=== PATIENT | male | born 1965 | race Caucasian/White ===

== ENCOUNTER 2020-02-11 12:00 | Outpatient (REF) | payer MEDICAID, SELFPAY ==
[2020-02-11 14:13] LABS: Estimated Average Glucose 220 mg/dL; Hemoglobin A1c % 9.3 %
[2020-02-11 14:22] LABS: Anion Gap 20 (12-20); Blood Urea Nitrogen 14 mg/dL (9-16); Carbon Dioxide 20 mmol/L (22-29); Chloride 100 mmol/L (96-108); Estimated Glomerular Filt Rate > 60; Glucose Random 272 mg/dL (60-115); Potassium 4.5 mmol/l (3.3-5.1); Sodium 135 mmol/L (135-145)
[2020-02-11 14:29] LABS: Vitamin D 25-OH Total 21.2 ng/mL (>30)
== END 2020-02-11 12:01 | disposition home or self-care (01) ==
LOC: HO.10HDL 12:00
PROVIDERS: Visit Provider Internal Medicine
DX: E11.9 Type 2 diabetes mellitus without complications (principal); E55.9 Vitamin D deficiency, unspecified; J44.9 Chronic obstructive pulmonary disease, unspecified
CPT/HCPCS: 80048; 82306; 83036

== ENCOUNTER 2020-03-26 12:07 | Outpatient (REF) | payer MEDICAID, SELFPAY ==
[2020-04-10 08:06] LABS: Testosterone, Total 327 ng/dL (250-1100)
== END 2020-03-26 12:08 | disposition home or self-care (01) ==
LOC: HO.10HDL 12:07
PROVIDERS: Visit Provider Urology
DX: E29.1 Testicular hypofunction (principal)
CPT/HCPCS: 84402; 84403

== ENCOUNTER → 2020-04-09 09:55 | Outpatient (BNVA) | payer MEDICAID, SELFPAY | PROVIDERS: PCP Internal Medicine; Visit Provider Urology | DX: Z76.89 Persons encountering health services in other specified circumstances (principal) ==

== ENCOUNTER → 2020-04-16 14:12 | Outpatient (BNVA) | payer MEDICAID, SELFPAY | PROVIDERS: PCP Internal Medicine; Visit Provider Urology | DX: Z76.89 Persons encountering health services in other specified circumstances (principal) ==

== ENCOUNTER 2020-05-15 10:31 | Outpatient (REF) | payer MEDICAID, SELFPAY ==
[2020-05-15 14:19] LABS: Estimated Average Glucose 186 mg/dL; Hemoglobin A1c % 8.1 %
[2020-05-15 14:44] LABS: Anion Gap 21 (12-20); Blood Urea Nitrogen 21 mg/dL (9-16); Calcium 9.5 mg/dL (8.4-10.2); Carbon Dioxide 21 mmol/L (22-29); Chloride 99 mmol/L (96-108); Estimated Glomerular Filt Rate > 60; Glucose Random 221 mg/dL (60-115); Potassium 4.8 mmol/L (3.3-5.1); Sodium 136 mmol/L (135-145)
[2020-05-15 15:06] LABS: Vitamin D 25-OH Total 36.4 ng/mL (>30)
== END 2020-05-15 10:32 | disposition home or self-care (01) ==
LOC: HO.10HDL 10:31
PROVIDERS: Visit Provider Internal Medicine
DX: E11.9 Type 2 diabetes mellitus without complications (principal); J44.9 Chronic obstructive pulmonary disease, unspecified; E55.9 Vitamin D deficiency, unspecified
CPT/HCPCS: 36415; 80048; 82306; 83036

== ENCOUNTER 2020-08-13 09:59 | Outpatient (REF) | payer MEDICAID, SELFPAY ==
[2020-08-13 12:49] LABS: MANUAL DIFF FLAG NO
[2020-08-13 12:57] LABS: Basophils Percent Auto 0.6 % (0-2); Eosinophils Absolute Auto 0.3 X10*3/uL (0.0-0.4); Eosinophils Percent Auto 3.6 % (0-4); Hematocrit 41.6 % (42-52); Hemoglobin 14.2 g/dl (14.0-18.0); Imm Gran Abs Auto 0.05 X10*3/uL (0.00-0.03); Imm Gran Pct Auto 0.7 % (0.0-0.4); Lymphocytes Absolute Auto 1.8 X10*3/uL (1.2-4.9); Lymphocytes Percent Auto 26.1 % (20-40); Mean Corpuscular HGB Conc 34.1 g/dl (31.0-36.0); Mean Corpuscular Hemoglobin 31.8 pg (27.0-33.0); Mean Corpuscular Volume 93.3 fL (80-98); Mean Platelet Volume 10.3 fL (9.4-12.4); Monocytes Absolute Auto 0.6 X10*3/uL (0.1-1.2); Monocytes Percent Auto 8.1 % (2-11); Neutrophils Absolute Auto 4.2 X10*3/uL (2.0-8.3); Neutrophils Percent Auto 60.9 % (45-73); Platelet Count 282 X10*3/uL (160-400); Red Blood Count 4.46 X10*6/uL (4.60-5.80); Red Cell Distribution Width 13.4 % (11.0-16.0); White Blood Count 6.9 X10*3/uL (4.8-10.8)
[2020-08-13 13:08] LABS: Estimated Average Glucose 197 mg/dL; Hemoglobin A1c % 8.5 %
[2020-08-13 13:23] LABS: Alanine Aminotransferase 16 U/L (0-40); Albumin Level 4.3 g/dL (3.5-5.0); Alkaline Phosphatase 108 U/L (39-117); Anion Gap 17 (12-20); Aspartate Amino Transferase 17 U/L (5-37); Bilirubin Total 0.5 mg/dL (0.0-1.0); Blood Urea Nitrogen 23 mg/dL (9-16); Carbon Dioxide 24 mmol/L (22-29); Chloride 103 mmol/L (96-108); Estimated Glomerular Filt Rate 56; Glucose Random 220 mg/dL (60-115); Sodium 139 mmol/L (135-145); Total Protein 7.2 g/dL (6.5-8.0)
[2020-08-13 13:26] LABS: Creatinine Urine 106.16 mg/dL; Microalbum/Creatinine Ratio Ur 60.2 ug/mg cr
== END 2020-08-13 10:00 | disposition home or self-care (01) ==
LOC: HO.10HDL 09:59
PROVIDERS: Visit Provider Internal Medicine
DX: E11.9 Type 2 diabetes mellitus without complications (principal); J44.9 Chronic obstructive pulmonary disease, unspecified
CPT/HCPCS: 36415; 80053; 82043; 83036; 85025

== ENCOUNTER 2020-09-06 13:37 | Emergency (ER) | payer MEDICAID, SELFPAY ==
--- NOTE | 2020-09-06 | ECG_ITS ---
Test Reason : CHEST PAIN Blood Pressure : / mmHG Vent. Rate : 089 BPM Atrial Rate : 089 BPM P-R Int : 130 ms QRS Dur : 078 ms QT Int : 332 ms P-R-T Axes : -29 004 052 degrees QTc Int : 403 ms Normal sinus rhythm Normal ECG When compared with ECG of 30-APR-2019 18:45, No significant change was found Referred By: Generic ED Physician Electronically Signed By:SIMONE VALDOVINOS
--- NOTE | ~2020-09-06 | XR_ITS ---
EXAMINATION: XR CHEST CLINICAL INFORMATION: Chest pain COMPARISON: 04/30/2019 chest x-ray TECHNIQUE: 2 views of the chest were obtained. FINDINGS: Stable cardiac and mediastinal silhouette. No focal consolidation. No effusion or pulmonary edema. No pneumothorax. Stable mild coarsening of interstitium in bilateral lower lungs. Thoracic spine degeneration. Spinal fusion hardware. XR/XR chest 2V IMPRESSION: No evidence of airspace consolidation or pulmonary edema.
[2020-09-06 13:47] VITALS: BP 152/91; PULSE 96; RESP 19; TEMP 36.2; O2SAT 96; BMI 34.7
[2020-09-06 14:00] VITALS: BP 126/78; PULSE 89; RESP 14; O2SAT 94
--- NOTE | 2020-09-06 14:01 | ED_ITS ---
HPI - Chest Pain General Chief Complaint: Chest Pain Stated Complaint: CHEST AND BACK PAIN Time Seen by Provider: 09/06/20 14:01 Source: patient Mode of arrival: ambulatory Limitations: no limitations History of Present Illness HPI narrative: 55-year-old male who presents emergency department for evaluation of lower back pain and chest pain. Patient states that he has history of chronic lower back pain secondary to disc disease and arthritis. He states that over the last 3 weeks he has had increased back pain. He points to his lumbar area of his lower back when asked to localize the pain. He describes the pain as a constant, squeezing pain which is worse if he stands, better if he bends over. The pain is worse at night worse in the morning. He states that he has been taking Tylenol for the pain with no relief. States this pain is currently 10/10. The pain does radiate down his left leg. He states that he does have chronic numbness of the left lower extremity but no weakness. He denies loss of bowel or bladder control. He denies frequency, urgency or dysuria. He denied fever or chills. The patient states that he has also developed left-sided chest pain. He states that the pain is very brief and lasts seconds to minutes. The pain is worse with movement. He states that he occasionally feels short of breath but denied dyspnea on exertion. He states that the chest pain is [id number] in intensity. Related Data Previous Rx's Medication Instructions Recorded tamsulosin 0.4 mg capsule 0.4 mg PO DAILY #30 cap 03/17/20 testosterone 20.25 mg/1.25 gram 20.25 mg TRANSDERMAL DAILY 30 Days 09/02/20 (1.62 %) transdermal gel pump #120 g hydrocodone-acetaminophen 1 tab PO Q4H PRN #14 tab 09/06/20 prednisone 40 mg PO DAILY 5 Days #10 tab 09/06/20 Allergies Allergy/AdvReac Type Severity Reaction Status Date / Time morphine [MORPHINE] Allergy Unknown NAUSEA, Unverified 12/27/19 18:15 nausea and vomiting Review of Systems Review of Systems: Yes all other systems are reviewed and are negative [facility] Past Medical History [facility] Narrative: Social history: Patient smokes 1 pack of cigarettes per day times 25 years, he occasionally drinks alcohol, he denies drug use. Medical History Elevated PSA Enlarged prostate with lower urinary tract symptoms (LUTS) Erectile dysfunction due to diseases classified elsewhere Other obstructive and reflux uropathy Peyronie's disease Rotator cuff impingement syndrome of left shoulder Type II diabetes mellitus Family History Family History Father No problems noted. Mother No problems noted. Social History Social History Advance Directives: Yes Advance Directives Information Provided: Yes Advance Directives on File: No Physical Exam Vital Signs: Vital Signs: Last Vital Signs Temp 97.1 F 09/06/20 13:47 Pulse 89 09/06/20 14:00 Resp 14 09/06/20 14:00 BP 126/78 09/06/20 14:00 Pulse Ox 94 09/06/20 14:00 Body Mass Index 34.7 Const: General: cooperative Orientation/consciousness: oriented to person and oriented to place Limitations: no limitations HENMT: Head: Yes normal to inspection, Yes normocephalic and Yes atraumatic Ears: external ears normal General nose exam: Normal external nose present Face and sinus: Yes normal facial exam Mouth: Normal oral and palatal mucosa present Throat: Yes posterior oropharynx normal Eyes: Periorbital: periorbital findings normal Eyelids: Yes eyelids normal Conjunctivae: conjunctivae normal Sclerae: sclerae normal Corneas: co rneas normal Pupils: Equal, round and reactive pupils present Direct Ophthalmoscopy: normal light reflex Neck: Neck: Yes full ROM, Yes no lymphadenopathy, Yes no meningeal signs, Yes trachea midline and Yes supple Chest: Chest palpation & inspection: normal inspection of the chest and normal palpation of entire chest wall Resp: Effort & Inspection: normal respiratory effort and able to speak in complete sentences Auscultation: clear to auscultation bilaterally Cardio: Rate: regular rate Rhythm: regular rhythm Heart sounds: S1 normal heart sound present, S2 normal heart sound present and no murmurs GI: Inspection: Yes normal to inspection Palpation (GI): Soft to palpation, nontender, no guarding, not rigid and No hepatosplenomegaly present : General: Yes no CVA tenderness Back/Spine/Pelvis: Back: no CVA tenderness Cervical Spine: normal cervical lordosis Thoracic/Lumbar Spine: thoracic and lumbar spine normal to inspection, straight leg raise negative bilaterally, paraspinal muscle tenderness bilaterally in the lower lumbar and lumbar spinal tenderness Skin: Lesions: no lesions Rashes: no rashes Wounds: no wounds Neuro: General: oriented to person, oriented to place and no meningeal signs Cranial nerves: Yes CN's II-XII intact bilaterally and Yes Equal, round and reactive pupils present Cognition (Neuro): normal cognition Motor exam (ne uro): 5/5 motor strength present throughout Extrem: General: Yes normal to inspection and Yes full ROM Psych: Appearance: well kempt Mental Status: mental status grossly normal Speech and movement: Normal speech and movement present Affect: normal aff ect Attitude: cooperative Thought process: Normal thought process present Thought content: Normal thought content present Course Course Course Narrative: 55-year-old male with history of chronic lower back pain secondary to disc disease and arthritis who presents emergency department for evaluation of lower back pain x3 weeks with worsening pain over the last 2-3 days. He also complained of left-sided chest pain. Physical examination did reveal pain with palpation of his the lumbar spine and lumbar paraspinal muscles otherwise was unremarkable. His vital signs revealed elevated blood pressure 152/91 otherwise were unremarkable. Twelve lead EKG was unremarkable. Laboratory evaluation revealed an elevated glucose of 228 and a detectable but not elevated high sensitive troponin of 3.7. Chest x-ray was unremarkable. At this time I do not think that his chest pain is secondary to myocardial injury. His back pain is most likely caused by flare-up of his chronic back pain. He was treated with Dilaudid 1 mg IV with improvement of his pain. He states that he has been treated with Vicodin in the past as well. Patient will be started on prednisone 40 mg once a day for 5 days and Vicodin/Forgan 1 pill every 4-6 hours as needed for pain. He was given verbal and printed instructions and discharged home. MDM - Chest Pain Lab Data Result diagrams: 09/06/20 14:26 09/06/20 14:26 Labs: Lab Results 09/06/20 09/06/20 09/06/20 Range/Units 14:26 14:26 14:26 WBC 7.7 (4.8-10.8) X10*3/uL RBC 4.79 (4.60-5.80) X10*6/uL Hgb 15.4 (14.0-18.0) g/dl Hct 44.2 (42-52) % MCV 92.3 (80-98) fL MCH 32.2 (27.0-33.0) pg MCHC 34.8 (31.0-36.0) g/dl RDW 13.3 (11.0-16.0) % Plt Count 295 (160-400) X10*3/uL MPV 9.6 (9.4-12.4) fL Immature Gran % (Auto) 1.0 H (0.0-0.4) % Neut % (Auto) 63.7 (45-73) % Lymph % (Auto) 23.3 (20-40) % [place] % (Auto) 8.6 (2-11) % Eos % (Auto) 2.6 (0-4) % Baso % (Auto) 0.8 (0-2) % Lymph # (Auto) 1.8 (1.2-4.9) X10*3/uL [place] # (Auto) 0.7 (0.1-1.2) X10*3/uL Eos # (Auto) 0.2 (0.0-0.4) X10*3/uL Baso # (Auto) 0.1 (0.0-0.2) X10*3/uL Abs Immat Gran (auto) 0.08 H (0.00-0.03) X10*3/uL Absolute Neuts (auto) 4.9 (2.0-8.3) X10*3/uL Absolute Nucleated RBC 0.000 (0.0-0.012) X10*3/uL Nucleated RBC % (auto) 0.0 (0.0-0.2) /100WBC Sodium 138 (135-145) mmol/L Potassium 4.6 (3.3-5.1) mmol/L Chloride 101 (96-108) mmol/L Carbon Dioxide 24 (22-29) mmol/L Anion Gap 18 (12-20) BUN 22 H (9-16) mg/dL Creatinine 1.11 (0.5-1.4) mg/dL Estim Creat Clear Calc 88.3 Estimated GFR > 60 Random Glucose 228 H (60-115) mg/dL Calcium 10.4 H (8.4-10.2) mg/dL Total Bilirubin 0.4 (0.0-1.0) mg/dL AST 19 (5-37) U/L ALT 24 (0-40) U/L Alkaline Phosphatase 94 (39-117) U/L Troponin I High Sens 3.7 (<3.5-35.0) ng/L Total Protein 7.8 (6.5-8.0) g/dL Albumin 4.8 (3.5-5.0) g/dL ECG Data ECG #1: Attestation: I personally reviewed and interpreted this ECG as follows: Interpretation: 1418: Normal sinus rhythm rate of 89, normal [place], QRS and QTC intervals, no ST segment elevation, no ST segment depression, no PA Cs, no PVCs, this is a normal EKG. Discharge Plan Discharge Clinical Impression: Acute lumbar back pain Qualifiers: Back pain laterality: midline Sciatica presence: without sciatica Qualified Code(s): M54.5 - Low back pain Chest pain Qualifiers: Chest pain type: other chest pain Qualified Code(s): R07.89 - Other chest pain Patient Disposition: Home, Self-Care Instructions: Acute Low Back Pain (ED) Additional Instructions: Your laboratory evaluation was unremarkable. Your 12 lead EKG was unremarkable. Your chest x-ray was unremarkable. Your lower back pain is most likely caused by a flare-up of your chronic back p ain. Take prednisone 20 mg pills, 2 pills once a day for 5 days. This is a strong anti-inflammatory pain medication. Do not take any [id number] anti- inflammatory medications while you taking prednisone such as Advil, Motrin, ibuprofen, Aleve, naproxen. Take Tylenol (acetaminophen) 500 mg pills, 2 pills every 4 to 6 hours as needed for pain. For pain not relieved by prednisone or Tylenol take Vicodin/Forgan 1 pill every 4-6 hours as needed for pain. Follow-up with your doctor in 2 days. Please return to the emergency department if your symptoms get worse or if you develop any symptoms that are concerning to you. Prescriptions: New hydrocodone-acetaminophen 5-325 mg tablet 1 tab PO Q4H PRN (Reason: pain) Qty: 14 RF: 0 prednisone 20 mg tablet 40 mg PO DAILY 5 Days Qty: 10 RF: 0 No Action tamsulosin 0.4 mg capsule 0.4 mg PO DAILY Qty: 30 RF: 5 testosterone 20.25 mg/1.25 gram (1.62 %) gel in metered-dose pump 20.25 mg transdermal DAILY 30 Days Qty: 120 RF: 3
[2020-09-06 14:30] LABS: MANUAL DIFF FLAG NO
[2020-09-06 14:31] LABS: Basophils Absolute Auto 0.1 X10*3/uL (0.0-0.2); Basophils Percent Auto 0.8 % (0-2); Eosinophils Absolute Auto 0.2 X10*3/uL (0.0-0.4); Eosinophils Percent Auto 2.6 % (0-4); Hematocrit 44.2 % (42-52); Hemoglobin 15.4 g/dl (14.0-18.0); Imm Gran Abs Auto 0.08 X10*3/uL (0.00-0.03); Lymphocytes Absolute Auto 1.8 X10*3/uL (1.2-4.9); Lymphocytes Percent Auto 23.3 % (20-40); Mean Corpuscular HGB Conc 34.8 g/dl (31.0-36.0); Mean Corpuscular Hemoglobin 32.2 pg (27.0-33.0); Mean Corpuscular Volume 92.3 fL (80-98); Mean Platelet Volume 9.6 fL (9.4-12.4); Monocytes Absolute Auto 0.7 X10*3/uL (0.1-1.2); Monocytes Percent Auto 8.6 % (2-11); Neutrophils Absolute Auto 4.9 X10*3/uL (2.0-8.3); Neutrophils Percent Auto 63.7 % (45-73); Platelet Count 295 X10*3/uL (160-400); Red Blood Count 4.79 X10*6/uL (4.60-5.80); Red Cell Distribution Width 13.3 % (11.0-16.0); White Blood Count 7.7 X10*3/uL (4.8-10.8)
[2020-09-06 14:54] LABS: Troponin-I High Sensitivity 3.7 ng/L (<3.5-35.0)
[2020-09-06 15:05] LABS: Alanine Aminotransferase 24 U/L (0-40); Albumin Level 4.8 g/dL (3.5-5.0); Alkaline Phosphatase 94 U/L (39-117); Anion Gap 18 (12-20); Aspartate Amino Transferase 19 U/L (5-37); Bilirubin Total 0.4 mg/dL (0.0-1.0); Blood Urea Nitrogen 22 mg/dL (9-16); Calcium 10.4 mg/dL (8.4-10.2); Carbon Dioxide 24 mmol/L (22-29); Chloride 101 mmol/L (96-108); Creatinine Clr Calc Pharmacy 88.3; Estimated Glomerular Filt Rate > 60; Glucose Random 228 mg/dL (60-115); Potassium 4.6 mmol/L (3.3-5.1); Sodium 138 mmol/L (135-145); Total Protein 7.8 g/dL (6.5-8.0)
[2020-09-06] MEDS: HYDROmorphone HCl 1 MG/ML SYRINGE IVPUSH (15:14)
[2020-09-06 16:16] VITALS: BP 105/63; PULSE 88; RESP 18; TEMP 36.8; O2SAT 95
== END 2020-09-06 16:48 | disposition home or self-care (01) ==
PROVIDERS: Emergency Provider Emergency Medicine Emergency Medical Services; PCP Internal Medicine
DX: R07.9 Chest pain, unspecified (principal); M54.5 Low back pain; Z79.899 Other long term (current) drug therapy
CPT/HCPCS: 36415; 71046; 80053; 84484; 85025; 93005; 96374; 99284; J1170

== ENCOUNTER 2020-10-24 11:40 | Emergency (ER) | payer MEDICAID, SELFPAY ==
[2020-10-24 11:54] VITALS: BP 131/77; PULSE 103; RESP 22; TEMP 36.6; O2SAT 92; BMI 34.0
[2020-10-24] MEDS: Tetracaine HCl/PF 0.5% Oph Sol 4 ML DROPS 2 DROP EYE-RIGHT (12:39)
[2020-10-24] MEDS: Fluorescein Sodium STRIP 1 STRIP EYE-RIGHT (12:40)
--- NOTE | 2020-10-24 12:50 | ED.EYEPROB ---
HPI - Eye Problem General Chief complaint: Eye Problems Stated complaint: eye injury Time Seen by Provider: 10/24/20 12:32 Source: patient Mode of arrival: wheelchair Limitations: no limitations History of Present Illness HPI Narrative: Patient is a 55-year-old female with no significant past medical history who scratched his eye and a flap of a cardboard box last night. Patient states he rinsed his eye out but it has been very painful since. He states he could take the pain anymore so he came in today. He states he can see shapes and light out of that eye but that is all. Related Data Previous Rx's Medication Instructions Recorded tamsulosin 0.4 mg capsule 0.4 mg PO DAILY #30 cap 03/17/20 testosterone 20.25 mg/1.25 gram 20.25 mg TRANSDERMAL DAILY 30 Days 09/02/20 (1.62 %) transdermal gel pump #120 g hydrocodone-acetaminophen 1 tab PO Q4H PRN #14 tab 09/06/20 prednisone 40 mg PO DAILY 5 Days #10 tab 09/06/20 oxycodone 5 mg PO Q6H PRN #20 tab 10/24/20 Allergies Allergy/AdvReac Type Severity Reaction Status Date / Time morphine [MORPHINE] Allergy Unknown NAUSEA, Verified 10/24/20 11:54 nausea and vomiting Review of Systems Review of Systems: Yes all other systems are reviewed and are negative [facility] Past Medical History Medical History Elevated PSA Enlarged prostate with lower urinary tract symptoms (LUTS) Erectile dysfunction due to diseases classified elsewhere Other obstructive and reflux uropathy Peyronie's disease Rotator cuff impingement syndrome of left shoulder Type II diabetes mellitus Family History Family History Father No problems noted. Mother No problems noted. Social History Social History Advance Directives: No Advance Directives Information Provided: Yes Physical Exam Vital Signs: Vital Signs: Last Vital Signs Temp 97.9 F 10/24/20 11:54 Pulse 103 H 10/24/20 11:54 Resp 22 H 10/24/20 11:54 BP 131/77 10/24/20 11:54 Pulse Ox 92 10/24/20 11:54 Body Mass Index 34.0 Const: General: cooperative, healthy appearing, comfortable and no acute distress Nutritional Appearance: average body habitus Orientation/consciousness: patient oriented x3 HENMT: Head: Yes normal to inspection, Yes No palpable skull fracture present, Yes normocephalic and Yes atraumatic Ears: hearing grossly normal bilaterally Eyes: Alignment and Position: alignment normal and position normal Periorbital: periorbital findings normal Corneas: corneas abnormal on the right fluorescein used and abrasion (covering almost entire iris) diffuse and fluorescein used EOM: EOMs intact bilaterally Neck: Neck: Yes normal visual inspection and Yes full ROM Resp: Effort & Inspection: normal respiratory effort and able to speak in complete sentences Neuro: General: patient oriented x3 Course Course Course Narrative: Dr. Goss examined patient, concurred with assessment and plan Procedures Procedure Narrative Procedure Narrative: Applied tetracaine, 1 drop to right eye, used fluorescein dye and looked with a Wood's lamp to see diffuse corneal abrasion on the right eye covering almost the entire iris. Discharge Plan Discharge Clinical Impression: Abrasion, corneal Qualifiers: Encounter type: initial encounter Laterality: right Qualified Code(s): S05.01XA - Injury of conjunctiva and corneal abrasion without foreign body, right eye, initial encounter Patient Disposition: Home, Self-Care Instructions: Corneal Abrasion (ED) Additional Instructions: I have made an appointment for you with an quantity surveyor, Dr. Loving at the [facility] [employer] [facility] [employer] [facility] [address] [facility] in [place]. Your appointment is at 09:00 on TuesdayOctober 27. They asked that you come alone and wear a mask and if you are having any cold or flu symptoms that you call them to reschedule. Their phone number is [phone]. If you experience changes in your vision or pain that cannot be controlled with the oxycodone, please return to the emergency department. Prescriptions: New oxycodone 5 mg tablet 5 mg PO Q6H PRN (Reason: pain) Qty: 20 RF: 0 No Action tamsulosin 0.4 mg capsule 0.4 mg PO DAILY Qty: 30 RF: 5 testosterone 20.25 mg/1.25 gram (1.62 %) gel in metered-dose pump 20.25 mg transdermal DAILY 30 Days Qty: 120 RF: 3 hydrocodone-acetaminophen 5-325 mg tablet 1 tab PO Q4H PRN (Reason: pain) Qty: 14 RF: 0 prednisone 20 mg tablet 40 mg PO DAILY 5 Days Qty: 10 RF: 0 Referrals: Tee Zavala MD [Physician] - 3 days (9am Tuesday)
[2020-10-24] MEDS: Erythromycin Base 0.5% Oph Oin 1 GM TUBE 1 CM EYE-RIGHT (13:43)
[2020-10-24] MEDS: oxyCODONE HCl Immed Release 5 MG TABLET PO (13:43)
== END 2020-10-24 14:03 | disposition home or self-care (01) ==
PROVIDERS: Emergency Provider Emergency Medicine; PCP Internal Medicine
DX: S05.01XA Injury of conjunctiva and corneal abrasion without foreign body, right eye, initial encounter (principal); X58.XXXA Exposure to other specified factors, initial encounter; Y93.9 Activity, unspecified; Y92.9 Unspecified place or not applicable; Y99.9 Unspecified external cause status
CPT/HCPCS: 99283

== ENCOUNTER 2020-11-21 12:08 | Outpatient (REF) | payer MEDICAID, SELFPAY ==
[2020-11-21 13:30] LABS: MANUAL DIFF FLAG NO
[2020-11-21 13:31] LABS: Basophils Percent Auto 0.6 % (0-2); Eosinophils Absolute Auto 0.2 X10*3/uL (0.0-0.4); Eosinophils Percent Auto 2.9 % (0-4); Hematocrit 42.9 % (42-52); Hemoglobin 14.5 g/dl (14.0-18.0); Imm Gran Abs Auto 0.08 X10*3/uL (0.00-0.03); Imm Gran Pct Auto 1.3 % (0.0-0.4); Lymphocytes Absolute Auto 1.6 X10*3/uL (1.2-4.9); Lymphocytes Percent Auto 26.4 % (20-40); Mean Corpuscular HGB Conc 33.8 g/dl (31.0-36.0); Mean Corpuscular Hemoglobin 31.5 pg (27.0-33.0); Mean Corpuscular Volume 93.1 fL (80-98); Mean Platelet Volume 10.1 fL (9.4-12.4); Monocytes Absolute Auto 0.6 X10*3/uL (0.1-1.2); Monocytes Percent Auto 10.2 % (2-11); Neutrophils Absolute Auto 3.6 X10*3/uL (2.0-8.3); Neutrophils Percent Auto 58.6 % (45-73); Platelet Count 249 X10*3/uL (160-400); Red Blood Count 4.61 X10*6/uL (4.60-5.80); Red Cell Distribution Width 13.4 % (11.0-16.0); White Blood Count 6.2 X10*3/uL (4.8-10.8)
[2020-11-21 13:45] LABS: Estimated Average Glucose 200 mg/dL; Hemoglobin A1c % 8.6 %
[2020-11-21 13:53] LABS: Alanine Aminotransferase 21 U/L (0-40); Albumin Level 4.5 g/dL (3.5-5.0); Alkaline Phosphatase 78 U/L (39-117); Anion Gap 17 (12-20); Aspartate Amino Transferase 17 U/L (5-37); Bilirubin Total 0.2 mg/dL (0.0-1.0); Blood Urea Nitrogen 22 mg/dL (9-16); Calcium 10.5 mg/dL (8.4-10.2); Carbon Dioxide 25 mmol/L (22-29); Chloride 102 mmol/L (96-108); Estimated Glomerular Filt Rate > 60; Glucose Random 196 mg/dL (60-115); Potassium 4.7 mmol/L (3.3-5.1); Sodium 139 mmol/L (135-145); Total Protein 7.3 g/dL (6.5-8.0)
[2020-11-21 14:27] LABS: Creatinine Urine 73.97 mg/dL; Microalbum/Creatinine Ratio Ur 155.4 ug/mg cr
[2020-11-28 12:01] LABS: Testosterone, Total 1009 ng/dL (250-1100)
== END 2020-11-21 12:09 | disposition home or self-care (01) ==
LOC: HO.LAB 12:08
PROVIDERS: Absent Provider Internal Medicine; PCP Internal Medicine; Visit Provider Urology
DX: E29.1 Testicular hypofunction (principal); E11.9 Type 2 diabetes mellitus without complications; I10 Essential (primary) hypertension; J44.9 Chronic obstructive pulmonary disease, unspecified
CPT/HCPCS: 36415; 80053; 82043; 83036; 84403; 85025

== ENCOUNTER → 2020-12-12 11:20 | Outpatient (BNVA) | payer MEDICAID, SELFPAY | PROVIDERS: PCP Internal Medicine; Visit Provider Urology ==

== ENCOUNTER 2020-12-26 16:11 | Outpatient (REF) | payer MEDICAID, SELFPAY ==
[2020-12-26 18:11] LABS: Hematocrit 39.2 % (42-52); Hemoglobin 13.6 g/dl (14.0-18.0); Mean Corpuscular HGB Conc 34.7 g/dl (31.0-36.0); Mean Corpuscular Hemoglobin 32.4 pg (27.0-33.0); Mean Corpuscular Volume 93.3 fL (80-98); Mean Platelet Volume 9.6 fL (9.4-12.4); Platelet Count 345 X10*3/uL (160-400); Red Cell Distribution Width 13.2 % (11.0-16.0); White Blood Count 7.4 X10*3/uL (4.8-10.8)
[2020-12-26 18:15] LABS: Appearance Urine CLEAR; Color Urine YELLOW; Glucose Urine UA >=1000 MG/DL (NEG); Leukocyte Esterase Urine NEG (NEG); Nitrite Urine NEG (NEG); Specific Gravity - Urine 1.025 (1.005-1.025); Urine Blood NEG (NEG); Urine Ketones NEG (NEG); Urine Protein 1+ MG/DL (NEG-TRACE)
[2020-12-26 18:30] LABS: Creatinine Urine 118.17 mg/dL; Microalbum/Creatinine Ratio Ur 236.9 ug/mg cr; Total Protein Urine Random 43 mg/dL (<12)
[2020-12-26 18:47] LABS: Squamous Epithelial Cell Urine TRACE /LPF; WBC Urine 0-2 /HPF (0-4)
[2020-12-26 19:07] LABS: Albumin Level 4.5 g/dL (3.5-5.0); Blood Urea Nitrogen 18 mg/dL (9-16); Calcium 10.6 mg/dL (8.4-10.2); Estimated Glomerular Filt Rate > 60; Magnesium 1.3 mg/dL (1.6-2.6); Phosphorus 3.3 mg/dL (2.7-4.5)
[2020-12-26 19:11] LABS: Vitamin D 25-OH Total 42.6 ng/mL (>30)
[2020-12-26 20:13] LABS: Anion Gap 17 (12-20); Carbon Dioxide 23 mmol/L (22-29); Chloride 101 mmol/L (96-108); Potassium 4.3 mmol/L (3.3-5.1); Sodium 137 mmol/L (135-145)
[2020-12-26 20:18] LABS: Renal w Reflex Lab Use Only Order verified
[2020-12-29 14:02] LABS: Calcium (PTHI) 10.2 mg/dL (8.6-10.3); PTHI 16 pg/mL (14-64)
== END 2020-12-26 16:12 | disposition home or self-care (01) ==
LOC: HO.LAB 16:11
PROVIDERS: PCP Internal Medicine; Visit Provider Internal Medicine Nephrology
DX: I10 Essential (primary) hypertension (principal); E11.21 Type 2 diabetes mellitus with diabetic nephropathy
CPT/HCPCS: 36415; 80051; 81001; 82040; 82043; 82306; 82310; 82565; 83735; 83970; 84100; 84156; 84520; 85027; 87086

== ENCOUNTER 2021-02-21 10:10 | Outpatient (REF) | payer MEDICAID, SELFPAY ==
[2021-02-21 11:45] LABS: Estimated Average Glucose 183 mg/dL
[2021-02-21 12:06] LABS: Creatinine Urine 194.38 mg/dL; Microalbum/Creatinine Ratio Ur 98.7 ug/mg cr
[2021-02-21 12:12] LABS: Alanine Aminotransferase 23 U/L (0-40); Albumin Level 4.4 g/dL (3.5-5.0); Alkaline Phosphatase 78 U/L (39-117); Anion Gap 17 (12-20); Aspartate Amino Transferase 17 U/L (5-37); Bilirubin Total 0.3 mg/dL (0.0-1.0); Blood Urea Nitrogen 21 mg/dL (9-16); Calcium 9.8 mg/dL (8.4-10.2); Carbon Dioxide 21 mmol/L (22-29); Chloride 105 mmol/L (96-108); Estimated Glomerular Filt Rate > 60; Glucose Fasting 168 mg/dL (60-99); Potassium 4.8 mmol/L (3.3-5.1); Sodium 138 mmol/L (135-145); Total Protein 7.4 g/dL (6.5-8.0)
== END 2021-02-21 10:11 | disposition home or self-care (01) ==
LOC: HO.LAB 10:10
PROVIDERS: PCP Internal Medicine; Visit Provider Internal Medicine
DX: E11.9 Type 2 diabetes mellitus without complications (principal); I10 Essential (primary) hypertension; J44.9 Chronic obstructive pulmonary disease, unspecified
CPT/HCPCS: 36415; 80053; 82043; 83036

== ENCOUNTER 2021-04-29 13:43 | Outpatient (REF) | payer MEDICAID, SELFPAY ==
[2021-04-29 14:48] LABS: Calcium 10.9 mg/dL (8.4-10.2)
[2021-04-29 14:49] LABS: Anion Gap 16 (12-20); Blood Urea Nitrogen 18 mg/dL (9-16); Carbon Dioxide 22 mmol/L (22-29); Chloride 103 mmol/L (96-108); Estimated Glomerular Filt Rate > 60; Glucose Random 216 mg/dL (60-115); Potassium 4.5 mmol/L (3.3-5.1); Sodium 136 mmol/L (135-145)
[2021-04-29 15:00] LABS: Creatinine Urine 104.47 mg/dL; Protein/Creatinine Ratio, Ur 0.16 (<0.2); Total Protein Urine Random 17 mg/dL (<12)
[2021-04-30 16:16] LABS: Calcium (PTHI) 10.7 mg/dL (8.6-10.3); PTHI 9 pg/mL (14-64)
[2021-05-01 20:55] LABS: Prot Elec - Albumin 4.6 g/dL (3.8-4.8); Prot Elec - Alpha1 0.3 g/dL (0.2-0.3); Prot Elec - Alpha2 0.9 g/dL (0.5-0.9); Prot Elec - Beta 1 0.5 g/dL (0.4-0.6); Prot Elec - Beta 2 0.4 g/dL (0.2-0.5); Prot Elec - Gamma 0.8 g/dL (0.8-1.7); Prot Elec - Total Protein 7.4 g/dL (6.1-8.1)
== END 2021-04-29 13:44 | disposition home or self-care (01) ==
LOC: HO.LAB 13:43
PROVIDERS: PCP Internal Medicine; Visit Provider Internal Medicine Hypertension Specialist
DX: E11.29 Type 2 diabetes mellitus with other diabetic kidney complication (principal)
CPT/HCPCS: 36415; 80048; 83970; 84156; 84165

== ENCOUNTER 2021-06-08 09:50 | Outpatient (REF) | payer MEDICAID, SELFPAY ==
[2021-06-08 14:39] LABS: PSA,Total (Free>4and<10) 0.53 ng/mL (0.00-4.00)
[2021-06-13 09:15] LABS: Testosterone, Free 225.5 pg/mL (35.0-155.0); Testosterone, Total 716 ng/dL (250-1100)
== END 2021-06-08 09:51 | disposition home or self-care (01) ==
LOC: HO.10HDL 09:50
PROVIDERS: Visit Provider Urology
DX: E29.1 Testicular hypofunction (principal); Z12.5 Encounter for screening for malignant neoplasm of prostate
CPT/HCPCS: 36415; 84153; 84402; 84403

== ENCOUNTER → 2021-06-17 10:00 | Outpatient (BNVA) | payer MEDICAID, SELFPAY | PROVIDERS: PCP Internal Medicine; Visit Provider Urology ==

== ENCOUNTER 2021-06-24 11:28 | Outpatient (REF) | payer MEDICAID, SELFPAY ==
[2021-06-24 14:17] LABS: Estimated Average Glucose 169 mg/dL; Hemoglobin A1c % 7.5 %
[2021-06-24 14:53] LABS: Anion Gap 17 (12-20); Blood Urea Nitrogen 24 mg/dL (9-16); Calcium 10.9 mg/dL (8.4-10.2); Carbon Dioxide 23 mmol/L (22-29); Chloride 99 mmol/L (96-108); Estimated Glomerular Filt Rate > 60; Glucose Random 250 mg/dL (60-115); Sodium 134 mmol/L (135-145)
== END 2021-06-24 11:29 | disposition home or self-care (01) ==
LOC: HO.10HDL 11:28
PROVIDERS: PCP Internal Medicine; Visit Provider Internal Medicine
DX: E11.9 Type 2 diabetes mellitus without complications (principal); J44.9 Chronic obstructive pulmonary disease, unspecified; I10 Essential (primary) hypertension
CPT/HCPCS: 36415; 80048; 83036

== ENCOUNTER 2021-08-21 07:21 | Outpatient (REF) | payer MEDICAID, SELFPAY ==
--- NOTE | ~2021-08-21 | XR_ITS ---
EXAMINATION: XR SHOULDER, RIGHT CLINICAL INFORMATION: Pain right shoulder. COMPARISON: None TECHNIQUE: Three views of the right shoulder. FINDINGS: There is mild loss of right AC and glenohumeral joint space without any bony erosive changes. No visible acute fracture, dislocation or subluxation seen. The soft tissues are normal. XR/XR shoulder RT min 2V IMPRESSION: Mild degenerative changes right shoulder joint. No visible acute fracture, dislocation or subluxation seen.
== END 2021-08-21 07:22 | disposition home or self-care (01) ==
LOC: HO.HOSX 07:21
PROVIDERS: Visit Provider Orthopaedic Surgery
DX: M75.41 Impingement syndrome of right shoulder (principal); E11.9 Type 2 diabetes mellitus without complications; M89.8X1 Other specified disorders of bone, shoulder
CPT/HCPCS: 20610; 73030; 99202; J1100

== ENCOUNTER → 2021-09-15 09:41 | Outpatient (BNVA) | payer MEDICAID, SELFPAY | PROVIDERS: PCP Internal Medicine; Visit Provider Orthopaedic Surgery | DX: M72.0 Palmar fascial fibromatosis [Dupuytren] (principal); R20.0 Anesthesia of skin; R20.2 Paresthesia of skin; M62.542 Muscle wasting and atrophy, not elsewhere classified, left hand; M62.541 Muscle wasting and atrophy, not elsewhere classified, right hand | CPT/HCPCS: 99202 ==

== ENCOUNTER 2021-10-28 11:54 | Outpatient (REF) | payer MEDICAID, SELFPAY ==
[2021-10-28 13:59] LABS: Alanine Aminotransferase 16 U/L (0-40); Albumin Level 4.6 g/dL (3.5-5.0); Alkaline Phosphatase 81 U/L (39-117); Anion Gap 16 (12-20); Aspartate Amino Transferase 18 U/L (5-37); Bilirubin Total 0.3 mg/dL (0.0-1.0); Blood Urea Nitrogen 16 mg/dL (9-16); Calcium 9.4 mg/dL (8.4-10.2); Carbon Dioxide 23 mmol/L (22-29); Chloride 105 mmol/L (96-108); Estimated Glomerular Filt Rate > 60; Glucose Random 150 mg/dL (60-115); Potassium 4.9 mmol/L (3.3-5.1); Sodium 139 mmol/L (135-145); Total Protein 7.3 g/dL (6.5-8.0)
[2021-10-28 14:41] LABS: Creatinine Urine 93.34 mg/dL; Total Protein Urine Random 33 mg/dL (<12)
[2021-10-30 11:17] LABS: Calcium (PTHI) 9.6 mg/dL (8.6-10.3); PTHI 30 pg/mL (16-77)
== END 2021-10-28 11:55 | disposition home or self-care (01) ==
LOC: HO.10HDL 11:54
PROVIDERS: Visit Provider Internal Medicine Hypertension Specialist
DX: I10 Essential (primary) hypertension (principal)
CPT/HCPCS: 36415; 80053; 82306; 83970; 84156

== ENCOUNTER 2021-12-16 10:02 | Outpatient (REF) | payer MEDICAID, SELFPAY ==
[2021-12-16 11:21] LABS: Prostate Specific Antigen 0.68 ng/mL (<0.05-4.0)
[2021-12-21 11:41] LABS: Testosterone, Total 536 ng/dL (250-1100)
== END 2021-12-16 10:03 | disposition home or self-care (01) ==
LOC: HO.10HDL 10:02
PROVIDERS: Visit Provider Urology
DX: Z12.5 Encounter for screening for malignant neoplasm of prostate (principal); E29.1 Testicular hypofunction
CPT/HCPCS: 36415; 84153; 84403; 85014

== ENCOUNTER → 2021-12-23 10:45 | Outpatient (BNVA) | payer MEDICAID, SELFPAY | PROVIDERS: PCP Internal Medicine; Visit Provider Urology | DX: E29.1 Testicular hypofunction (principal) | CPT/HCPCS: 99212 ==

== ENCOUNTER 2021-12-31 10:16 | Outpatient (REF) | payer MEDICAID, SELFPAY ==
[2021-12-31 11:02] LABS: MANUAL DIFF FLAG NO
[2021-12-31 11:07] LABS: Basophils Absolute Auto 0.1 X10*3/uL (0.0-0.2); Basophils Percent Auto 0.9 % (0-2); Eosinophils Absolute Auto 0.3 X10*3/uL (0.0-0.4); Eosinophils Percent Auto 4.2 % (0-4); Hematocrit 43.5 % (42.0-52.0); Hemoglobin 15.3 g/dl (14.0-18.0); Imm Gran Abs Auto 0.04 X10*3/uL (0.00-0.03); Imm Gran Pct Auto 0.6 % (0.0-0.4); Lymphocytes Absolute Auto 1.3 X10*3/uL (1.2-4.9); Lymphocytes Percent Auto 19.2 % (20-40); Mean Corpuscular HGB Conc 35.2 g/dl (31.0-36.0); Mean Corpuscular Hemoglobin 31.8 pg (27.0-33.0); Mean Corpuscular Volume 90.4 fL (80.0-98.0); Mean Platelet Volume 9.6 fL (9.4-12.4); Monocytes Absolute Auto 0.7 X10*3/uL (0.1-1.2); Monocytes Percent Auto 9.5 % (2-11); Neutrophils Absolute Auto 4.6 x10*3/uL (2.0-8.3); Neutrophils Percent Auto 65.6 % (45-73); Platelet Count 268 X10*3/uL (160-400); Red Blood Count 4.81 X10*6/uL (4.60-5.80); Red Cell Distribution Width 12.7 % (11.0-16.0)
[2021-12-31 11:22] LABS: Estimated Average Glucose 120 mg/dL; Hemoglobin A1c % 5.8 %
[2021-12-31 11:40] LABS: Alanine Aminotransferase 28 U/L (0-40); Albumin Level 4.2 g/dL (3.5-5.0); Alkaline Phosphatase 82 U/L (39-117); Anion Gap 16 (12-20); Aspartate Amino Transferase 25 U/L (5-37); Bilirubin Total 0.3 mg/dL (0.0-1.0); Blood Urea Nitrogen 10 mg/dL (9-16); Calcium 9.8 mg/dL (8.4-10.2); Carbon Dioxide 26 mmol/L (22-29); Chloride 103 mmol/L (96-108); Cholesterol 165 mg/dL; Estimated Glomerular Filt Rate > 60; Glucose Fasting 147 mg/dL (60-99); HDL Cholesterol 36 mg/dL; LDL Cholesterol Calculated 101 mg/dl; Potassium 4.2 mmol/L (3.3-5.1); Sodium 141 mmol/L (135-145); Total Protein 6.8 g/dL (6.5-8.0); Triglycerides 142 mg/dL
[2021-12-31 12:00] LABS: Vitamin D 25-OH Total 27.2 ng/mL (>30)
[2021-12-31 14:27] LABS: Creatinine Urine 216.18 mg/dL; Microalbum/Creatinine Ratio Ur 136.4 ug/mg cr
== END 2021-12-31 10:17 | disposition home or self-care (01) ==
LOC: HO.10HDL 10:16
PROVIDERS: Visit Provider Internal Medicine
DX: E78.5 Hyperlipidemia, unspecified (principal); J44.9 Chronic obstructive pulmonary disease, unspecified; E11.9 Type 2 diabetes mellitus without complications; N40.0 Benign prostatic hyperplasia without lower urinary tract symptoms; E55.9 Vitamin D deficiency, unspecified
CPT/HCPCS: 36415; 80053; 80061; 82043; 82306; 83036; 85025

== ENCOUNTER → 2022-01-13 10:33 | Outpatient (BNVA) | payer MEDICAID, SELFPAY | PROVIDERS: PCP Internal Medicine; Visit Provider Orthopaedic Surgery | DX: M72.0 Palmar fascial fibromatosis [Dupuytren] (principal); R20.0 Anesthesia of skin; R20.2 Paresthesia of skin; M62.542 Muscle wasting and atrophy, not elsewhere classified, left hand; M62.541 Muscle wasting and atrophy, not elsewhere classified, right hand | CPT/HCPCS: 99212 ==

== ENCOUNTER 2022-01-27 10:40 | Outpatient (REF) | payer MEDICAID, SELFPAY ==
--- NOTE | ~2022-01-27 | MM_ITS ---
EXAMINATION: BONE DENSITOMETRY CLINICAL INDICATION: Low back pain, fatigue. COMPARISON: None (current study represents initial baseline exam). TECHNIQUE: Using a [employer] DXA System (software version: 13.1) manufactured by [employer], dual-energy x-ray absorptiometry was performed of the lumbar spine and left hip. The images are of good technical quality. Summary results are attached. FINDINGS: AP SPINE L1-L4: BMD 1.152 g/cm2, Z-score -0.8, T-score -0.6, normal. LEFT FEMUR, NECK: BMD 0.903 g/cm2, Z-score -0.8, T-score -1.3, osteopenia. LEFT FEMUR, TOTAL: BMD 0.980 g/cm2, Z-score -0.7, T-score -0.8, normal. IDENTIFIED RISK FACTORS: Height loss, tobacco use (current smoker), secondary osteoporosis. HISTORY OF FRACTURE: None listed. MEDICATIONS: Vitamin D. MM/XR DEXA axial skeleton IMPRESSION: 1. DIAGNOSIS: Osteopenia based on the lowest T-score value of -1.3 in the femoral neck applying World Health Organization criteria. 2. 10-YEAR FRACTURE RISK PREDICTION, FRAX: Major osteoporotic fracture (clinical spine, forearm, hip or shoulder) 5.2%. Hip fracture 0.8%. 3. Treatment Recommendations: NOF guidelines recommend consideration for treatment in postmenopausal women and men age 50 and older presenting with the following: -A hip or vertebral (clinical or morphometric) fracture. -T-score less than or equal to -2.5 at the femoral neck or spine after appropriate evaluation to exclude secondary causes. -Low bone mass at the hip or spine and a 10-year fracture probability by FRAX of greater than or equal to 3% for hip fracture or greater than or equal to 20% for major osteoporotic fracture based on the [place] adapted WHO algorithm. 4. Other Recommendations: All treatment decisions require clinical judgment and consideration of individual patient factors, including patient preferences, comorbidities, previous drug use, risk factors not captured in the FRAX model (e.g. frailty, falls, vitamin D deficiency, increased bone turnover, interval significant decline in bone density) and possible under or overestimation of fracture risk by FRAX. Additional medical evaluation for secondary cause of low bone mineral density may be appropriate. FUTURE SCAN RECOMMENDATION: People with diagnosed cases of osteoporosis or at high risk for fracture should have regular bone mineral density tests. For patients eligible for Medicare, routine testing is allowed once every 2 years. The testing frequency can be increased to one year for patients who have rapidly progressing disease, those who are receiving or discontinuing medical therapy to restore bone mass, or have additional risk factors.
== END 2022-01-27 10:41 | disposition home or self-care (01) ==
LOC: HO.MAMMO 10:40
PROVIDERS: PCP Internal Medicine; Visit Provider Internal Medicine
DX: Z13.820 Encounter for screening for osteoporosis (principal); M81.0 Age-related osteoporosis without current pathological fracture; F17.200 Nicotine dependence, unspecified, uncomplicated; Z79.899 Other long term (current) drug therapy
CPT/HCPCS: 77080

== ENCOUNTER 2022-04-07 09:22 | Outpatient (REF) | payer MEDICAID, SELFPAY ==
[2022-04-07 10:29] LABS: MANUAL DIFF FLAG NO
[2022-04-07 10:38] LABS: Basophils Absolute Auto 0.1 X10*3/uL (0.0-0.2); Basophils Percent Auto 0.9 % (0-2); Eosinophils Absolute Auto 0.3 X10*3/uL (0.0-0.4); Eosinophils Percent Auto 4.5 % (0-4); Hematocrit 42.7 % (42.0-52.0); Hemoglobin 14.7 g/dl (14.0-18.0); Imm Gran Abs Auto 0.04 X10*3/uL (0.00-0.03); Imm Gran Pct Auto 0.6 % (0.0-0.4); Lymphocytes Absolute Auto 1.5 X10*3/uL (1.2-4.9); Lymphocytes Percent Auto 22.5 % (20-40); Mean Corpuscular HGB Conc 34.4 g/dl (31.0-36.0); Mean Corpuscular Hemoglobin 31.8 pg (27.0-33.0); Mean Corpuscular Volume 92.4 fL (80.0-98.0); Mean Platelet Volume 9.9 fL (9.4-12.4); Monocytes Absolute Auto 0.5 X10*3/uL (0.1-1.2); Monocytes Percent Auto 7.3 % (2-11); Neutrophils Absolute Auto 4.1 x10*3/uL (2.0-8.3); Neutrophils Percent Auto 64.2 % (45-73); Platelet Count 246 X10*3/uL (160-400); Red Blood Count 4.62 X10*6/uL (4.60-5.80); Red Cell Distribution Width 12.7 % (11.0-16.0); White Blood Count 6.4 X10*3/uL (4.8-10.8)
[2022-04-07 10:43] LABS: Estimated Average Glucose 140 mg/dL; Hemoglobin A1c % 6.5 %
[2022-04-07 12:03] LABS: Alanine Aminotransferase 16 U/L (0-40); Albumin Level 4.2 g/dL (3.5-5.0); Alkaline Phosphatase 97 U/L (39-117); Anion Gap 14 (12-20); Aspartate Amino Transferase 15 U/L (5-37); Bilirubin Total 0.2 mg/dL (0.0-1.0); Blood Urea Nitrogen 18 mg/dL (9-16); Calcium 9.6 mg/dL (8.4-10.2); Carbon Dioxide 24 mmol/L (22-29); Chloride 104 mmol/L (96-108); Estimated Glomerular Filt Rate > 60; Glucose Random 240 mg/dL (60-115); Potassium 4.4 mmol/L (3.3-5.1); Sodium 138 mmol/L (135-145); Total Protein 6.5 g/dL (6.5-8.0)
== END 2022-04-07 09:23 | disposition home or self-care (01) ==
LOC: HO.10HDL 09:22
PROVIDERS: Visit Provider Internal Medicine
DX: E11.9 Type 2 diabetes mellitus without complications (principal); J44.9 Chronic obstructive pulmonary disease, unspecified; I10 Essential (primary) hypertension
CPT/HCPCS: 36415; 80053; 83036; 85025

== ENCOUNTER 2022-05-19 13:07 | Outpatient (REF) | payer MEDICAID, SELFPAY ==
[2022-05-19 14:43] LABS: Hematocrit 47.5 % (42.0-52.0)
[2022-05-19 15:10] LABS: Creatinine Urine 173.42 mg/dL; Protein/Creatinine Ratio, Ur 0.28 (<0.2); Total Protein Urine Random 48 mg/dL (<12)
[2022-05-19 15:40] LABS: Vitamin D 25-OH Total 23.2 ng/mL (>30)
[2022-05-19 15:41] LABS: Prostate Specific Antigen 0.86 ng/mL (<0.05-4.0)
[2022-05-19 16:11] LABS: Anion Gap 21 (12-20); Blood Urea Nitrogen 10 mg/dL (9-16); Calcium 10.2 mg/dL (8.4-10.2); Carbon Dioxide 21 mmol/L (22-29); Chloride 100 mmol/L (96-108); Estimated Glomerular Filt Rate > 60; Glucose Random 200 mg/dL (60-115); Potassium 4.8 mmol/L (3.3-5.1); Sodium 137 mmol/L (135-145)
[2022-05-20 12:39] LABS: Calcium (PTHI) 10.2 mg/dL (8.6-10.3); PTHI 10 pg/mL (16-77)
[2022-05-25 12:24] LABS: Testosterone, Total 517 ng/dL (250-1100)
== END 2022-05-19 13:08 | disposition home or self-care (01) ==
LOC: HO.LAB 13:07
PROVIDERS: Urology; PCP Internal Medicine; Visit Provider Internal Medicine Hypertension Specialist
DX: E11.22 Type 2 diabetes mellitus with diabetic chronic kidney disease (principal); N18.31 Chronic kidney disease, stage 3a; E29.1 Testicular hypofunction
CPT/HCPCS: 36415; 80048; 82306; 83970; 84153; 84156; 84403; 85014

== ENCOUNTER 2022-06-18 10:58 | Outpatient (REF) | payer MEDICAID, SELFPAY ==
[2022-06-18 13:53] LABS: Hematocrit 46.8 % (42.0-52.0)
[2022-06-18 14:34] LABS: Prostate Specific Antigen 0.88 ng/mL (<0.05-4.0)
[2022-06-25 14:59] LABS: Testosterone, Total 530 ng/dL (250-1100)
== END 2022-06-18 10:59 | disposition home or self-care (01) ==
LOC: HO.10HDL 10:58
PROVIDERS: Visit Provider Urology
DX: E29.1 Testicular hypofunction (principal)
CPT/HCPCS: 36415; 84153; 84403; 85014

== ENCOUNTER → 2022-07-01 13:37 | Outpatient (BNVA) | payer MEDICAID, SELFPAY | PROVIDERS: PCP Internal Medicine; Visit Provider Urology ==

== ENCOUNTER 2022-09-21 07:56 | Outpatient (REF) | payer MEDICAID, SELFPAY ==
[2022-09-21 11:05] LABS: MANUAL DIFF FLAG NO
[2022-09-21 11:09] LABS: Basophils Absolute Auto 0.1 X10*3/uL (0.0-0.2); Basophils Percent Auto 0.6 % (0-2); Eosinophils Absolute Auto 0.2 X10*3/uL (0.0-0.4); Hematocrit 48.6 % (42.0-52.0); Hemoglobin 16.7 g/dl (14.0-18.0); Imm Gran Abs Auto 0.05 X10*3/uL (0.00-0.03); Imm Gran Pct Auto 0.6 % (0.0-0.4); Lymphocytes Absolute Auto 2.3 X10*3/uL (1.2-4.9); Lymphocytes Percent Auto 27.9 % (20-40); Mean Corpuscular HGB Conc 34.4 g/dl (31.0-36.0); Mean Corpuscular Volume 93.1 fL (80.0-98.0); Mean Platelet Volume 9.9 fL (9.4-12.4); Monocytes Absolute Auto 0.7 X10*3/uL (0.1-1.2); Monocytes Percent Auto 8.1 % (2-11); Neutrophils Absolute Auto 4.8 x10*3/uL (2.0-8.3); Neutrophils Percent Auto 59.8 % (45-73); Platelet Count 243 X10*3/uL (160-400); Red Blood Count 5.22 X10*6/uL (4.60-5.80); Red Cell Distribution Width 12.6 % (11.0-16.0); White Blood Count 8.1 X10*3/uL (4.8-10.8)
[2022-09-21 11:31] LABS: Alanine Aminotransferase 19 U/L (0-40); Albumin Level 4.2 g/dL (3.5-5.0); Alkaline Phosphatase 93 U/L (39-117); Anion Gap 15 (12-20); Aspartate Amino Transferase 16 U/L (5-37); Bilirubin Total 0.6 mg/dL (0.0-1.0); Blood Urea Nitrogen 20 mg/dL (9-16); Calcium 9.7 mg/dL (8.4-10.2); Carbon Dioxide 24 mmol/L (22-29); Chloride 107 mmol/L (96-108); Cholesterol 162 mg/dL; Estimated Glomerular Filt Rate > 60; Glucose Random 156 mg/dL (60-115); HDL Cholesterol 42 mg/dL; LDL Cholesterol Calculated 95 mg/dl; Potassium 4.7 mmol/L (3.3-5.1); Sodium 141 mmol/L (135-145); Triglycerides 125 mg/dL
[2022-09-21 11:40] LABS: Estimated Average Glucose 146 mg/dL; Hemoglobin A1c % 6.7 %
[2022-09-21 11:46] LABS: Prostate Specific Antigen 0.79 ng/mL (<0.05-4.0)
[2022-09-21 12:04] LABS: Creatinine Urine 178.35 mg/dL; Microalbum/Creatinine Ratio Ur 85.7 ug/mg cr
== END 2022-09-21 07:57 | disposition home or self-care (01) ==
LOC: HO.10HDL 07:56
PROVIDERS: Visit Provider Internal Medicine
DX: Z12.5 Encounter for screening for malignant neoplasm of prostate (principal); E11.9 Type 2 diabetes mellitus without complications; J44.9 Chronic obstructive pulmonary disease, unspecified
CPT/HCPCS: 36415; 80053; 80061; 82043; 83036; 84153; 85025

== ENCOUNTER → 2022-10-07 08:46 | Outpatient (BNVA) | payer MEDICAID, SELFPAY | PROVIDERS: PCP Internal Medicine; Visit Provider Orthopaedic Surgery | DX: R20.2 Paresthesia of skin (principal); R20.0 Anesthesia of skin; M62.541 Muscle wasting and atrophy, not elsewhere classified, right hand; M62.542 Muscle wasting and atrophy, not elsewhere classified, left hand; M75.41 Impingement syndrome of right shoulder; E11.9 Type 2 diabetes mellitus without complications; Z98.1 Arthrodesis status | CPT/HCPCS: 20610; 99212; J1100 ==

== ENCOUNTER 2022-11-04 08:08 | Emergency (ER) | payer MEDICAID, SELFPAY ==
[2022-11-04 08:12] VITALS: BP 210/100; PULSE 97; RESP 18; TEMP 36.1; O2SAT 97; BMI 29.5
--- NOTE | 2022-11-04 09:33 | ED.EXTPRO ---
HPI - Extremity Problem General Chief complaint: Back Pain/Injury Stated complaint: muscle pain r shoulder down arm Time Seen by Provider: 11/04/22 08:29 Source: patient Mode of arrival: ambulatory Limitations: no limitations History of Present Illness HPI Narrative: 57-year-old male who presents emergency department for evaluation of right shoulder blade pain and right arm pain. The patient states that he sees our orthopedic doctor, Dr. Damon for periscapular pain. He states that he 1st had this pain in August of 2021. He had an injection by Dr. Damon which caused the pain to go away. He states approximately 3 months ago the pain came back. Approximately 3 weeks ago was able to see Dr. Damon and had in injection which did not improve the pain. He states that over the last several days the pain in his right scapula is gotten worse. He states the pain is now radiating down his right arm to his right hand causing numbness and tingling of his fingers. He denies any weakness of his right arm, he is able to move his right shoulder and right arm without any difficulty. He denied systemic symptoms such as fever, chills, nausea, vomiting, weakness or fatigue. He states he has been having difficulty sleeping at night secondary to the severity of his pain. Related Data Home Medications Medication Instructions Recorded Confirmed albuterol sulfate 90 mcg/actuation 2 puff PO Q4H PRN 06/17/21 07/01/22 aerosol inhaler (ProAir HFA) atorvastatin 10 mg tablet 10 mg PO DAILY 06/17/21 07/01/22 blood sugar diagnostic (FreeStyle #10 ea 06/17/21 07/01/22 Lite Strips) dulaglutide 1.5 mg/0.5 mL mg subcut QWEEK 06/17/21 07/01/22 subcutaneous pen injector ([facility]) fluticasone propionate 50 1 spray intranasal BID PRN 06/17/21 07/01/22 mcg/actuation nasal spray,suspension gabapentin 100 mg capsule 200 mg PO TID 06/17/21 07/01/22 gabapentin 300 mg capsule 300 mg PO BEDTIME 06/17/21 07/01/22 glipizide 5 mg tablet, extended 10 mg PO BID 06/17/21 07/01/22 release 24 hr lisinopril 10 mg tablet 10 mg PO DAILY 06/17/21 07/01/22 metformin 1,000 mg tablet 1,000 mg PO BID 06/17/21 07/01/22 syringe with needle 1 mL 25 gauge #1 ea 06/17/21 07/01/22 x 5/8 (UltiCare) fluoride (sodium) 1.1 % dental gel PO BEDTIME 12/22/21 07/01/22 (DentaGel) Previous Rx's Medication Instructions Recorded insulin syringe-needle U-100 1 mL #30 ea 12/12/20 25 gauge x 5/8 (BD Insulin Syringe) needle (disp) 22 G 22 gauge x 1 #50 ea 12/12/20 1/2 (BD Regular Bevel Sutton) tamsulosin 0.4 mg capsule 0.4 mg PO DAILY #90 caps 12/23/21 testosterone cypionate 200 mg/mL 80 mg (0.4 mL) subcut QWEEK 4 07/01/22 intramuscular oil weeks #2 mL (Depo-Testosterone) cyclobenzaprine 10 mg tablet 10 mg PO TID PRN muscle pain or 11/04/22 spasm #20 tabs oxycodone 5 mg tablet 5 mg PO Q4H PRN pain #10 tabs 11/04/22 prednisone 20 mg tablet 60 mg PO DAILY 5 days #15 tabs 11/04/22 Allergies Allergy/AdvReac Type Severity Reaction Status Date / Time morphine [MORPHINE] Allergy Unknown NAUSEA, Verified 11/04/22 08:15 nausea and vomiting Review of Systems Review of Systems: Yes all other systems are reviewed and are negative PMFSH Past Medical History Medical History Elevated PSA Enlarged prostate with lower urinary tract symptoms (LUTS) Erectile dysfunction due to diseases classified elsewhere Other obstructive and reflux uropathy Peyronie's disease Rotator cuff impingement syndrome of left shoulder Type II diabetes mellitus Surgical History History of surgery Family History Family History Father No problems noted. Mother No problems noted. Social History Social History Patient Tobacco Use Status: Current everyday Tobacco user Cigarette Packs Per Day: 5 Advance Directives: No Current occupational status: retired Current occupation: right handed Physical Exam Vital Signs: Vital Signs: Last Vital Signs Temp 97.0 F 11/04/22 08:12 Pulse 97 11/04/22 08:12 Resp 18 11/04/22 08:12 BP 210/100 H 11/04/22 08:12 Pulse Ox 97 11/04/22 08:12 O2 Del Method Room Air 11/04/22 08:12 BMI result Body Mass Index 29.5 Patient is hypertensive but this is most likely caused by his pain General: Awake, alert, male patient, pleasant, cooperative in no distress HEENT: Head is normal cephalic atraumatic, pupils were equal round reactive light, sclera contact however normal, mouth revealed moist membranes Neck: No C-spine tenderness, no tenderness palpation of the trapezius muscles or sternocleidomastoid muscle, he has full range of motion of neck without any difficulty, does not change the pain Extremities: Patient does have tenderness palpation of his right periscapular muscles mainly along the medial border, this does reproduce his pain. Patient has full range of motion of his right shoulder, elbow and wrist both passively and actively. He does have increased pain with active movement against resistance. His extremities neurovascular intact. Medical Decision Making Medical Decision Making MDM Narrative: 57-year-old male who presents emergency department for evaluation of right scapular pain with pain radiating down his right arm to his hand with numbness in his right hand with no weakness. He has had no systemic symptoms. The pain is been present for 3 months and had a similar pain in August of 2022 which was improved after injection. Patient did see our orthopedic doctor, Dr. Damon on 10/07/2022. I did review this note. Patient was injected with Decadron 1 mL and 3 mL of 1% lidocaine and 3 mm 0.25% Marcaine. Patient states this injected did not improve his pain any now has radicular pain going down the right arm. Patient's examination did reveal tenderness palpation of the muscles around the right scapula with full range of motion passively and actively of his right shoulder, elbow and wrist. At this time, I believe that the patient has radicular pain most likely secondary to inflammation of the periscapular muscles and I did discuss this with the patient. Patient was advised to take Tylenol 500 mg pills, 2 pills every 6 hours as needed for pain. He was prescribed prednisone 60 mg daily for 5 days to see if this improves his radicular pain. For pain not relieved by these 2 medications was also prescribed oxycodone 5 mg every 4-6 hours as needed for pain. Patient was also started on Flexeril 10 mg 3 times a day as needed for pain or spasm. He was given printed and verbal instructions and discharged home Differential Diagnosis Differential diagnosis includes but is not limited to periscapular muscular inflammation, cervical radiculopathy, musculoskeletal pain External Record Review External record reviewed: Office record (Orthopedic office record from 10/07/2022) Prescription Management I considered prescription management with: Pain Medication Chronic Conditions Patient?s care impacted by: Diabetes Discharge Plan Discharge Clinical Impression: Pain of right scapula, Arm pain, right Patient Disposition: Home, Self-Care Additional Instructions: On your examination you do have tenderness with palpation of the muscles around your right shoulder blade (his scapula). The strength and range of motion of your right arm is normal. The pain that is traveling down your right arm is most likely caused by inflammation of the nerves around the scapula and shoulder that are now inflamed this is called radiculopathy or pain that radiates down your arm. Apply ice for 15 minutes weight approximately 30 minutes then use a heating pad on low for 15 minutes, do this 4 to 6 times a day over the next 2-3 days to see if this improves her pain. Take Flexeril (cyclobenzaprine) 10 mg pills, 1 pill every 6-8 hours as needed for pain or spasm. This medication will make you sleepy. Do not drive or work while taking this medication. Take prednisone 20 mg pills, 3 pills once a day for 5 days. While you are taking prednisone, do not take any NSAIDs (Motrin, Advil, ibuprofen, Aleve, naproxen). Take Tylenol (acetaminophen) 500 mg pills, 2 pills every 6 hours as needed for pain. For pain not relieved by ibuprofen or Tylenol take oxycodone 5 mg pills, 1 pill every 4 hours as needed for pain. Do not drive or work while taking this medication since they can cause sleepiness. Oxycodone is a narcotic medication that can be addicting. If you are concerned about addiction you can ask the pharmacist for less pills or do not get this prescription filled. Follow-up with your doctor in 2 days. Please return to the emergency department if your symptoms get worse or if you develop any symptoms that are concerning to you. Prescriptions: New cyclobenzaprine 10 mg tablet 10 mg PO TID PRN (Reason: muscle pain or spasm) Qty: 20 0RF prednisone 20 mg tablet 60 mg PO DAILY 5 Days Qty: 15 0RF oxycodone 5 mg tablet 5 mg PO Q4H PRN (Reason: pain) Qty: 10 0RF Rx Instructions: Patient may request partial fill; Partial Fill upon patient request. No Action tamsulosin 0.4 mg capsule 0.4 mg PO DAILY Qty: 90 3RF (DME) BD Insulin Syringe 1 mL 25 gauge x 5/8 syringe See Rx Instructions .MEDSUPPLY Qty: 30 0RF Rx Instructions: As directed (DME) BD Regular Bevel Sutton 22 gauge x 1 1/2 needle See Rx Instructions .MEDSUPPLY Qty: 50 0RF Rx Instructions: As directed albuterol sulfate [ProAir HFA] 90 mcg/actuation HFA aerosol inhaler 2 puff PO Q4H PRN glipizide 5 mg tablet extended release 24hr 10 mg PO BID atorvastatin 10 mg tablet 10 mg PO DAILY (DME) FreeStyle Lite Strips Strip See Rx Instructions Not Applicable TID Qty: 10 Rx Instructions: As directed lisinopril 10 mg tablet 10 mg PO DAILY metformin 1,000 mg tablet 1,000 mg PO BID gabapentin 300 mg capsule 300 mg PO BEDTIME Trulicity 1.5 mg/0.5 mL pen injector subcut QWEEK fluticasone propionate 50 mcg/actuation spray,suspension 1 spray intranasal BID PRN gabapentin 100 mg capsule 200 mg PO TID (DME) UltiCare 1 mL 25 gauge x 5/8 syringe See Rx Instructions .ROUTE DIRECTED Qty: 1 Rx Instructions: As directed fluoride (sodium) [DentaGel] 1.1 % gel PO BEDTIME testosterone cypionate [Depo-Testosterone] 200 mg/mL oil 80 mg subcut QWEEK 28 Days Qty: 2 5RF
[2022-11-04] MEDS: oxyCODONE HCl Immed Release 5 MG TABLET PO (09:38)
[2022-11-04] MEDS: predniSONE 20 MG TABLET 60 MG PO (09:39)
[2022-11-04 09:51] VITALS: BP 152/93; PULSE 77; RESP 15; TEMP 36.7; O2SAT 95
== END 2022-11-04 09:56 | disposition home or self-care (01) ==
PROVIDERS: Emergency Provider Emergency Medicine Emergency Medical Services; PCP Internal Medicine
DX: M79.601 Pain in right arm (principal); E11.9 Type 2 diabetes mellitus without complications; F17.210 Nicotine dependence, cigarettes, uncomplicated; Z71.6 Tobacco abuse counseling; Z79.899 Other long term (current) drug therapy; Z79.4 Long term (current) use of insulin
CPT/HCPCS: 99283; 99284

== ENCOUNTER 2022-11-17 10:20 | Outpatient (REF) | payer MEDICAID, SELFPAY ==
[2022-11-17 13:47] LABS: Anion Gap 14 (12-20); Blood Urea Nitrogen 12 mg/dL (9-16); Calcium 9.5 mg/dL (8.4-10.2); Carbon Dioxide 23 mmol/L (22-29); Chloride 108 mmol/L (96-108); Estimated Glomerular Filt Rate > 60; Glucose Random 178 mg/dL (60-115); Sodium 140 mmol/L (135-145)
[2022-11-19 19:38] LABS: Calcium (PTHI) 9.4 mg/dL (8.6-10.3); PTHI 18 pg/mL (16-77)
== END 2022-11-17 10:21 | disposition home or self-care (01) ==
LOC: HO.10HDL 10:20
PROVIDERS: Visit Provider Internal Medicine Hypertension Specialist
DX: E11.29 Type 2 diabetes mellitus with other diabetic kidney complication (principal); M47.12 Other spondylosis with myelopathy, cervical region; M47.22 Other spondylosis with radiculopathy, cervical region
CPT/HCPCS: 36415; 80048; 83970; 99202

== ENCOUNTER 2022-11-17 10:29 | Outpatient (AMB) | payer MEDICAID, SELFPAY ==
--- NOTE | 2022-11-17 11:11 | HO.SPINEOV ---
Intake Intake Visit Reasons: pain neck,back and arms Intake Note: Mr. Bowman is here today c/o neck, back and bilateral arm pain. MRI done @ [facility]/brought disc. 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 HPI: This 57-year-old male had an anterior diskectomy and fusion done of C 4-5 and C6-C7 in 2007. According to the patient, he has had trouble walking which has progressed over time. He uses a cane otherwise falls. His main complaint today is bilateral arm pain with the right side is more affected than the left side for more than 1 year. The pain radiates from the neck down into his biceps to the dorsum of his lower arm into the 4th and 5th digit. Again pain is worse on the right and the numbness is worse on the left. He also notices that he frequently drops objects since 4 months. He noticed shaking of his left foot during drying off after showering. He had physical therapy in the past that only makes his pain in the neck and arm worse. The following conservative treatment options were tried without success antiinflammatories, tylenol, physician physical therapy, cortisone shots PMH: COPD, diabetes type 2 with the latest A1c of 6.5, hypercholesteremia, hypertension Social history: , smokes half pack a day Medications: Albuterol, atorvastatin, cyclobenzaprine, gabapentin, glipizide, lisinopril, metformin, testosterone Allergies: Morphine gives him nausea and vomiting Physical Exam: Pleasant male. He is very unsteady on his feet. Romberg is positive. On inspection there is atrophy of the interosseous muscles and thenar muscles, predominantly of the left hand. Motor exam shows a grade 3/5 weakness of the wrist extensors on the right and a grade 4/5 on the left; grade 4-5 weakness of the bilateral wrist flexors; grade 3/5 weakness of the interossei bilaterally. There is numbness of the digits 4 and 5 on the left side. He has hyperreflexia with the left side higher than the right side and he displays pathological reflexes with bilateral Olson's and Babinski's. Radiological Studies: MRI done at [facility] on 01/17/2022 show status post anterior diskectomy and fusion C4-5 and C6-7. More importantly, it shows severe degenerative disc disease C5-C6 causing moderate to severe spinal stenosis and a grade 1-2 anterolisthesis C7-T1 causing bilateral C8 foraminal stenosis. Today's x-rays were insufficient to determine if there is instability at C7-T1. Impression/Plan: This patient is suffering from progressive cervical myelopathy and a bilateral C8 radiculopathy. I suspect that the myelopathic symptoms are coming from the C5-C6 region with spinal cord compression and and that the C8 radiculopathy is associated with cervical spondylolisthesis C7-T1 causing bilateral severe C8 foraminal stenosis. I offered him a fusion of the C5-6 level and to C7-T1 level. However I need to get a better impression if there is instability at the C7-T1 level. Unfortunately, the x-rays today were of insufficient quality. The patient had to leave and will return for follow-up visit where we will repeat those x-rays. Thank you for allowing me to participate in your patients care. total time spent was 50 minutes in counseling ,coordination of plan, personal review of imaging, surgical decision making and subsequent plan Bryson Sawant MD, PhD Spine Fellowship Trained Neurosurgeon Director, [facility] Orders: Orders XR cervical spine 4V Today M47.12 - Other spondylosis with myelopathy, cervical region, M47.22 - Other spondylosis with radiculopathy, cervical region Coding Level of Care Code New Pt Level 4 (32057) Diagnoses Cervical spondylosis with myelopathy and radiculopathy M47.12; M47.22
== END 2022-11-17 11:56 | disposition home or self-care (01) ==
PROVIDERS: PCP Internal Medicine; Referring Provider Orthopaedic Surgery; Visit Provider Neurological Surgery
DX: M47.12 Other spondylosis with myelopathy, cervical region (principal); M47.22 Other spondylosis with radiculopathy, cervical region
CPT/HCPCS: 99204

== ENCOUNTER 2022-11-17 11:29 | Outpatient (REF) | payer MEDICAID, SELFPAY ==
--- NOTE | ~2022-11-17 | XR_ITS ---
EXAMINATION: XR cervical spine 4V CLINICAL INFORMATION: fusion COMPARISON: Cervical spine radiographs 09/12/2011 TECHNIQUE: 5 views of the cervical spine were obtained. FINDINGS: The cervical spine is visualized to the level of C5-C6 on the lateral view. Status post C4-C5 and C6-C7 anterior cervical discectomy and spinal fusion. No evidence of hardware fracture or complication. Alignment is maintained. There is osseous fusion noted across C4-C5. C6-C7 is suboptimally evaluated. Vertebral body heights are otherwise maintained. No instability on flexion extension views. Advanced degenerative disc disease at C5-C6, manifested by near complete loss of disc space height with multilevel facet arthropathy.. No prevertebral soft tissue swelling. Calcifications in the soft tissues of the bilateral neck may reflect carotid calcifications. XR/XR cervical spine 4V IMPRESSION: 1. Status post C4-C5 and C6-C7 anterior cervical discectomy and spinal fusion. No evidence of hardware failure or complication. 2. Advanced spondylosis of the cervical spine, as above detailed. 3. Calcifications in the soft tissues of the bilateral neck may reflect carotid calcifications, which can be better evaluated with dedicated carotid ultrasound if warranted.
== END 2022-11-17 11:30 | disposition home or self-care (01) ==
LOC: HO.HOSX 11:29
PROVIDERS: Visit Provider Neurological Surgery
DX: M47.12 Other spondylosis with myelopathy, cervical region (principal); M47.22 Other spondylosis with radiculopathy, cervical region
CPT/HCPCS: 72050

== ENCOUNTER 2022-12-01 11:01 | Outpatient (REF) | payer MEDICAID, SELFPAY ==
--- NOTE | ~2022-12-01 | XR_ITS ---
EXAMINATION: XR CERVICAL SPINE CLINICAL INFORMATION: Spondylosis with myelopathy cervical. COMPARISON: 11/17/2022 TECHNIQUE: 4 views of the cervical spine were obtained including flexion and extension (although the films are not labeled flexion or extension). FINDINGS: Again seen are postoperative changes with ACDF at C4-C5 and C6-C7. Hardware appears intact. No soft tissue swelling, bony destructive lesions or subluxations are seen. There is bony fusion of the C4 and C5 vertebral bodies. The C6 and C7 vertebral bodies are suboptimally evaluated. Carotid artery calcification is seen. No instability is seen with flexion or extension. XR/XR cervical spine 4V IMPRESSION: Stable postoperative changes with ACDF. No evidence of instability with flexion or extension. Carotid artery calcification.
== END 2022-12-01 11:02 | disposition home or self-care (01) ==
LOC: HO.HOSX 11:01
PROVIDERS: Visit Provider Neurological Surgery
DX: M47.12 Other spondylosis with myelopathy, cervical region (principal); M47.22 Other spondylosis with radiculopathy, cervical region
CPT/HCPCS: 72050; 99212

== ENCOUNTER 2022-12-01 11:13 | Outpatient (AMB) | payer MEDICAID, SELFPAY ==
--- NOTE | 2022-12-01 11:42 | A.SPINEOV_ITS ---
Intake Intake Visit Reasons: follow up with xrays Intake Note: Mr. Bowman is here today for a follow up and x-rays. 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 As she knows suffering from cervical myelopathy and bilateral cervical radiculopathy in C8 distribution for which he will need a C5-C6 anterior diskectomy fusion to address the cervical myelopathy and a C7-T1 anterior diskectomy and fusion to address the bilateral C8 radiculopathy due to foraminal stenosis. Unfortunately, x-rays cannot provide me the information any preoperatively to see if there is a spondylolisthesis at C7-T1 and to see if the previous C6-7 anterior plate is crossing the C7-T1 disc space. There for, I would like to order a CT of the cervical spine for my preoperative planning. The prep I will see the patient after the CT is done to make final surgical plan. Bryson Sawant MD, PhD Spine Fellowship Trained Neurosurgeon Director, [facility] Orders: Orders XR cervical spine 4V Today M47.12 - Other spondylosis with myelopathy, cervical region, M47.22 - Other spondylosis with radiculopathy, cervical region CT cervical spine wo IV con Today M47.12 - Other spondylosis with myelopathy, cervical region, M47.22 - Other spondylosis with radiculopathy, cervical region Coding Level of Care Code Est Pt Level 2 (00742) Diagnoses Cervical spondylosis with myelopathy and radiculopathy M47.12; M47.22
== END 2022-12-01 11:59 | disposition home or self-care (01) ==
PROVIDERS: PCP Internal Medicine; Visit Provider Neurological Surgery
DX: M47.12 Other spondylosis with myelopathy, cervical region (principal); M47.22 Other spondylosis with radiculopathy, cervical region
CPT/HCPCS: 99212

== ENCOUNTER 2022-12-02 13:51 | Outpatient (REF) | payer MEDICAID, SELFPAY | END 2022-12-02 13:52 | disposition home or self-care (01) | LOC: HO.LAB 13:51 | PROVIDERS: PCP Internal Medicine; Visit Provider Internal Medicine Hypertension Specialist | DX: Z13.89 Encounter for screening for other disorder (principal) ==

== ENCOUNTER 2022-12-22 11:52 | Outpatient (REF) | payer MEDICAID, SELFPAY ==
[2022-12-22 13:23] LABS: Hematocrit 46.9 % (42.0-52.0); Hemoglobin 16.1 g/dl (14.0-18.0); Mean Corpuscular HGB Conc 34.3 g/dl (31.0-36.0); Mean Corpuscular Hemoglobin 32.7 pg (27.0-33.0); Mean Corpuscular Volume 95.3 fL (80.0-98.0); Mean Platelet Volume 9.9 fL (9.4-12.4); Platelet Count 283 X10*3/uL (160-400); Red Blood Count 4.92 X10*6/uL (4.60-5.80); Red Cell Distribution Width 13.2 % (11.0-16.0); White Blood Count 8.4 X10*3/uL (4.8-10.8)
[2022-12-22 13:58] LABS: PSA,Total (Free>4and<10) 1.34 ng/mL (0.00-4.00)
[2022-12-28 16:29] LABS: Testosterone, Free 183.1 pg/mL (35.0-155.0); Testosterone, Total 825 ng/dL (250-1100)
== END 2022-12-22 11:53 | disposition home or self-care (01) ==
LOC: HO.10HDL 11:52
PROVIDERS: Visit Provider Urology
DX: Z12.5 Encounter for screening for malignant neoplasm of prostate (principal); E29.1 Testicular hypofunction
CPT/HCPCS: 36415; 84153; 84402; 84403; 85027

== ENCOUNTER 2022-12-29 09:06 | Outpatient (REF) | payer MEDICAID, SELFPAY ==
--- NOTE | ~2022-12-29 | CT_ITS ---
CT CERVICAL SPINE WITHOUT CONTRAST HISTORY: 57 years old Male, myelopathy TECHNIQUE: CT images of the cervical spine were acquired without intravenous contrast. This CT examination was performed using dose optimization techniques as appropriate, variously including the following: *Automated exposure control *Adjustment of mA and/or kV according to patient size (this includes techniques or standardized protocols for targeted exams where dose is matched to indication/reason for exam; i.e. extremities or head) *Use of iterative reconstruction technique DLP: 505 mGy-cm COMPARISON: None available. FINDINGS: Postsurgical changes following C4-C5 ACDF and C6-C7 ACDF with solid interbody arthrodesis at these levels. The hardware appears intact without periprosthetic lucency. Solid osseous fusion across the bilateral C4-C5 facet joints and partial osseous fusion across the right but not left C6-C7 facet joints. The craniocervical junction is intact. Degenerative changes across the anterior atlantodental interval with joint space narrowing, osseous spurring, and ligamentous mineralization. Faint mineralization inferior to the anterior arch of C1 in the region of the longus colli tendon insertions suggestive of hydroxyapatite deposition however without prevertebral inflammation to suggest acute longus colli calcific tendinitis. Straightening of the cervical lordosis. Slight retrolisthesis at C5-C6 and slight anterolisthesis at C7-T1. Vertebral body heights are normal without acute compression fracture. No suspicious osseous lesion. Severe C5-C6 disc height loss with subchondral sclerosis and severe C7-T1 disc height loss with vacuum disc phenomenon. There are multilevel degenerative changes with level by level detail as follows: C2-C3: Annular disc bulge with minor uncovertebral spurring and bilateral facet arthrosis, more pronounced and severe on the left. No spinal canal stenosis. Severe left without significant right neural foraminal stenosis. C3-C4: Disc osteophyte complex with central disc protrusion, bilateral uncovertebral spurring and bilateral facet arthrosis, more pronounced and severe on the right. Mild spinal canal stenosis with encroachment upon the ventral cord. Severe right and moderate to severe left neural foraminal stenosis. C4-C5: Post ACDF changes with streak artifact compromising diagnostic assessment of the spinal canal. Right paracentral osseous ridging. Fusion across the bilateral facet joints on a background of arthropathy. No bony spinal canal stenosis. Mild bilateral neural foraminal narrowing. C5-C6: Disc osteophyte complex with right greater than left uncovertebral joint hypertrophy and mild bilateral facet arthrosis. Apparent moderate to severe spinal canal and severe bilateral neural foraminal stenosis. C6-C7: Post ACDF changes with streak artifact compromising diagnostic assessment of the spinal canal. Right paracentral osseous ridging with right greater than left uncovertebral joint hypertrophy and mild bilateral facet arthrosis with partial osseous fusion on the right. Mild right eccentric spinal canal, severe right, and moderate left neural foraminal stenosis. C7-T1: Streak artifact compromises diagnostic assessment of the spinal canal. Uncovered posterior disc material, osteophytic ridging, uncovertebral joint hypertrophy and advanced bilateral facet arthrosis. No bony spinal canal stenosis. Apparent moderate left greater than right right bony neural foraminal stenosis. No significant abnormalities of the paraspinal tissues. Visualized lung apices are clear. The visualized intracranial structures are normal. Calcified right pelvic pain tonsillolith. There is asymmetric somewhat plaque-like soft tissue fullness and slight nodularity of the left true vocal cord and left subglottic larynx that should be correlated with direct inspection. Calcific atherosclerotic disease of the bilateral carotid bifurcations. CT/CT cervical spine wo IV con IMPRESSION: 1. Postsurgical changes following C4-C5 ACDF and C6-C7 ACDF with solid interbody arthrodesis at these levels. Intact hardware. Solid osseous fusion across the bilateral C4-C5 facet joints and partial osseous fusion across the right but not left C6-C7 facet joints. 2. Multilevel cervical spondylosis with apparent moderate to severe spinal canal stenosis at C5-C6. Multilevel severe neural foraminal stenosis as above. 3. Faint mineralization inferior to the anterior arch of C1 in the region of the longus colli tendon insertions suggestive of hydroxyapatite deposition however without prevertebral inflammation to suggest acute longus colli calcific tendinitis. 4. There is asymmetric somewhat plaque-like soft tissue fullness and slight nodularity of the left true vocal cord and left subglottic larynx that should be correlated with direct inspection. Findings to be called to the ordering clinician by a [place] Delinquent [employer]or.
== END 2022-12-29 09:07 | disposition home or self-care (01) ==
LOC: HO.CT 09:06
PROVIDERS: PCP Internal Medicine; Visit Provider Neurological Surgery
DX: M47.12 Other spondylosis with myelopathy, cervical region (principal); M47.22 Other spondylosis with radiculopathy, cervical region
CPT/HCPCS: 72125; 99212

== ENCOUNTER 2022-12-29 09:53 | Outpatient (AMB) | payer MEDICAID, SELFPAY ==
--- NOTE | 2022-12-29 10:10 | A.SPINEOV_ITS ---
Intake Intake Visit Reasons: ct follow up Intake Note: Mr Bowman is here today to discuss the results of his CT Scan. Can Tender Required: No Allergies morphine [MORPHINE] Allergy (Unknown, Verified 11/04/22 08:15) NAUSEA, nausea and vomiting Assessment & Plan Assessment & Plan (1) Cervical spondylosis with myelopathy and radiculopathy: Code(s): M47.12 - Other spondylosis with myelopathy, cervical region; M47.22 - Other spondylosis with radiculopathy, cervical region Plan Dear colleague, On 01/06/2023, I saw Rao Bowman to discuss the CT cervical spine findings. As you know suffering from cervical myelopathy and bilateral C8 cervical radiculopathy. For detailed description I refer to my previous notes. I want a CT of the cervical spine to make sure that the previous placed C6-7 anterior plate was not crossing the C7-T1 disc space. We reviewed the CT and indeed the plate is not crossing the disc space and therefore I will stay with the plan of doing an anterior diskectomy fusion C5-C6 and C7-T1. In the event that I cannot reach to C7-T1 space from anteriorly, then I will do a posterior C8 foraminotomy. The procedure, complications and expected postoperative course was discussed. He is going to see his primary care physician next week to obtain a surgical clearance. I spent 20 minutes in this consult for preparation review the imaging and discussing plan of care. Bryson Sawant MD, PhD Spine Fellowship Trained Neurosurgeon Director, [facility] [place] [facility] Coding Level of Care Code Est Pt Level 3 (89409) Diagnoses Cervical spondylosis with myelopathy and radiculopathy M47.12; M47.22
== END 2022-12-29 10:40 | disposition home or self-care (01) ==
PROVIDERS: PCP Internal Medicine; Visit Provider Neurological Surgery
DX: M47.12 Other spondylosis with myelopathy, cervical region (principal); M47.22 Other spondylosis with radiculopathy, cervical region
CPT/HCPCS: 99213

== ENCOUNTER 2023-01-07 12:50 | Outpatient (AMB) | payer MEDICAID, SELFPAY ==
--- NOTE | 2023-01-07 13:18 | MHC.OFFVIS ---
Intake Intake Visit Reasons: 6M PSA/Testosterone(set) Intake Note: Patient is Present for Follow Up LABS Urology Medication: Testosterone, Tamsulosin Antibiotic Allergies: None Blood Thinners: None Pharmacy: [facility] Allergies morphine [MORPHINE] Allergy (Unknown, Verified 01/07/23 13:18) NAUSEA, nausea and vomiting PFSH Medical History Type II diabetes mellitus Peyronie's disease Erectile dysfunction due to diseases classified elsewhere Enlarged prostate with lower urinary tract symptoms (LUTS) Other obstructive and reflux uropathy Rotator cuff impingement syndrome of left shoulder Elevated PSA Surgical History History of surgery Family History Father No problems noted. Mother No problems noted. 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
--- NOTE | 2023-01-07 13:26 | A.OFFVIS_ITS ---
Intake Intake Visit Reasons: 6M PSA/Testosterone(set) Allergies morphine [MORPHINE] Allergy (Unknown, Verified 01/07/23 13:18) NAUSEA, nausea and vomiting HPI HPI Comments History of Present Illness Details Rao is a pleasant male. He is seen for the following urologic issues - hypogonadism - lower urinary tract symptoms Continue good response to testosterone injections Lab work within target 6 month follow-up Prescription provided Lower urinary tract symptoms Progressive Current therapy Flomax Hypogonadism Long-term usage of testosterone gel Switched over to injectable 2020 Injection day Tuesday Laboratory day Tuesday Laboratories - 11/29 T 1000, hematocrit 42.9, PSA 0.43 , 06/02 T 720 P 0.53 H 39, 11/30 536 0.7 44, 07/01 T 530 P 0.9 H 46, 01/01 T 825 P 1.4 H 47 Patient Peyronie disease which is asymptomatic since 09/27/2019? [facility] Medical History Type II diabetes mellitus Peyronie's disease Erectile dysfunction due to diseases classified elsewhere Enlarged prostate with lower urinary tract symptoms (LUTS) Other obstructive and reflux uropathy Rotator cuff impingement syndrome of left shoulder Elevated PSA Surgical History History of surgery Family History Father No problems noted. Mother No problems noted. Social History Alcohol intake: never Patient Tobacco Use Status: Current everyday Tobacco user Cigarette Packs Per Day: 5 Current occupational status: retired Current occupation: right handed Review of Systems Const Denies chills and Denies fever(s) Card Reports no additional complaints and Denies syncope Resp Denies cough GI Denies abdominal pain and Denies heartburn Reports as per HPI and Denies change in libido Neuro Denies syncope Psych Denies change in libido Endo Denies change in libido Physical Exam Const General: cooperative, healthy appearing, comfortable and no acute distress Orientation/consciousness: patient oriented x3 HEENT Face and sinus: Yes normal facial exam Mouth: moist mucous membranes Neck Neck: Yes normal visual inspection, Yes full ROM and Yes trachea midline Chest Chest palpation & inspection: normal inspection of the chest Resp Effort & Inspection: normal respiratory effort, able to speak in complete sentences and no respiratory distress GI Inspection: Yes normal to inspection Back/Spine/Pelvis Cervical Spine: normal cervical lordosis Thoracic/Lumbar Spine: thoracic and lumbar spine normal to inspection Skin General skin exam: no rashes or lesions noted Neuro General: patient oriented x3, gait normal, tone normal and moves all extremities Extrem General: Yes normal to inspection and Yes capillary refill normal Assessment & Plan Assessment & Plan (1) Hypogonadism in male: Code(s): E29.1 - Testicular hypofunction (2) Peyronie's disease: Code(s): N48.6 - Induration penis plastica Plan Six month follow-up Orders: Orders Prostate Specific Antigen 6 Months E29.1 - Testicular hypofunction Testosterone, Total 6 Months E29.1 - Testicular hypofunction Complete Blood Count no Diff 6 Months E29.1 - Testicular hypofunction Patient Instructions: Imaging studies, laboratory and physical exam results were discussed and reviewed in detail. No major barriers to patient understanding were identified. An opportunity to ask questions regarding the treatment plan was provided. All questions were answered. The patient expressed understanding and agreement with the above treatment plan. The patient is aware they should contact our office by phone for worsening of their current condition or the appearance of new urologic symptoms. Compliance is encouraged with any medications and followup testing that is ordered. It is a privilege to participate in the urologic care of your patient. If you have any questions or concerns regarding treatment for the above conditions, or other urologic issues, please do not hesitate to contact me. The office telep alpa contact is [phone]. This note is constructed using voice recognition software. While every effort has been made to ensure accuracy departmental shipping clerk errors may have been included. Yours sincerely, Dr Norberto Dover MD, [facility] - Urology Providers of Expert, Compassionate Care for the Genitourinary System Coding Level of Care Code Est Pt Level 3 (76301) Diagnoses Hypogonadism in male E29.1 Peyronie's disease N48.6
== END 2023-01-07 13:34 | disposition home or self-care (01) ==
PROVIDERS: PCP Internal Medicine; Visit Provider Urology
DX: E29.1 Testicular hypofunction (principal); N48.6 Induration penis plastica
CPT/HCPCS: 99213

== ENCOUNTER → 2023-01-07 12:50 | Outpatient (BNVA) | payer MEDICAID, SELFPAY | PROVIDERS: Visit Provider Urology | DX: E29.1 Testicular hypofunction (principal); N48.6 Induration penis plastica | CPT/HCPCS: 99212 ==

== ENCOUNTER 2023-01-31 10:11 | Outpatient (REF) | payer MEDICAID, SELFPAY ==
--- NOTE | ~2023-01-31 | US_ITS ---
EXAMINATION: US EXTRACRANIAL CAROTID DUPLEX, BILATERAL CLINICAL INFORMATION: Preoperative x-ray surgery, COPD, rule out stenosis COMPARISON: None available. TECHNIQUE: Real-time ultrasound and Doppler techniques (integrating B-mode 2-D vascular images, Doppler spectral analysis and color-flow Doppler imaging) were utilized to interrogate the extracranial carotid arteries, the vertebral arteries and proximal subclavian arteries bilaterally. The degree of stenosis is determined by criteria similar to NASCET. FINDINGS: Right Side: 1. There is mild atherosclerotic plaque seen in the bifurcation/proximal ICA region. 2. The common carotid artery PSV proximally is 14 cm/s and distally 96 cm/s. 3. The proximal internal carotid artery velocities are 105 cm/s systolic and 44 cm/s diastolic. 4. The proximal external carotid artery PSV is 152 cm/s. 5. The vertebral artery shows antegrade flow. 6. The subclavian artery waveforms are normal. Left Side: 1. There is mild atherosclerotic plaque seen in the bifurcation/proximal ICA region. 2. The common carotid artery PSV proximally is 134 cm/s and distally 85 cm/s. 3. The proximal internal carotid artery velocities are 95 cm/s systolic and 22 cm/s diastolic. 4. The proximal external carotid artery PSV is 192 cm/s. 5. The vertebral artery shows antegrade flow. 6. The subclavian artery waveforms are normal. US/US carotid duplex BI IMPRESSION: 1. RIGHT: Minimal, non-hemodynamically significant stenosis of the proximal right internal carotid artery corresponding to a 0-49% stenosis by velocity criteria. 2. LEFT: Minimal, non-hemodynamically significant stenosis of the proximal left internal carotid artery corresponding to a 0-49% stenosis by velocity criteria.
== END 2023-01-31 10:12 | disposition home or self-care (01) ==
LOC: HO.US 10:11
PROVIDERS: Visit Provider Internal Medicine
DX: J44.0 Chronic obstructive pulmonary disease with (acute) lower respiratory infection (principal)
CPT/HCPCS: 93880

== ENCOUNTER 2023-02-14 07:45 | Outpatient (REF) | payer MEDICAID, SELFPAY ==
[2023-02-14 10:49] LABS: MANUAL DIFF FLAG NO
[2023-02-14 10:54] LABS: Basophils Absolute Auto 0.1 X10*3/uL (0.0-0.2); Eosinophils Absolute Auto 0.3 X10*3/uL (0.0-0.4); Hemoglobin 16.3 g/dl (14.0-18.0); Imm Gran Abs Auto 0.05 X10*3/uL (0.00-0.03); Imm Gran Pct Auto 0.7 % (0.0-0.4); Lymphocytes Absolute Auto 1.8 X10*3/uL (1.2-4.9); Lymphocytes Percent Auto 24.8 % (20-40); Mean Corpuscular HGB Conc 34.7 g/dl (31.0-36.0); Mean Corpuscular Hemoglobin 33.4 pg (27.0-33.0); Mean Corpuscular Volume 96.3 fL (80.0-98.0); Mean Platelet Volume 9.8 fL (9.4-12.4); Monocytes Absolute Auto 0.6 X10*3/uL (0.1-1.2); Monocytes Percent Auto 8.9 % (2-11); Neutrophils Absolute Auto 4.4 x10*3/uL (2.0-8.3); Neutrophils Percent Auto 60.6 % (45-73); Platelet Count 232 X10*3/uL (160-400); Red Blood Count 4.88 X10*6/uL (4.60-5.80); Red Cell Distribution Width 12.4 % (11.0-16.0); White Blood Count 7.2 X10*3/uL (4.8-10.8)
[2023-02-14 11:03] LABS: Estimated Average Glucose 134 mg/dL; Hemoglobin A1c % 6.3 % (<6.0)
[2023-02-14 11:14] LABS: Alanine Aminotransferase 26 U/L (0-40); Albumin Level 4.1 g/dL (3.5-5.0); Alkaline Phosphatase 81 U/L (39-117); Anion Gap 15 (12-20); Aspartate Amino Transferase 26 U/L (5-37); Bilirubin Total 0.5 mg/dL (0.0-1.0); Blood Urea Nitrogen 9 mg/dL (9-16); Calcium 9.6 mg/dL (8.4-10.2); Carbon Dioxide 25 mmol/L (22-29); Chloride 104 mmol/L (96-108); Estimated Glomerular Filt Rate > 60; Glucose Random 141 mg/dL (60-115); Potassium 4.5 mmol/L (3.3-5.1); Sodium 139 mmol/L (135-145)
[2023-02-14 11:26] LABS: Vitamin D 25-OH Total 29.2 ng/mL (>30)
== END 2023-02-14 07:46 | disposition home or self-care (01) ==
LOC: HO.10HDL 07:45
PROVIDERS: Visit Provider Internal Medicine
DX: J44.9 Chronic obstructive pulmonary disease, unspecified (principal); E11.9 Type 2 diabetes mellitus without complications; I10 Essential (primary) hypertension; E55.9 Vitamin D deficiency, unspecified
CPT/HCPCS: 36415; 80053; 82306; 83036; 85025

== ENCOUNTER 2023-06-09 12:04 | Outpatient (REF) | payer MEDICAID, SELFPAY ==
[2023-06-09 13:14] LABS: MANUAL DIFF FLAG NO
[2023-06-09 13:19] LABS: Basophils Absolute Auto 0.1 X10*3/uL (0.0-0.2); Basophils Percent Auto 0.7 % (0-2); Eosinophils Absolute Auto 0.1 X10*3/uL (0.0-0.4); Eosinophils Percent Auto 0.8 % (0-4); Hematocrit 46.3 % (42.0-52.0); Hemoglobin 16.2 g/dl (14.0-18.0); Imm Gran Abs Auto 0.07 X10*3/uL (0.00-0.03); Imm Gran Pct Auto 0.8 % (0.0-0.4); Lymphocytes Absolute Auto 0.8 X10*3/uL (1.2-4.9); Lymphocytes Percent Auto 9.8 % (20-40); Mean Corpuscular Hemoglobin 32.9 pg (27.0-33.0); Mean Corpuscular Volume 93.9 fL (80.0-98.0); Mean Platelet Volume 9.8 fL (9.4-12.4); Monocytes Absolute Auto 0.6 X10*3/uL (0.1-1.2); Monocytes Percent Auto 6.6 % (2-11); Neutrophils Absolute Auto 6.8 x10*3/uL (2.0-8.3); Neutrophils Percent Auto 81.3 % (45-73); Platelet Count 297 X10*3/uL (160-400); Red Blood Count 4.93 X10*6/uL (4.60-5.80); Red Cell Distribution Width 12.8 % (11.0-16.0); White Blood Count 8.4 X10*3/uL (4.8-10.8)
[2023-06-09 13:24] LABS: Estimated Average Glucose 154 mg/dL
[2023-06-09 13:39] LABS: Alanine Aminotransferase 19 U/L (0-40); Albumin Level 4.4 g/dL (3.5-5.0); Alkaline Phosphatase 114 U/L (39-117); Anion Gap 18 (12-20); Aspartate Amino Transferase 23 U/L (5-37); Bilirubin Total 0.3 mg/dL (0.0-1.0); Blood Urea Nitrogen 16 mg/dL (9-16); Carbon Dioxide 25 mmol/L (22-29); Chloride 103 mmol/L (96-108); Estimated Glomerular Filt Rate > 60; Glucose Random 253 mg/dL (60-115); Potassium 4.8 mmol/L (3.3-5.1); Sodium 141 mmol/L (135-145); Total Protein 7.5 g/dL (6.5-8.0)
[2023-06-09 13:45] LABS: Creatinine Urine 76.65 mg/dL; Microalbum/Creatinine Ratio Ur 155.2 ug/mg cr (<30)
== END 2023-06-09 12:05 | disposition home or self-care (01) ==
LOC: HO.10HDL 12:04
PROVIDERS: Visit Provider Internal Medicine
DX: E11.22 Type 2 diabetes mellitus with diabetic chronic kidney disease (principal); E11.51 Type 2 diabetes mellitus with diabetic peripheral angiopathy without gangrene; I12.9 Hypertensive chronic kidney disease with stage 1 through stage 4 chronic kidney disease, or unspecified chronic kidney disease; J44.9 Chronic obstructive pulmonary disease, unspecified; N18.9 Chronic kidney disease, unspecified
CPT/HCPCS: 36415; 80053; 82043; 82570; 83036; 85025

== ENCOUNTER 2023-06-23 10:38 | Outpatient (REF) | payer MEDICAID, SELFPAY ==
[2023-06-23 13:37] LABS: Hematocrit 41.5 % (42.0-52.0); Hemoglobin 14.6 g/dl (14.0-18.0); Mean Corpuscular HGB Conc 35.2 g/dl (31.0-36.0); Mean Corpuscular Hemoglobin 33.3 pg (27.0-33.0); Mean Corpuscular Volume 94.7 fL (80.0-98.0); Mean Platelet Volume 10.1 fL (9.4-12.4); Platelet Count 221 X10*3/uL (160-400); Red Blood Count 4.38 X10*6/uL (4.60-5.80); Red Cell Distribution Width 12.8 % (11.0-16.0); White Blood Count 6.4 X10*3/uL (4.8-10.8)
[2023-06-23 14:07] LABS: Prostate Specific Antigen 0.52 ng/mL (<0.05-4.0)
[2023-06-29 11:53] LABS: Testosterone, Total 457 ng/dL (250-1100)
== END 2023-06-23 10:39 | disposition home or self-care (01) ==
LOC: HO.10HDL 10:38
PROVIDERS: Visit Provider Urology
DX: E29.1 Testicular hypofunction (principal)
CPT/HCPCS: 36415; 84153; 84403; 85027

== ENCOUNTER 2023-06-28 07:52 | Day surgery (SDC) | payer MEDICAID, SELFPAY ==
--- NOTE | 2023-06-15 16:34 | HP_ITS ---
DATE OF SERVICE: 06/28/2023 HISTORY OF PRESENT ILLNESS: The patient is a 57-year-old male who was seen in the office on 06/09/2023, for preop evaluation prior to neck surgery scheduled with Dr. Vogel. I have just been notified today the date has been moved up to June 15. ALLERGIES: THE PATIENT LISTS AN ALLERGY TO MORPHINE. PAST MEDICAL HISTORY: Significant for COPD with ongoing tobacco abuse, [id number] diabetes, chronic renal insufficiency, peripheral vascular disease, hypertension, fatty liver, diverticulosis, elevated cholesterol, low vitamin D. REVIEW OF SYSTEMS: He has lost 3 pounds. No fevers, chills, or sweats. No headaches. No chest pain. No palpitations. No peripheral edema. He has chronic cough and wheezing and shortness of breath with most activities. No abdominal pain or heartburn. No dysuria. He does have nocturia x1. He has arthritis in his leg joints. No confusion. Sleep and appetite are normal. He does have hay fever. No skin complaints. FAMILY HISTORY: Mother at age 52 from coronary artery disease and diabetes. Father at 76 from coronary artery disease. He has 2 brothers in good health. One sister with diabetes. Socially lives with significant other. Has one daughter. PHYSICAL EXAMINATION: GENERAL: He is awake and alert, in no acute distress. VITAL SIGNS: Temperature is 98, pulse 83, respiratory rate 14, blood pressure 114/70, oxygen saturations 96% on room air. Weight is 200 pounds. Height is 5 feet 9 inches. HEENT: Clear. NECK: Supple. No lymph nodes, bruits or masses. HEART: Sounds S1, S2. Regular rate. LUNGS: Very distant inspiratory and expiratory wheezes bilaterally. ABDOMEN: Soft, nontender. EXTREMITIES: No clubbing, cyanosis, or edema. NEUROLOGIC: Cranial nerves II through XII are intact. He is alert and oriented x3. PRESENT MEDICATIONS: Albuterol inhaler 2 puffs every 4 hours as needed, lisinopril 10 mg a day, vitamin D a 1000 units a day, atorvastatin 10 mg a day, Trulicity injection 1.5 once a week, metformin a 1000 mg twice a day, gemfibrozil 600 twice a day, baby aspirin once a day 81 mg, gabapentin 200 mg 3 times a day and 300 mg at bedtime. He is medically stable. Labs were completed. A cardiogram done in the office shows sinus arrhythmia with RSR in V1 and 2, late transition in V6. No acute ischemic changes. ASSESSMENT/PLAN: He has fairly significant chronic obstructive pulmonary disease and that is the primary risk factor related to his surgery. His respiratory status should be monitored closely and should be monitored postop because he is at increased risk for complications given his severe chronic obstructive pulmonary disease. He is going to need monitoring of his glucose levels given his treatment for diabetes with Trulicity and metformin. His blood pressure has been stable. Renal insufficiency may need to be followed postop as well. Salvador Max MD FC/MODL / [id number]
[2023-06-22 13:46] VITALS: BP 143/75; PULSE 92; RESP 18; O2SAT 94; BMI 30.3
--- NOTE | 2023-06-27 13:05 | HO.ANESPROP2 ---
Documented by User: Johana Antony NP 06/27/23 13:08 HPI - Anesthesia Eval Consult details Narrative: 57yo M for C5-6, C7-T1 Ant Cerv Discectomy w/ fusion (possible posterior C8 Foraminotomy) PAT eval by Dr Lezama 06/22/23 Medically cleared by PCP Hx of CKD 2 and resolved JENI. Followed by [facility]. Last office visit 11/2022 and was stable Anesthesia Pre-Procedure Meds Is the patient on any of the following meds?: Dulaglutide (Trulicity) PMFSH Active Problems Active Problems: All Active Problems (Updated 06/22/23 @ 13:26 by Vanessa Sanchez, RN) Supraglottic mass (Acute) Cervical spondylosis with myelopathy and radiculopathy (Acute) History of fusion of cervical spine (Acute) Muscle wasting and atrophy, not elsewhere classified, right hand (Acute) Muscle wasting and atrophy, not elsewhere classified, left hand (Acute) Numbness and tingling in both hands (Acute) Dupuytren's contracture of left hand (Acute) Impingement syndrome of right shoulder (Acute) Periscapular pain (Acute) Hypogonadism in male (Acute) Type II diabetes mellitus (Acute) Peyronie's disease (Acute) Past Medical History Medical History (Updated 06/22/23 @ 13:26 by Vanessa Sanchez, RYDER) SOB (shortness of breath) COPD (chronic obstructive pulmonary disease) TIA (transient ischemic attack) Stroke Steatosis of liver Osteoarthritis Lyme disease Infection due to Escherichia coli Hyperlipidemia Hyperkalemia Pyelonephritis HTN (hypertension) Diverticulosis Cervical disc disorder Acute kidney injury Back pain Asthma Type II diabetes mellitus Peyronie's disease Erectile dysfunction due to diseases classified elsewhere Enlarged prostate with lower urinary tract symptoms (LUTS) Other obstructive and reflux uropathy Rotator cuff impingement syndrome of left shoulder Elevated PSA Family History Family History Father No problems noted. Mother No problems noted. Surgical History Surgical History (Updated 06/22/23 @ 13:29 by Vanessa Sanchez RN) H/O colonoscopy Hx of appendectomy History of surgery Social History Social History Are you a primary director critical care to a significant other at home: No Do you presently have visiting nurse or other home services: No Alcohol intake: never Patient Tobacco Use Status: Current everyday Tobacco user Tobacco use type: Cigarette Cigarette Packs Per Day: 5 Cigarettes Per Day: 3 Use of substances other than those prescribed or required for medical reasons: No Have you been hit, kicked, punched, or otherwise hurt by someone within the past year? If so, by whom?: No Are you DNR?: No Advance Directives: No Advance Directives Information Provided: Yes Advance Directives on File: No Recently lost weight without trying: No Eating poorly because of decreased appetite: No Nutrition Risks: No Nutritional Risk Poor oral hygiene: Yes (missing teeth upper and lower) Current occupational status: retired Current occupation: right handed Meds Allergies Allergy/AdvReac Type Severity Reaction Status Date / Time morphine [MORPHINE] Allergy Unknown NAUSEA, Verified 01/07/23 13:18 nausea and vomiting Home Medications Medication Instructions Recorded Confirmed Last Taken Type albuterol sulfate 90 mcg/actuation 2 puff PO QID PRN Shortness Of 06/17/21 06/22/23 Unknown History aerosol inhaler (ProAir HFA) Breath Or Wheezing atorvastatin 10 mg tablet 10 mg PO DAILY@1700 06/17/21 06/22/23 Unknown History blood sugar diagnostic (FreeStyle #10 ea 06/17/21 07/01/22 Unknown History Lite Strips) dulaglutide 1.5 mg/0.5 mL 1.5 mg subcut QWEEK 06/17/21 06/22/23 05/29/23 History subcutaneous pen injector (Trulicity) fluticasone propionate 50 1 spray intranasal BID PRN Allergy 06/17/21 06/22/23 Unknown History mcg/actuation nasal Symptoms spray,suspension gabapentin 100 mg capsule 200 mg PO TID 06/17/21 06/22/23 Unknown History gabapentin 300 mg capsule 300 mg PO BEDTIME 06/17/21 06/22/23 Unknown History lisinopril 10 mg tablet 10 mg PO DAILY 06/17/21 06/22/23 Unknown History metformin 1,000 mg tablet 1,000 mg PO BID 06/17/21 06/22/23 Unknown History syringe with needle 1 mL 25 gauge #1 ea 06/17/21 07/01/22 Unknown History x 5/8 (UltiCare) aspirin 81 mg tablet,delayed 81 mg PO DAILY 06/22/23 06/22/23 06/23/23 History release cholecalciferol (vitamin D3) 10 10 mcg PO DAILY 06/22/23 06/22/23 Unknown History mcg (400 unit) capsule (Vitamin D3) gemfibrozil 600 mg tablet 600 mg PO BID 06/22/23 06/22/23 Unknown History tamsulosin 0.4 mg capsule 0.4 mg PO DAILY@1700 06/22/23 06/22/23 Unknown History Exam Height,Weight and Vital Signs: Height 5 ft 9 in Weight 92.986 kg Last Vital Signs Pulse 92 06/22/23 13:46 Resp 18 06/22/23 13:46 BP 143/75 H 06/22/23 13:46 Pulse Ox 94 06/22/23 13:46 O2 Del Method Room Air 06/22/23 13:46 Pertinent Lab Results Pertinent Lab Results: Laboratory Tests 06/22/23 14:20 Blood Type O Positive Antibody Screen NEGATIVE Laboratory Tests 06/09/23 06/23/23 12:10 10:40 WBC 6.4 Hgb 14.6 Hct 41.5 L Plt Count 221 D Sodium 141 Potassium 4.8 Chloride 103 Carbon Dioxide 25 BUN 16 Creatinine 1.17 Narrative Narrative: EKG Per clearance note 06/2023 SA with RSR in V1 and 2, late transition in V6 No acute ischemic changes Assessment and Plan Assessment Anesthesia Assessment: Chart Reviewed Documented by User: Alberto Barajas MD 06/28/23 09:36 HPI - Anesthesia Eval Anesthesia Pre-Procedure Meds If Yes to any meds - educate patient: Pt education - increased risk of aspiration PMFSH Past Medical History Medical History (Updated 06/22/23 @ 13:26 by Vanessa Sanchez RN) SOB (shortness of breath) COPD (chronic obstructive pulmonary disease) TIA (transient ischemic attack) Stroke Steatosis of liver Osteoarthritis Lyme disease Infection due to Escherichia coli Hyperlipidemia Hyperkalemia Pyelonephritis HTN (hypertension) Diverticulosis Cervical disc disorder Acute kidney injury Back pain Asthma Type II diabetes mellitus Peyronie's disease Erectile dysfunction due to diseases classified elsewhere Enlarged prostate with lower urinary tract symptoms (LUTS) Other obstructive and reflux uropathy Rotator cuff impingement syndrome of left shoulder Elevated PSA Family History Family History Father No problems noted. Mother No problems noted. Family history of problems with anesthesia: No Surgical History Surgical History (Updated 06/22/23 @ 13:29 by Vanessa Sanchez RN) H/O colonoscopy Hx of appendectomy History of surgery History of Problems with Anesthesia: No Social History Social History Are you a primary director critical care to a significant other at home: No Do you presently have visiting nurse or other home services: No Alcohol intake: never Patient Tobacco Use Status: Current everyday Tobacco user Tobacco use type: Cigarette Cigarette Packs Per Day: 5 Cigarettes Per Day: 3 Use of substances other than those prescribed or required for medical reasons: No Have you been hit, kicked, punched, or otherwise hurt by someone within the past year? If so, by whom?: No Are you DNR?: No Advance Directives: No Advance Directives Information Provided: Yes Advance Directives on File: No Recently lost weight without trying: No Eating poorly because of decreased appetite: No Nutrition Risks: No Nutritional Risk Poor oral hygiene: Yes (missing teeth upper and lower) Current occupational status: retired Current occupation: right handed Meds Allergies Allergy/AdvReac Type Severity Reaction Status Date / Time morphine [MORPHINE] Allergy Unknown NAUSEA, Verified 01/07/23 13:18 nausea and vomiting Home Medications Medication Instructions Recorded Confirmed Last Taken Type albuterol sulfate 90 mcg/actuation 2 puff PO QID PRN Shortness Of 06/17/21 06/22/23 Unknown History aerosol inhaler (ProAir HFA) Breath Or Wheezing atorvastatin 10 mg tablet 10 mg PO DAILY@1700 06/17/21 06/22/23 Unknown History blood sugar diagnostic (FreeStyle #10 ea 06/17/21 07/01/22 Unknown History Lite Strips) dulaglutide 1.5 mg/0.5 mL 1.5 mg subcut QWEEK 0306/22/23 05/29/23 History subcutaneous pen injector (Trulicity) fluticasone propionate 50 1 spray intranasal BID PRN Allergy 06/17/21 06/22/23 Unknown History mcg/actuation nasal Symptoms spray,suspension gabapentin 100 mg capsule 200 mg PO TID 06/17/21 06/22/23 Unknown History gabapentin 300 mg capsule 300 mg PO BEDTIME 06/17/21 06/22/23 Unknown History lisinopril 10 mg tablet 10 mg PO DAILY 06/17/21 06/22/23 Unknown History metformin 1,000 mg tablet 1,000 mg PO BID 06/17/21 06/22/23 Unknown History syringe with needle 1 mL 25 gauge #1 ea 06/17/21 07/01/22 Unknown History x 5/8 (UltiCare) aspirin 81 mg tablet,delayed 81 mg PO DAILY 06/22/23 06/22/23 06/23/23 History release cholecalciferol (vitamin D3) 10 10 mcg PO DAILY 06/22/23 06/22/23 Unknown History mcg (400 unit) capsule (Vitamin D3) gemfibrozil 600 mg tablet 600 mg PO BID 06/22/23 06/22/23 Unknown History tamsulosin 0.4 mg capsule 0.4 mg PO DAILY@1700 06/22/23 06/22/23 Unknown History Exam Airway Mallampati Class: III TM Dist: >3cm Neck ROM: Limited Loose/Missing/Broken Teeth: Yes and Upper Assessment and Plan Assessment Anesthesia Assessment: Anesthesia Plan Discussed Final Anesthetic Review Family History of Problems with Anesthesia: No History of Problems with Anesthesia: No NPO: Yes ASA Class: III Final Preanesthetic Review: Meds/Allgs Chart Reviewed and Anes Risks/Benef Reviewed Patient Risk: Intermediate Procedure Risk: Intermediate Anesthetic Plan Anesthetic Plan: GA Disposition: Standard PACU
[2023-06-28] VITALS (14 sets, daily range): BP systolic 104–168; BP diastolic 55–84; PULSE 68–96; RESP 12–20; TEMP 36.2–37.4; O2SAT 92–98; BMI 30.2
--- NOTE | ~2023-06-28 | FL_ITS ---
EXAMINATION: XR FLUOROSCOPY WITH IMAGES CLINICAL INFORMATION: C5-6, C7-T1 Ant Cervical disc w/ fusion. COMPARISON: CT cervical spine 12/29/2022. TECHNIQUE: Fluoroscopy Supervised By: Dr. Sawant. Fluoroscopy Time: 13 seconds. Cumulative Dose: 7.6056 mGy. DAP: 1.8025 Gycm2. Images: 5. FINDINGS: Intraoperative fluoroscopy and spot films were performed during a procedure in the OR. ACDF hardware is seen. Please see Jese's report for complete details and levels. FL/FL guidance in OR IMPRESSION: Intraoperative fluoroscopy and spot films were obtained. Please see Noahs's report for complete details.
--- NOTE | 2023-06-28 06:57 | MHC.SHP ---
Pre-Procedural Eval Section A - 24 Hr Update-Section A only Date of Service: 06/28/23 The patient is an INPATIENT: No Changes since office visit: No Cold of Flu in the past 2 weeks, No New Medical Problems, No Changes in Medication and No Patient answered all questions The patient has been examined within 24 hours of the surgical procedure. The History & Physical has been completed within 30 days and I have reviewed it.: No Section B - Complete if H&P > 30 days Chief Complaint: Other spondylosis with myelopathy, cervical region Allergies: Allergies Allergy/AdvReac Type Severity Reaction Status Date / Time morphine [MORPHINE] Allergy Unknown NAUSEA, Verified 01/07/23 13:18 nausea and vomiting Review of Systems Sugical H&P ROS: Negative: Constitution, Cardiovascular, Respiratory, Neurological, Psychiatric, Hem-Onc, Allergic/Immunologic, Gastrointestinal, Genitourinary, Musculoskeletal, Integumentary, Endocrine and Eyes/Ears/Nose/Throat Exam Surgical H&P Exam: Not Evaluated: HEENT, Not Evaluated: Heart, Not Evaluated: Lungs, Not Evaluated: Extremities, Not Evaluated: Abdomen, Not Evaluated: Skin and Not Evaluated: Neurological Plan Diagnosis/Plan: Unchanged C5-6, C7-T1 anterior cervical diskectomy and fusion, possible posterior C8 foraminotomy Time Spent With Patient Time: Total time managing care of this patient today __6__ minutes.
[2023-06-28 08:47] LABS: Glucose, Whole Blood 172 mg/dL (60-115)
[2023-06-28] MEDS: Gabapentin 300 MG CAPSULE PO (09:06)
[2023-06-28] MEDS: methocarbamoL 750 MG TABLET PO (09:06)
[2023-06-28] MEDS: Lactated Ringers 1,000 ML 100 ML IVCONT (09:07)
[2023-06-28] MEDS: Albuterol Sulfate (0.083%) 2.5 MG/3 ML VIAL.NEB INHALE (09:12)
--- NOTE | 2023-06-28 09:30 | PC.NURSE ---
Anesthsia dr. Hopson at bedside for consent with pt.
--- NOTE | 2023-06-28 14:44 | PM.DS ---
DS: Providers Provider Date of Service: 06/28/23 Date of discharge: 06/28/23 Primary care physician: Louis Max MD Admitting clinician: Bryson Sawant DS: Diagnosis Discharge Diagnosis (1) Cervical spondylosis with myelopathy and radiculopathy: Status: Acute DS: Summary Time Attestation Discharge Coordination Time (in mins): 5 minutes Quality: Safe Use of Opioids Does Pt have an Active Cancer Diagnosis on the Problem List?: No Quality: Stroke Does the patient have a stroke diagnosis?: No Physical Exam Vital Signs: Vital Signs: Last Vital Signs Temp 97.1 F 06/28/23 08:49 Pulse 68 06/28/23 09:12 Resp 18 06/28/23 09:12 BP 139/82 06/28/23 08:49 Pulse Ox 95 06/28/23 08:49 O2 Del Method Room Air 06/28/23 08:49 BMI result Body Mass Index 30.2 DS: Data Data Completed and Pending Labs on day of discharge: Laboratory Results - last 24 hr 06/28/23 08:44 POC Glucose 172 H Discharge Plan Discharge Patient Disposition: Home, Self-Care Referrals: Louis Max MD [Primary Care Provider] - 1 Week Discharge Medications: New docusate sodium [Colace] 100 mg capsule 100 mg PO BID Qty: 20 0RF oxycodone 5 mg tablet 5 mg PO Q4H PRN (Reason: pain) Qty: 30 0RF Rx Instructions: Partial Fill upon patient request. Continued (DME) insulin syringe-needle U-100 1 mL 25 gauge x 5/8 syringe See Rx Instructions .MEDSUPPLY Qty: 30 0RF Rx Instructions: As directed (DME) needle (disp) 22 G 22 gauge x 1 1/2 needle See Rx Instructions .MEDSUPPLY Qty: 50 0RF Rx Instructions: As directed testosterone cypionate [Depo-Testosterone] 200 mg/mL oil 80 mg subcut QWEEK 28 Days Qty: 2 5RF Patient Comments: patient takes every Tuesday tamsulosin 0.4 mg capsule 0.4 mg PO DAILY@1700 gemfibrozil 600 mg Tablet 600 mg PO BID cholecalciferol (vitamin D3) [Vitamin D3] 10 mcg (400 unit) Capsule 10 mcg PO DAILY albuterol sulfate [ProAir HFA] 90 mcg/actuation HFA aerosol inhaler 2 puff PO QID PRN (Reason: Shortness Of Breath Or Wheezing) atorvastatin 10 mg tablet 10 mg PO DAILY@1700 (DME) FreeStyle Lite Strips Strip See Rx Instructions Not Applicable TID Qty: 10 Rx Instructions: As directed lisinopril 10 mg tablet 10 mg PO DAILY metformin 1,000 mg tablet 1,000 mg PO BID gabapentin 300 mg capsule 300 mg PO BEDTIME Trulicity 1.5 mg/0.5 mL pen injector 1.5 mg subcut QWEEK Patient Comments: patient takes every Tuesday fluticasone propionate 50 mcg/actuation spray,suspension 1 spray intranasal BID PRN (Reason: Allergy Symptoms) gabapentin 100 mg capsule 200 mg PO TID (DME) UltiCare 1 mL 25 gauge x 5/8 syringe See Rx Instructions .ROUTE DIRECTED Qty: 1 Rx Instructions: As directed Held aspirin 81 mg Tablet,Delayed Release (Dr/Ec) 81 mg PO DAILY Hold Instructions: Resume on 07/05/23. resume in one week Discharge Orders: Discharge Order (Routine); Ordered 06/28/23 Ordered By: Sonny Garcia Diet: Advance to usual diet Activity on Discharge: As tolerated Activity Restrictions/Additional Instructions: After your spinal surgery we ask you to observe the following restrictions/guidelines: Activity: It is normal to feel some discomfort as you increase your activity, but that will improve with time. We ask you avoid heavy lifting or acitivities that cause pain. As a general rule, 8lbs is a safe limit for lifting right after surgery. Walk as much as you feel comfortable but not to exhaustion. You will feel extra tired the first few days after surgery. Stay well hydrated. It is OK to walk up and down stairs You may return to driving when you are off narcotics (such as vicodin, oxycodone, dilaudid, etc), and you are back to normal functional capacity. If you have any concerns please check with office before driving. Return to work is specific to each patient and each surgery, so please speak with your doctor/PA at first follow up. Please bring paperwork such as FMLA at that time if you need it filled out. Medications: For optimum pain control, it is best to start with a combination of 500 mg of Tylenol every 4 hours with 600 mg of Motrin every 8 hours, and use narcotics as needed in between for breakthrough pain. We will give you a short supply of narcotics after surgery (usually one weeks worth). If you need more please call the office but do not use more than prescribed. You will need to give our office 48 hours notice if you need narcotics refilled and we do not fill narcotics on weekends or evenings. If you are on a narcotic, it is a good idea to take a stool softener such as colace or senna to avoid constipation If you take blood thinner such as aspirin, Plavix, Coumadin, Effient, Eliquis etc for conditions such as Afib, DVT, Pulmonary embolus, coronary disease, stents etc please speak with your surgeon about specific details as to when you can resume these medications. You can resume NSAIDs on post op day 1 (eg: Motrin, Naproxen, etc). Follow up: Please call the office, , after surgery to arrange a 3 week follow up for wound check. Wound Care: You may remove your dressing on the first day after surgery. ?You may ?leave open to air. Please do not remove the steri strips underneath. they will fall off on their own in one week. IT IS NORMAL FOR THE WOUND TO OOZE OR BE BLOODY FOR A FEW DAYS AFTER SURGERY. ?IF THIS HAPPENS JUST PLACE NEW DRESSING OVER IT TO AVOID STAINING CLOTHES. You may shower on post op day # 1 We ask that you do not let the water soak the wound. If it does get wet, just towel dry lightly. Please do not scrub your incision or place any type of chemical/ointment on the wound. No tub baths, pools or jacuzzis for one month. If you have any leaking or redness from your wound, or fevers, please call office
--- NOTE | 2023-06-28 14:52 | W.PM.OPN ---
Operative Note Operative Note Date of Service: 06/28/23 Narrative: Preoperative Diagnosis: Cervical myelopathy and radiculopathy due to adjacent degenerative disc disease C5-C6 and C7-T1 Procedure: C5-6 and C7-T1 Anterior discectomy, arthrodesis and implantation cage ; C5-C6 and C7-T1 anterior instrumentation ; local autograft; microscope Informed Consent was obtained for this operation. I have explained the nature, purpose and benefits of the operation. I have discussed the risks and benefit of the operation including possible complications or adverse events with patient/family. Alternative(s) were discussed with the patient with their relative benefits and risks as well as the consequences of not accepting the operation were included in obtaining consent. Surgeon: REBA LORENZ MD, PHD Procedure Assisted By: oswaldo Luna Description of Procedure: This 57-year-old male presented with myelopathy and bilateral C8 radiculopathy. He had a previous C4-5 and C6-7 anterior diskectomy and fusion done in another institution. Imaging revealed severe degenerative disc disease C5-C6 and C7-T1 with spinal cord compression and severe bilateral C8 foraminal stenosis. I offered him an anterior diskectomy and fusion of the C5-6 and C7-T1 levels. The procedure complications were explained. The patient was consented. The patient was brought to the operating room and endotracheally intubated. The patient was put in supine position with slight extension of the neck. Prep and drape was done followed by timeout. A mid cervical incision was made followed by opening of the platysma. The prevertebral fascia was reached following the natural planes while the physician occupational therapist assistants provided manual retraction. The prevertebral fascia was opened to expose the previous placed anterior instrumentation and the C5-C6 and C7-T1 disc spaces. A spinal needle was placed in the disk space to confirm the correct level with xray. The longus colli muscles were released bilaterally and a self retaining retractor was inserted. Two Killeen pins were placed in the C5 and C6 vertebral bodies and distraction was give over the interspace. The discectomy was completed toward the posterior annulus of the disc. The microscope was brought in. The remainder of the discectomy was completed. The hypertrophied posterior ligament was opened and resected to expose the underlying dura. Osteophytes were resected from the body of C5 and C6 and saved for autograft. Bilateral foraminotomies were done. The endplates were prepared after which a 6 mm cage filled with autograft was inserted into the disc space. A separate attached plate was locked down with 2 x 14 mm screws as anterior instrumentation. Then attention was turned to the C7-T1 area. I was able to place a Killeen pin just below the anterior plate in the body of C7 and another Killeen pin in the body of T1. Distraction was given over the interspace. I performed a diskectomy towards the posterior annulus. I was able to undercut posterior osteophytes from the body of T1 which expose the posterior longitudinal ligament which was accordingly opened and resected to decompress the spinal cord and exiting C8 nerve roots. The endplates were prepared and a 7 mm cage filled with autograft was inserted into the disc space. A separate attached plate was locked down with 2 x 14 mm screws is anterior instrumentation. Final x-rays in AP and lateral projection showed a satisfactory position of the implants The physician occupational therapist assistants took over. The Killeen pin was removed. Hemostasis was done. He closed the incision in 2 layers with a 3-0 Vicryl. Steri-Strips used to approximate incision. An OpSite with Tegaderm was used to cover the incision. All sponge and needle counts were correct. Patient was extubated and transported in stable is to recovery room. Anesthesia: General Estimated Blood Loss (ml): 70 mL Duration of Surgery: 3 hours Postoperative Plan: Discharge home Complications: None
[2023-06-28] MEDS: oxyCODONE HCl Immed Release 5 MG TABLET PO (16:38)
[2023-06-28 17:17] LABS: Glucose, Whole Blood 270 mg/dL (60-115)
--- NOTE | 2023-06-29 12:48 | HO.POSTANES ---
Post Anesthesia Evaluation Post Anesthesia Evaluation Date of Service: 06/29/23 Anesthesia: General Endotracheal-GETA Mental Status: Awake Pain Control: Satisfactory Nausea/Vomiting: None Hydration: Adequate Anesthesia-Related Issues: No Anes. Related Issues
== END 2023-06-28 17:28 | disposition home or self-care (01) ==
PROVIDERS: PCP Internal Medicine; Visit Provider Neurological Surgery
PROC: (CPT 22551; principal; 2023-06-28 10:50)
DX: M50.022 Cervical disc disorder at C5-C6 level with myelopathy (principal); M50.122 Cervical disc disorder at C5-C6 level with radiculopathy; M50.03 Cervical disc disorder with myelopathy, cervicothoracic region; M50.13 Cervical disc disorder with radiculopathy, cervicothoracic region; I10 Essential (primary) hypertension; E11.9 Type 2 diabetes mellitus without complications; J44.9 Chronic obstructive pulmonary disease, unspecified; Z86.73 Personal history of transient ischemic attack (TIA), and cerebral infarction without residual deficits; Z79.82 Long term (current) use of aspirin; Z79.85 Long-term (current) use of injectable non-insulin antidiabetic drugs; Z79.84 Long term (current) use of oral hypoglycemic drugs; Z79.899 Other long term (current) drug therapy; Z88.5 Allergy status to narcotic agent
CPT/HCPCS: 22551; 22552; 22853; 20936; 22845; 82947; 86850; 86900; 86901; 94640; C1713; J0131; J0690; J1100; J1170; J2250; J2405; J2550; J2704; J3010

== ENCOUNTER → 2023-06-28 07:52 | Outpatient (BNV) | payer MEDICAID, SELFPAY | PROVIDERS: PCP Internal Medicine; Visit Provider Physician Assistant | DX: M50.022 Cervical disc disorder at C5-C6 level with myelopathy (principal); M50.03 Cervical disc disorder with myelopathy, cervicothoracic region | CPT/HCPCS: 20936; 22551; 22552; 22845; 22853; 99499 ==

== ENCOUNTER 2023-07-06 08:43 | Outpatient (AMB) | payer MEDICAID, SELFPAY ==
--- NOTE | 2023-07-06 08:44 | A.OFFVIS_ITS ---
Intake Intake Visit Reasons: 6M LABS(set)confirmed Intake Note: Patient presents today for a telehealth follow up on labs Meds- Tamsulosin, Testosterone cypionate Allergies to Antibiotic- No Known Allergies Blood thinner: Aspirin (on hold due to recent surgery) Kiln Placer Required: No Allergies morphine [MORPHINE] Allergy (Unknown, Verified 07/06/23 08:45) NAUSEA, nausea and vomiting Medication List - Last Reconciled 07/06/23 by Norberto Dover MD albuterol sulfate 90 mcg/actuation (ProAir HFA) 2 puffs PO QID PRN aspirin 81 mg PO DAILY atorvastatin 10 mg PO DAILY@1700 blood sugar diagnostic (FreeStyle Lite Strips) As directed cholecalciferol (vitamin D3) (Vitamin D3) 10 mcg PO DAILY docusate sodium (Colace) 100 mg PO BID dulaglutide (Trulicity) 1.5 mg subcut QWEEK fluticasone propionate 50 mcg/actuation 1 spray intranasal BID PRN gabapentin 300 mg PO BEDTIME gabapentin 200 mg PO TID gemfibrozil 600 mg PO BID insulin syringe-needle U-100 As directed lisinopril 10 mg PO DAILY metformin 1,000 mg PO BID needle (disp) 22 G As directed oxycodone 5 mg PO Q6H PRN syringe with needle (UltiCare) As directed tadalafil 5 mg PO DAILY 90 days tamsulosin 0.4 mg PO DAILY@1700 testosterone cypionate (Depo-Testosterone) 80 mg (0.4 mL) subcut QWEEK 4 weeks HPI HPI Comments History of Present Illness Details Rao is a pleasant male. He is seen for the following urologic issues - hypogonadism - lower urinary tract symptoms - erectile dysfunction Telemedicine Evaluation 15 min Consultation [employer] Sean Video attempted Continue good response to testosterone injections Lab work within target 6 month follow-up Prescription provided Reports erectile dysfunction Trial tadalafil 5 mg daily Three-month follow-up Lower urinary tract symptoms Progressive Current therapy Flomax Hypogonadism Long-term usage of testosterone gel Switched over to injectable 2020 Injection day Tuesday Laboratory day Tuesday Laboratories - 11/29 T 1000, hematocrit 42.9, PSA 0.43 , 06/02 T 720 P 0.53 H 39, 11/30 536 0.7 44, 07/01 T 530 P 0.9 H 46, 01/01 T 825 P 1.4 H 47, 07/02 T 460 P0.5 42 Patient Peyronie disease which is asymptomatic since 09/27/2019? [facility] Medical History SOB (shortness of breath) COPD (chronic obstructive pulmonary disease) TIA (transient ischemic attack) Stroke Steatosis of liver Osteoarthritis Lyme disease Infection due to Escherichia coli Hyperlipidemia Hyperkalemia Pyelonephritis HTN (hypertension) Diverticulosis Cervical disc disorder Acute kidney injury Back pain Asthma Type II diabetes mellitus Peyronie's disease Erectile dysfunction due to diseases classified elsewhere Enlarged prostate with lower urinary tract symptoms (LUTS) Other obstructive and reflux uropathy Rotator cuff impingement syndrome of left shoulder Elevated PSA Surgical History H/O colonoscopy Hx of appendectomy History of surgery Family History Father No problems noted. Mother No problems noted. Social History Are you a primary customer care specialist to a significant other at home: No Do you presently have visiting nurse or other home services: No Alcohol intake: never Patient Tobacco Use Status: Current everyday Tobacco user Tobacco use type: Cigarette Cigarette Packs Per Day: 5 Cigarettes Per Day: 3 Current occupational status: retired Current occupation: right handed Assessment & Plan Assessment & Plan (1) Erectile dysfunction associated with type 2 diabetes mellitus: Code(s): E11.69 - Type 2 diabetes mellitus with other specified complication; N52.1 - Erectile dysfunction due to diseases classified elsewhere Plan Three-month follow-up Medications: New tadalafil 5 mg PO DAILY 90 days 90 tabs 0RF sexual activity E11.69 - Type 2 diabetes mellitus with other specified complication, N52.1 - Erectile dysfunction due to diseases classified elsewhere Refilled testosterone cypionate (Depo-Testosterone) 80 mg (0.4 mL) subcut QWEEK 4 weeks 2 mL 5RF E29.1 - Testicular hypofunction, [id number] Patient Instructions: Imaging studies, laboratory and physical exam results were discussed and reviewed in detail. No major barriers to patient understanding were identified. An opportunity to ask questions regarding the treatment plan was provided. All questions were answered. The patient expressed understanding and agreement with the above treatment plan. The patient is aware they should contact our office by phone for worsening of their current condition or the appearance of new urologic symptoms. Compliance is encouraged with any medications and followup testing that is ordered. It is a privilege to participate in the urologic care of your patient. If you have any questions or concerns regarding treatment for the above conditions, or other urologic issues, please do not hesitate to contact me. The office telephone contact is [phone]. This note is constructed using voice recognition software. While every effort has been made to ensure accuracy materials branch chief errors may have been included. Yours sincerely, Dr Norberto Dover MD, [facility] - Urology Providers of Expert, Compassionate Care for the Genitourinary System Telehealth Telehealth Location of provider rendering services: practice address Location of patient: address on file Patient Identification confirmed using: Name, : Yes Telehealth method: video Patient verbally consented to treatment: Yes Patient verbally consented to billing insurance company: Yes Patient informed of any privacy concerns related to visit: Yes Coding Level of Care Code Tele Est Pt Level 4 (41152) Diagnoses Erectile dysfunction associated with type 2 diabetes mellitus E11.69; N52.1
== END 2023-07-06 09:58 | disposition home or self-care (01) ==
LOC: HO.HUSH 08:43
PROVIDERS: PCP Internal Medicine; Visit Provider Urology
DX: E11.69 Type 2 diabetes mellitus with other specified complication (principal); N52.1 Erectile dysfunction due to diseases classified elsewhere
CPT/HCPCS: 99214

== ENCOUNTER → 2023-07-06 08:43 | Outpatient (BNVA) | payer MEDICAID, SELFPAY | PROVIDERS: PCP Internal Medicine; Visit Provider Urology ==

== ENCOUNTER 2023-07-20 13:58 | Outpatient (AMB) | payer MEDICAID, SELFPAY ==
--- NOTE | 2023-07-20 14:00 | MHC.OFFVIS ---
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 Required: No Allergies morphine [MORPHINE] Allergy (Unknown, Verified 07/06/23 08:45) NAUSEA, nausea and vomiting PFSH Medical History SOB (shortness of breath) COPD (chronic obstructive pulmonary disease) TIA (transient ischemic attack) Stroke Steatosis of liver Osteoarthritis Lyme disease Infection due to Escherichia coli Hyperlipidemia Hyperkalemia Pyelonephritis HTN (hypertension) Diverticulosis Cervical disc disorder Acute kidney injury Back pain Asthma Type II diabetes mellitus Peyronie's disease Erectile dysfunction due to diseases classified elsewhere Enlarged prostate with lower urinary tract symptoms (LUTS) Other obstructive and reflux uropathy Rotator cuff impingement syndrome of left shoulder Elevated PSA Surgical History H/O colonoscopy Hx of appendectomy History of surgery Family History Father No problems noted. Mother No problems noted. Social History Are you a primary child care leader to a significant other at home: No Do you presently have visiting nurse or other home services: No Alcohol intake: never Patient Tobacco Use Status: Current everyday Tobacco user Tobacco use type: Cigarette Cigarette Packs Per Day: 5 Cigarettes Per Day: 3 Current occupational status: retired Current occupation: right handed Assessment & Plan Assessment & Plan (1) S/P cervical spinal fusion: Code(s): Z98.1 - Arthrodesis status Plan Procedure: C5-6, C7-T1 ACDF Rao comes in today for his 1st postoperative visit. He reports he is very satisfied with the surgery and feels much better than he did preoperatively. The patient reports he is up walking around and completing the majority of his ADLs. He still has some radiculopathy into his left upper extremity, but feels it is more manageable and has been waxing/waning in nature since his surgery. Notably, on Tuesday he states he had 0 pain for almost the entire day. He still reports mild pain, with good relief with pain medication. He did inquire about receiving an additional prescription of oxycodone to take alongside his Tylenol, as this helps him with pain relief. He is only 3 weeks out from surgery so this is reasonable at this time. Full strength 5/5 UE / LE. Mobility is intact. Sensation grossly intact. Patient is able to ambulate well, rises from a seated position without difficulty. Incision sites are closed, well healing, with no signs of drainage. We will follow-up with the patient in 6 weeks for his 2nd postoperative visit. At that time we will get x-rays to review with the patient. Geo Sawant MD,PhD [facility] Medications: Changed From oxycodone Partial Fill upon patient request. 5 mg PO Q6H PRN 30 tabs 0RF pain To oxycodone Partial Fill upon patient request. 5 mg PO BID PRN 20 tabs 0RF pain Coding Level of Care Code Global (91526) Diagnoses S/P cervical spinal fusion Z98.1
== END 2023-07-20 14:29 | disposition home or self-care (01) ==
PROVIDERS: PCP Internal Medicine; Visit Provider Physician Assistant
DX: Z98.1 Arthrodesis status (principal)
CPT/HCPCS: 99024

== ENCOUNTER → 2023-07-20 13:58 | Outpatient (BNVA) | payer MEDICAID, SELFPAY | PROVIDERS: PCP Internal Medicine; Visit Provider Physician Assistant | DX: Z48.89 Encounter for other specified surgical aftercare (principal); Z98.1 Arthrodesis status | CPT/HCPCS: 99212 ==

== ENCOUNTER 2023-07-27 11:43 | Outpatient (REF) | payer MEDICAID, SELFPAY ==
[2023-07-27 13:02] LABS: MANUAL DIFF FLAG NO
[2023-07-27 13:35] LABS: Basophils Absolute Auto 0.1 X10*3/uL (0.0-0.2); Basophils Percent Auto 0.4 % (0-2); Eosinophils Absolute Auto 0.2 X10*3/uL (0.0-0.4); Hematocrit 40.9 % (42.0-52.0); Hemoglobin 14.1 g/dl (14.0-18.0); Imm Gran Abs Auto 0.09 X10*3/uL (0.00-0.03); Imm Gran Pct Auto 0.8 % (0.0-0.4); Mean Corpuscular HGB Conc 34.5 g/dl (31.0-36.0); Mean Corpuscular Hemoglobin 32.9 pg (27.0-33.0); Mean Corpuscular Volume 95.3 fL (80.0-98.0); Mean Platelet Volume 9.7 fL (9.4-12.4); Monocytes Absolute Auto 0.5 X10*3/uL (0.1-1.2); Monocytes Percent Auto 3.9 % (2-11); Neutrophils Absolute Auto 9.7 x10*3/uL (2.0-8.3); Neutrophils Percent Auto 83.9 % (45-73); Platelet Count 304 X10*3/uL (160-400); Red Blood Count 4.29 X10*6/uL (4.60-5.80); Red Cell Distribution Width 12.6 % (11.0-16.0); White Blood Count 11.6 X10*3/uL (4.8-10.8)
[2023-07-27 14:08] LABS: Alanine Aminotransferase 10 U/L (0-40); Alkaline Phosphatase 101 U/L (39-117); Anion Gap 14 (12-20); Aspartate Amino Transferase 12 U/L (5-37); Bilirubin Total 0.2 mg/dL (0.0-1.0); Blood Urea Nitrogen 28 mg/dL (9-16); Calcium 9.6 mg/dL (8.4-10.2); Carbon Dioxide 24 mmol/L (22-29); Chloride 104 mmol/L (96-108); Estimated Glomerular Filt Rate 53; Glucose Random 307 mg/dL (60-115); Potassium 5.5 mmol/L (3.3-5.1); Sodium 136 mmol/L (135-145); Total Protein 6.7 g/dL (6.5-8.0)
== END 2023-07-27 11:44 | disposition home or self-care (01) ==
LOC: HO.10HDL 11:43
PROVIDERS: Visit Provider Internal Medicine
DX: J44.9 Chronic obstructive pulmonary disease, unspecified (principal); E11.9 Type 2 diabetes mellitus without complications
CPT/HCPCS: 36415; 80053; 85025

== ENCOUNTER 2023-08-03 11:13 | Outpatient (AMB) | payer MEDICAID, SELFPAY ==
--- NOTE | 2023-08-03 11:36 | HO.SPINEOV ---
Intake Visit Reasons: pain/re evaluation Intake Note: Mr. Bowman is here today for pain/re evaluation. Semiconductor Processor Required: No Allergies morphine [MORPHINE] Allergy (Unknown, Verified 08/03/23 11:36) NAUSEA, nausea and vomiting Assessment & Plan Assessment & Plan (1) S/P cervical spinal fusion: Code(s): Z98.1 - Arthrodesis status Category: Surgical Plan Rao comes in today after being added to my schedule abruptly due to complaints of new onset severe left-sided cervical radiculopathy. He states that on Tuesday without any inciting incident he began having severe shooting pains across his left shoulder down the left deltoid over his left elbow and into his left hand. He states that his left 3rd, 4th, and 5th phalanges are affected. He reports that it is to the point where it is keeping him up at night, and has caused him to not use his left arm/hand much. On exam he has 4/5 strength with hand material manager, wrist extension/flexion, and shoulder abduction. Interossei strength and the rest of his left upper extremity is 5/5. His history and physical are concerning for a possible cervical nerve impingement. I will be sending him for a set of flexion/extension x-rays to evaluate for stable placement of surgical construct. If there is no obvious issue with his cervical construct I will be placing an order for an MRI of his cervical spine to evaluate for postsurgical changes/a new acute issue. Geo Sawant MD,PhD [facility] Orders: Orders XR cervical spine 4V Today Z98.1 - Arthrodesis status Medications: New oxycodone Partial Fill upon patient request. 5 mg PO BID PRN 14 tabs 0RF severe pain (scale score 7-10) Coding Level of Care Code Global (82870) Diagnoses S/P cervical spinal fusion Z98.1
== END 2023-08-03 12:19 | disposition home or self-care (01) ==
PROVIDERS: PCP Internal Medicine; Visit Provider Physician Assistant
DX: Z98.1 Arthrodesis status (principal)
CPT/HCPCS: 99024

== ENCOUNTER → 2023-08-03 11:13 | Outpatient (BNVA) | payer MEDICAID, SELFPAY | PROVIDERS: PCP Internal Medicine; Visit Provider Physician Assistant ==

== ENCOUNTER 2023-08-03 12:05 | Outpatient (REF) | payer MEDICAID, SELFPAY ==
--- NOTE | ~2023-08-03 | XR_ITS ---
EXAMINATION: XR CERVICAL SPINE CLINICAL INFORMATION: Status-post arthrodesis. COMPARISON: Cervical spine radiographs dated 12/01/2022. TECHNIQUE: Frontal and lateral (neutral, flexion and extension) views of the cervical spine were obtained. FINDINGS: There is bony demineralization. Vertebral body heights and alignment are normal. There is well-maintained alignment status-post C4-C5, C5-C6, C6-C7 and C7-T1 anterior fusions and discectomies, with intact anterior fixator plate and fixator screws at C4-C5 and C6-C7, and intact anterior Low Profile fixator devices at C5-C6 and C7-T1. No hardware failure or loosening is seen. No instability is seen with flexion or extension. The posterior elements are intact. There is facet arthropathy, most pronounced at C2-C3 and C3-C4. The dens is intact. No prevertebral soft tissue swelling or gas is seen. There are marked bilateral carotid atherosclerotic calcifications. XR/XR cervical spine 4V IMPRESSION: 1. There is well-maintained alignment status-post C4-C5, C5-C6, C6-C7 and C7-T1 anterior fusions and discectomies. No hardware failure or loosening is seen. There is no instability with flexion or extension. 2. There are marked follow-up carotid atherosclerotic calcifications, which can be more fully evaluated with dedicated carotid ultrasound, if clinically indicated.
== END 2023-08-03 12:06 | disposition home or self-care (01) ==
LOC: HO.HOSX 12:05
PROVIDERS: Visit Provider Physician Assistant
DX: Z98.1 Arthrodesis status (principal)
CPT/HCPCS: 72050; 99212

== ENCOUNTER 2023-09-15 09:24 | Outpatient (REF) | payer MEDICAID, SELFPAY ==
--- NOTE | ~2023-09-15 | MR_ITS ---
EXAMINATION: MR CERVICAL SPINE WITHOUT CONTRAST CLINICAL INFORMATION: New left-sided cervical radiculopathy. COMPARISON: CT dated 12/29/2022. X-ray dated 08/03/2023. TECHNIQUE: Multiplanar, multisequential imaging of the cervical spine was performed without contrast. FINDINGS: VERTEBRAL BODIES AND PARASPINAL SOFT TISSUES: Anterior cervical fusion plate hardware artifacts with intervertebral body screws visible at the C4-C5 and C6-C7 levels. The patient has also undergone previous anterior cervical discectomies with zero profile hardware instrumentation at the C5-C6 and C7-T1 levels. There are no compression fractures. The marrow signal is homogeneous. Mild posterior subluxation visible at the C5-C6 level. There is an anterolisthesis at the C7-T1 level. The paraspinal soft tissues are unremarkable. The vertebral artery flow-voids are maintained. The imaged portions of the lungs are grossly clear. CERVICOMEDULLARY JUNCTION AND VISUALIZED POSTERIOR FOSSA: The craniovertebral junction and imaged portions of the brain parenchyma appear normal. No cord signal abnormality or syrinx is seen. SPINAL LEVELS: C2-C3: Shallow central disc protrusion and exuberant left-sided facet arthropathy present with moderate to severe left foraminal encroachment. No central canal stenosis. C3-C4: Small central disc protrusion and mild disc-osteophyte complex with hypertrophic facet arthropathy, worse on the right side. No central canal stenosis. Severe right and moderate left foraminal narrowing. C4-C5: Anterior cervical fusion hardware in place. No central canal stenosis. Mild left foraminal narrowing due to bony spurring. C5-C6: Posterior subluxation present with anterior cervical fusion hardware in place. A right subarticular zone to right foraminal disc protrusion with osseous spurring distorts the right ventrolateral aspect of the cord and likely impinges upon the right C6 nerve root with severe right foraminal encroachment. Significant left foraminal narrowing as well with [id number] central canal stenosis. C6-C7: Interbody osseous fusion changes anteriorly with hardware in place. No central canal stenosis. Osseous spurring with significant bilateral foraminal narrowing. C7-T1: Anterior cervical fusion hardware in place with a mild anterolisthesis and moderate central canal stenosis. Unroofed central disc protrusion with significant facet arthropathy. Severe bilateral foraminal narrowing and compression of the exiting C8 nerve roots. MR/MR cervical spine wo con IMPRESSION: Status post multilevel anterior cervical fusions with hardware instrumentation. Exuberant left-sided facet arthropathy and significant left foraminal encroachment at the C2-C3 level. Severe right and moderate left foraminal narrowing due to spondylosis at the C3-C4 level. Posterior subluxation and anterior cervical fusion hardware in place at the C5-C6 level with a right subarticular to right foraminal disc protrusion resulting in right ventrolateral cord distortion and suspected impingement of the right C6 nerve root. [id number] central canal stenosis and severe foraminal narrowing. Anterior cervical fusion and mild anterolisthesis at C7-T1 with moderate central canal stenosis. Unroofed central disc protrusion. Hypertrophic facet arthropathy and severe foraminal narrowing with compression of the exiting C8 nerve roots.
== END 2023-09-15 09:25 | disposition home or self-care (01) ==
LOC: HO.MRI 09:24
PROVIDERS: PCP Internal Medicine; Visit Provider Physician Assistant
DX: M54.12 Radiculopathy, cervical region (principal)
CPT/HCPCS: 72141

== ENCOUNTER 2023-09-23 11:38 | Outpatient (AMB) | payer MEDICAID, SELFPAY ==
--- NOTE | 2023-09-23 12:28 | A.SPINEOV_ITS ---
Intake Visit Reasons: MRI follow up Intake Note: Mr. Bowman is here today to F/u on MRI. Emergency Services Professional Required: No Allergies morphine [MORPHINE] Allergy (Unknown, Verified 09/23/23 12:29) NAUSEA, nausea and vomiting Assessment & Plan Assessment & Plan (1) Cervical radiculopathy: Code(s): M54.12 - Radiculopathy, cervical region Category: Medical Plan I saw Mr Bowman back in the office today. I reviewed his MRI done at [facility] with Dr. Sawant, he has persistent compression of the C8 nerve roots at the C7-T1 levels. He has severe arm pain bilaterally left greater than right going down into his hand with feelings of weakness of his hands. We believe this to be the source of his symptoms. Obviously the anterior approach was not enough to decompress indirectly the foramen, so we are offering the option of going into do a bilateral C7-T1 foraminotomy to decompress the C8 nerve roots. I showed the patient the intraoperative x-rays that we did at the time of his ACDF to demonstrate just so difficult it was to see past his shoulders at the time of surgery. I explained to him that this obscures our ability to localize with surgery certainly anatomical landmarks which make the surgery possible. We discussed the fact that it may be a possibility that when we get in there and try to localize we can not find where the C7-T1 foramen is, and may have to abort the surgery. He understands that this may be a risk but would like to proceed anyway. Pt was given risk and benefits of surgery including but not limited to infection, hematoma , nerve injury,durotomy, weakness,bowel/bladder injury, persistent pain, inability to complete the surgery due to lack of ability to localize with x-ray as well as the option to continue with conservative treatment and patient wishes to proceed with surgery. Pt is aware they should stop their motrin, aspirin 7 days prior to surgery. He will stop his Trulicity 1 week prior to surgery All questions were answered to the best of our ability. Total amount of time spent in this visit was 20 minutes in discussion of s ymptoms, cervical MRI imaging results and subsequent plan of care Sonny Sawant MD,PhD [facility] Medications: Refilled diclofenac sodium 1% (Voltaren Arthritis Pain) apply to neck/arms as needed 2 grams topical QID 100 grams 0RF Coding Level of Care Code Est Pt Level 3 (09202) Diagnoses Cervical radiculopathy M54.12
== END 2023-09-23 12:53 | disposition home or self-care (01) ==
PROVIDERS: PCP Internal Medicine; Visit Provider Physician Assistant
DX: M54.12 Radiculopathy, cervical region (principal)
CPT/HCPCS: 99024

== ENCOUNTER → 2023-09-23 11:38 | Outpatient (BNVA) | payer MEDICAID, SELFPAY | PROVIDERS: PCP Internal Medicine; Visit Provider Physician Assistant | DX: M54.12 Radiculopathy, cervical region (principal) | CPT/HCPCS: 99212 ==

== ENCOUNTER 2023-10-05 08:33 | Outpatient (AMB) | payer MEDICAID, SELFPAY ==
--- NOTE | 2023-10-05 08:33 | A.OFFVIS_ITS ---
Intake Visit Reasons: 3m follow up (pt can't do video) Intake Note: Patient presents today for a telehealth 3 month follow up. 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 He is seen for the following urologic issues - hypogonadism - lower urinary tract symptoms - erectile dysfunction Telemedicine Evaluation 15 min Consultation [employer] Sean Video attempted Good response to tadalafil 5 mg daily Would like to continue Three-month follow-up lab work for hypogonadism Lower urinary tract symptoms Progressive Current therapy Flomax Hypogonadism Long-term usage of testosterone gel Switched over to injectable 2020 Injection day Tuesday Laboratory day Tuesday Laboratories - 11/29 T 1000, hematocrit 42.9, PSA 0.43, 06/02 T 720 P 0.53 H 39, 11/30 536 0.7 44, 07/01 T 530 P 0.9 H 46, 01/01 T 825 P 1.4 H 47, 07/02 T 460 P0.5 42 Patient Peyronie disease which is asymptomatic since 09/27/2019? [facility] Medical History SOB (shortness of breath) COPD (chronic obstructive pulmonary disease) TIA (transient ischemic attack) Stroke Steatosis of liver Osteoarthritis Lyme disease Infection due to Escherichia coli Hyperlipidemia Hyperkalemia Pyelonephritis HTN (hypertension) Diverticulosis Cervical disc disorder Acute kidney injury Back pain Asthma Type II diabetes mellitus Peyronie's disease Erectile dysfunction due to diseases classified elsewhere Enlarged prostate with lower urinary tract symptoms (LUTS) Other obstructive and reflux uropathy Rotator cuff impingement syndrome of left shoulder Elevated PSA Surgical History H/O colonoscopy Hx of appendectomy History of surgery Family History Father No problems noted. Mother No problems noted. Social History Are you a primary nurse care manager to a significant other at home: No Do you presently have visiting nurse or other home services: No Alcohol intake: never Patient Tobacco Use Status: Current everyday Tobacco user Tobacco use type: Cigarette Cigarette Packs Per Day: 5 Cigarettes Per Day: 3 Current occupational status: retired Current occupation: right handed Review of Systems Const All systems reviewed & are unremarkable except as noted in HPI and below Reports no additional complaints Resp Reports no additional complaints GI Reports no additional complaints Reports as per HPI Musc Reports no additional complaints Physical Exam Telemedicine evaluation Appropriate responses Regular breathing rate and rhythm HEENT Head: Yes normal to inspection Ears: hearing grossly normal bilaterally Eyes General: appearance normal, both eyes and all related structures Neck Neck: Yes normal visual inspection Chest Chest palpation & inspection: normal inspection of the chest Resp Effort & Inspection: normal respiratory effort and able to speak in complete sentences Telehealth Telehealth Telehealth Platform: [employer] Location of provider rendering services: practice address Location of patient: address on file Patient Identification confirmed using: Name, : Yes Telehealth method: video Patient verbally consented to treatment: Yes Patient verbally consented to billing insurance company: Yes Patient informed of any privacy concerns related to visit: Yes Minutes spent on Phone/Video with Pt.: 15 Assessment & Plan Assessment & Plan (1) Erectile dysfunction associated with type 2 diabetes mellitus: Code(s): E11.69 - Type 2 diabetes mellitus with other specified complication; N52.1 - Erectile dysfunction due to diseases classified elsewhere Category: Medical (2) Hypogonadism in male: Code(s): E29.1 - Testicular hypofunction Category: Medical Plan Three-month follow-up lab work hypogonadism Orders: Orders Testosterone, Total 3 Months E29.1 - Testicular hypofunction Prostate Specific Antigen 3 Months E29.1 - Testicular hypofunction Complete Blood Count no Diff 3 Months E29.1 - Testicular hypofunction Medications: Refilled 2 tadalafil 5 mg PO DAILY 90 days 90 tabs 1RF sexual activity E11.69 - Type 2 diabetes mellitus with other specified complication, N52.1 - Erectile dysfunction due to diseases classified elsewhere Patient Instructions: Imaging studies, laboratory and physical exam results were discussed and reviewed in detail. No major barriers to patient understanding were identified. An opportunity to ask questions regarding the treatment plan was provided. All questions were answered. The patient expressed understanding and agreement with the above treatment plan. The patient is aware they should contact our office by phone for worsening of their current condition or the appearance of new urologic symptoms. Compliance is encouraged with any medications and followup testing that is ordered. It is a privilege to participate in the urologic care of your patient. If you have any questions or concerns regarding treatment for the above conditions, or other urologic issues, please do not hesitate to contact me. The office telephone contact is [phone]. This note is constructed using voice recognition software. While every effort has been made to ensure accuracy tie mill operator errors may have been included. Yours sincerely, Dr Norberto Dover MD, [facility] [place] - Urology Providers of Expert, Compassionate Care for the Genitourinary System Coding Level of Care Code Tele Est Pt Level 3 (96299) Diagnoses Erectile dysfunction associated with type 2 diabetes mellitus E11.69; N52.1 Hypogonadism in male E29.1
== END 2023-10-05 09:48 | disposition home or self-care (01) ==
LOC: HO.HUSH 08:33
PROVIDERS: PCP Internal Medicine; Referring Provider Internal Medicine; Visit Provider Urology
DX: E11.69 Type 2 diabetes mellitus with other specified complication (principal); N52.1 Erectile dysfunction due to diseases classified elsewhere; E29.1 Testicular hypofunction
CPT/HCPCS: 99213

== ENCOUNTER → 2023-10-05 08:33 | Outpatient (BNVA) | payer MEDICAID, SELFPAY | PROVIDERS: PCP Internal Medicine; Visit Provider Urology ==

== ENCOUNTER 2023-11-10 08:08 | Day surgery (SDC) | payer MEDICAID, SELFPAY ==
[2023-11-02 15:51] VITALS: BMI 31.0
--- NOTE | 2023-11-09 08:41 | P.CONAN_ITS ---
Documented by User: Johana Antony NP 11/09/23 08:44 HPI - Anesthesia Eval Consult details Narrative: 58yo M for Bilateral C7-T1 Posterior Foraminal Decompression s/p Ant Cerv Discectomy w/ fusion 06/2023 with GA-ETT 7 Medically cleared by PCP prior to cervical procedure Hx of CKD 2 and resolved JENI. Followed by [facility]. Last office visit 11/2022 and was stable Anesthesia Pre-Procedure Meds Is the patient on any of the following meds?: GLP1/DPP4 PMFSH Active Problems Active Problems: All Active Problems Cervical radiculopathy (Acute) S/P cervical spinal fusion (Acute) Erectile dysfunction associated with type 2 diabetes mellitus (Acute) Supraglottic mass (Acute) Cervical spondylosis with myelopathy and radiculopathy (Acute) History of fusion of cervical spine (Acute) Muscle wasting and atrophy, not elsewhere classified, right hand (Acute) Muscle wasting and atrophy, not elsewhere classified, left hand (Acute) Numbness and tingling in both hands (Acute) Dupuytren's contracture of left hand (Acute) Impingement syndrome of right shoulder (Acute) Periscapular pain (Acute) Hypogonadism in male (Acute) Type II diabetes mellitus (Acute) Peyronie's disease (Acute) Past Medical History Medical History SOB (shortness of breath) COPD (chronic obstructive pulmonary disease) TIA (transient ischemic attack) Stroke Steatosis of liver Osteoarthritis Lyme disease Infection due to Escherichia coli Hyperlipidemia Hyperkalemia Pyelonephritis HTN (hypertension) Diverticulosis Cervical disc disorder Acute kidney injury Back pain Asthma Type II diabetes mellitus Peyronie's disease Erectile dysfunction due to diseases classified elsewhere Enlarged prostate with lower urinary tract symptoms (LUTS) Other obstructive and reflux uropathy Rotator cuff impingement syndrome of left shoulder Elevated PSA Family History Family History Father No problems noted. Mother No problems noted. Family history of problems with anesthesia: No Surgical History Surgical History Hx of cervical spine surgery (06/28/23) H/O colonoscopy Hx of appendectomy History of surgery History of Problems with Anesthesia: No Social History Social History Household Members: Significant Other Housing: Apartment Are you a primary animal care specialist to a significant other at home: No Do you presently have visiting nurse or other home services: No Alcohol intake: never Patient Tobacco Use Status: Current everyday Tobacco user Tobacco use type: Cigarette Cigarettes Per Day: 10 Use of substances other than those prescribed or required for medical reasons: No Have you been hit, kicked, punched, or otherwise hurt by someone within the past year? If so, by whom?: No Are you DNR?: No Advance Directives: No Advance Directives Information Provided: Yes Advance Directives on File: No Healthcare Proxy: No Recently lost weight without trying: No Nutrition Risks: No Nutritional Risk Poor oral hygiene: No Current occupational status: retired Current occupation: right handed Meds Allergies Allergy/AdvReac Type Severity Reaction Status Date / Time morphine [MORPHINE] Allergy Unknown NAUSEA, Verified 10/05/23 08:33 nausea and vomiting Home Medications ?Medication ?Instructions ?Recorded ?Confirmed ?Last Taken ?Type albuterol sulfate 90 mcg/actuation 2 puff PO QID PRN Shortness Of 06/17/21 11/02/23 Unknown History aerosol inhaler (ProAir HFA) Breath Or Wheezing atorvastatin 10 mg tablet 10 mg PO DAILY@1700 06/17/21 11/02/23 Unknown History blood sugar diagnostic (FreeStyle #10 ea 06/17/21 07/06/23 Unknown History Lite Strips) dulaglutide 1.5 mg/0.5 mL 1.5 mg subcut QWEEK 06/17/21 11/02/23 05/29/23 History subcutaneous pen injector (Trulicity) fluticasone propionate 50 1 spray intranasal BID PRN Allergy 06/17/21 11/02/23 Unknown History mcg/actuation nasal Symptoms spray,suspension gabapentin 100 mg capsule 200 mg PO TID 06/17/21 11/02/23 Unknown History gabapentin 300 mg capsule 300 mg PO BEDTIME 06/17/21 11/02/23 Unknown History lisinopril 10 mg tablet 10 mg PO DAILY 06/17/21 11/02/23 Unknown History metformin 1,000 mg tablet 1,000 mg PO BID 06/17/21 11/02/23 Unknown History syringe with needle 1 mL 25 gauge #1 ea 06/17/21 07/06/23 Unknown History x 5/8 (UltiCare) aspirin 81 mg tablet,delayed 81 mg PO DAILY 06/22/23 11/02/23 11/02/23 History release cholecalciferol (vitamin D3) 10 10 mcg PO DAILY 06/22/23 11/02/23 Unknown History mcg (400 unit) capsule (Vitamin D3) gemfibrozil 600 mg tablet 600 mg PO BID 06/22/23 11/02/23 Unknown History tamsulosin 0.4 mg capsule 0.4 mg PO DAILY@1700 06/22/23 11/02/23 Unknown History Exam Height,Weight and Vital Signs: Height 5 ft 9 in Weight 95.254 kg Narrative Narrative: EKG Per clearance note 06/2023 SA with RSR in V1 and 2, late transition in V6 No acute ischemic changes Assessment and Plan Assessment Anesthesia Assessment: Chart Reviewed Final Anesthetic Review Family History of Problems with Anesthesia: No History of Problems with Anesthesia: No Documented by User: Leeann Rodrigues MD 11/10/23 09:39 [facility] Past Medical History Medical History SOB (shortness of breath) COPD (chronic obstructive pulmonary disease) TIA (transient ischemic attack) Stroke Steatosis of liver Osteoarthritis Lyme disease Infection due to Escherichia coli Hyperlipidemia Hyperkalemia Pyelonephritis HTN (hypertension) Diverticulosis Cervical disc disorder Acute kidney injury Back pain Asthma Type II diabetes mellitus Peyronie's disease Erectile dysfunction due to diseases classified elsewhere Enlarged prostate with lower urinary tract symptoms (LUTS) Other obstructive and reflux uropathy Rotator cuff impingement syndrome of left shoulder Elevated PSA Family History Family History Father No problems noted. Mother No problems noted. Surgical History Surgical History Hx of cervical spine surgery (06/28/23) H/O colonoscopy Hx of appendectomy History of surgery Social History Social History Household Members: Significant Other Housing: Apartment Are you a primary animal care specialist to a significant other at home: No Do you presently have visiting nurse or other home services: No Alcohol intake: never Patient Tobacco Use Status: Current everyday Tobacco user Tobacco use type: Cigarette Cigarettes Per Day: 10 Use of substances other than those prescribed or required for medical reasons: No Have you been hit, kicked, punched, or otherwise hurt by someone within the past year? If so, by whom?: No Are you DNR?: No Advance Directives: No Advance Directives Information Provided: Yes Advance Directives on File: No Healthcare Proxy: No Recently lost weight without trying: No Nutrition Risks: No Nutritional Risk Poor oral hygiene: No Current occupational status: retired Current occupation: right handed Meds Allergies Allergy/AdvReac Type Severity Reaction Status Date / Time morphine [MORPHINE] Allergy Unknown NAUSEA, Verified 10/05/23 08:33 nausea and vomiting Home Medications ?Medication ?Instructions ?Recorded ?Confirmed ?Last Taken ?Type albuterol sulfate 90 mcg/actuation 2 puff PO QID PRN Shortness Of 06/17/21 11/02/23 Unknown History aerosol inhaler (ProAir HFA) Breath Or Wheezing atorvastatin 10 mg tablet 10 mg PO DAILY@1700 06/17/21 11/02/23 Unknown History blood sugar diagnostic (FreeStyle #10 ea 06/17/21 07/06/23 Unknown History Lite Strips) dulaglutide 1.5 mg/0.5 mL 1.5 mg subcut QWEEK 06/17/21 11/02/23 05/29/23 History subcutaneous pen injector (Trulicity) fluticasone propionate 50 1 spray intranasal BID PRN Allergy 06/17/21 11/02/23 Unknown History mcg/actuation nasal Symptoms spray,suspension gabapentin 100 mg capsule 200 mg PO TID 06/17/21 11/02/23 Unknown History gabapentin 300 mg capsule 300 mg PO BEDTIME 06/17/21 11/02/23 Unknown History lisinopril 10 mg tablet 10 mg PO DAILY 06/17/21 11/02/23 Unknown History metformin 1,000 mg tablet 1,000 mg PO BID 06/17/21 11/02/23 Unknown History syringe with needle 1 mL 25 gauge #1 ea 06/17/21 07/06/23 Unknown History x 5/8 (UltiCare) aspirin 81 mg tablet,delayed 81 mg PO DAILY 06/22/23 11/02/23 11/02/23 History release cholecalciferol (vitamin D3) 10 10 mcg PO DAILY 06/22/23 11/02/23 Unknown History mcg (400 unit) capsule (Vitamin D3) gemfibrozil 600 mg tablet 600 mg PO BID 06/22/23 11/02/23 Unknown History tamsulosin 0.4 mg capsule 0.4 mg PO DAILY@1700 06/22/23 11/02/23 Unknown History Exam Airway Mallampati Class: III TM Dist: >3cm Neck ROM: Limited Loose/Missing/Broken Teeth: Yes and Upper Heart: RRR Lungs: CTA Assessment and Plan Assessment Anesthesia Assessment: Anesthesia Plan Discussed Final Anesthetic Review NPO: Yes ASA Class: III Final Preanesthetic Review: Meds/Allgs Chart Reviewed, Consent Obtained/Reviewed and Anes Risks/Benef Reviewed Patient Risk: Intermediate Procedure Risk: Intermediate Anesthetic Plan Anesthetic Plan: GA Disposition: Standard PACU
[2023-11-10] VITALS (14 sets, daily range): BP systolic 126–172; BP diastolic 56–108; PULSE 75–87; RESP 10–20; TEMP 36.3–36.5; O2SAT 93–100; BMI 30.3
--- NOTE | ~2023-11-10 | FL_ITS ---
EXAMINATION: XR FLUOROSCOPY WITH IMAGES CLINICAL INFORMATION: C7-T1 posterior foraminal decompression bilateral. Left radiculopathy. COMPARISON: MR cervical 09/15/2023. TECHNIQUE: Fluoroscopy provided to: Dr. Sawant Fluoroscopy time: 8 seconds DAP: 0.6641 Gycm2 Images: 2 FINDINGS: 2 oblique spot images cervical spine obtained demonstrate retractors and surgical probe at the C7-T1 foraminal level. Anterior fusion hardware in place C4-T1 with discectomies as previously detailed. FL/FL guidance in OR IMPRESSION: Fluoroscopic guidance. Please refer to the full operative report for details. Electronically signed by: Derrell Kim MD 01/05/2024 03:29 PM EDT
--- NOTE | 2023-11-10 07:37 | PM.DS ---
DS: Providers Provider Date of Service: 11/10/23 Date of discharge: 11/10/23 Primary care physician: Louis Max MD Admitting clinician: Bryson Sawant DS: Diagnosis Discharge Diagnosis (1) Cervical radiculopathy: Status: Acute DS: Summary Time Attestation Discharge Coordination Time (in mins): 6 Quality: Safe Use of Opioids Does Pt have an Active Cancer Diagnosis on the Problem List?: No Quality: Stroke Does the patient have a stroke diagnosis?: No Physical Exam Vital Signs: Vital Signs: BMI result Body Mass Index 31.0 Discharge Plan Discharge Patient Disposition: Home, Self-Care Referrals: Louis Max MD [Primary Care Provider] - 1 Week Discharge Medications: New oxycodone 5 mg tablet 5 mg PO Q4H PRN (Reason: pain) Qty: 30 0RF Rx Instructions: Partial Fill upon patient request. doxycycline monohydrate 100 mg capsule 100 mg PO BID Qty: 6 0RF methocarbamol 500 mg tablet 500 mg PO TID Qty: 30 1RF Continued (DME) insulin syringe-needle U-100 1 mL 25 gauge x 5/8 syringe See Rx Instructions .MEDSUPPLY Qty: 30 0RF Rx Instructions: As directed (DME) needle (disp) 22 G 22 gauge x 1 1/2 needle See Rx Instructions .MEDSUPPLY Qty: 50 0RF Rx Instructions: As directed tadalafil 5 mg tablet 5 mg PO DAILY 90 Days Qty: 90 1RF diclofenac sodium 1 % gel 2 g topical QID PRN (Reason: pain) Qty: 100 0RF tamsulosin 0.4 mg capsule 0.4 mg PO DAILY@1700 gemfibrozil 600 mg Tablet 600 mg PO BID cholecalciferol (vitamin D3) [Vitamin D3] 10 mcg (400 unit) Capsule 10 mcg PO DAILY albuterol sulfate [ProAir HFA] 90 mcg/actuation HFA aerosol inhaler 2 puff PO QID PRN (Reason: Shortness Of Breath Or Wheezing) atorvastatin 10 mg tablet 10 mg PO DAILY@1700 (DME) FreeStyle Lite Strips Strip See Rx Instructions Not Applicable TID Qty: 10 Rx Instructions: As directed lisinopril 10 mg tablet 10 mg PO DAILY metformin 1,000 mg tablet 1,000 mg PO BID gabapentin 300 mg capsule 300 mg PO BEDTIME Trulicity 1.5 mg/0.5 mL pen injector 1.5 mg subcut QWEEK Patient Comments: patient takes every Tuesday fluticasone propionate 50 mcg/actuation spray,suspension 1 spray intranasal BID PRN (Reason: Allergy Symptoms) gabapentin 100 mg capsule 200 mg PO TID (DME) UltiCare 1 mL 25 gauge x 5/8 syringe See Rx Instructions .ROUTE DIRECTED Qty: 1 Rx Instructions: As directed testosterone cypionate [Depo-Testosterone] 200 mg/mL oil 80 mg subcut QWEEK 28 Days Qty: 2 5RF Patient Comments: patient takes every Tuesday Held aspirin 81 mg Tablet,Delayed Release (Dr/Ec) 81 mg PO DAILY Hold Instructions: Resume on 11/17/23. You may resume 7 days after surgery Discharge Orders: Discharge Order (Routine); Ordered 11/10/23 Ordered By: Sonny Garcia Diet: Advance to usual diet Activity on Discharge: As tolerated Activity Restrictions/Additional Instructions: After your spinal surgery we ask you to observe the following restrictions/guidelines: Activity: It is normal to feel some discomfort as you increase your activity, but that will improve with time. We ask you avoid heavy lifting or acitivities that cause pain. As a general rule, 8lbs is a safe limit for lifting right after surgery. Walk as much as you feel comfortable but not to exhaustion. You will feel extra tired the first few days after surgery. Stay well hydrated. It is OK to walk up and down stairs You may return to driving when you are off narcotics (such as vicodin, oxycodone, dilaudid, etc), and you are back to normal functional capacity. If you have any concerns please check with office before driving. Return to work is specific to each patient and each surgery, so please speak with your doctor/PA at first follow up. Please bring paperwork such as FMLA at that time if you need it filled out. Medications: You may resume aspirin 1 week after surgery We give you a 3 day prescription for antiobiotics after surgery as a precaution. The medication is called doxycycline. For optimum pain control, it is best to start with a combination of 500 mg of Tylenol every 4 hours with 600 mg of Motrin every 8 hours, and use narcotics as needed in between for breakthrough pain. We also gave you a Rx for muscle spasm called methocarbamol. We will give you a short supply of narcotics after surgery (usually one weeks worth). If you need more please call the office but do not use more than prescribed. You will need to give our office 48 hours notice if you need narcotics refilled and we do not fill narcotics on weekends or evenings. If you are on a narcotic, it is a good idea to take a stool softener such as colace or senna to avoid constipation If you take blood thinner such as aspirin, Plavix, Coumadin, Effient, Eliquis etc for conditions such as Afib, DVT, Pulmonary embolus, coronary disease, stents etc please speak with your surgeon about specific details as to when you can resume these medications. You can resume NSAIDs on post op day 1 (eg: Motrin, Naproxen, etc). Follow up: Please call the office, , after surgery to arrange a 3 week follow up for wound check. Wound Care: You may remove your dressing on the first day after surgery. ?You may ?leave open to air. You have whitney in your incision that need to be removed in 10-14 days. pleaes call the office to arrange that appointment IT IS NORMAL FOR THE WOUND TO OOZE OR BE BLOODY FOR A FEW DAYS AFTER SURGERY. ?IF THIS HAPPENS JUST PLACE NEW DRESSING OVER IT TO AVOID STAINING CLOTHES. You may shower on post op day # 1 We ask that you do not let the water soak the wound. If it does get wet, just towel dry lightly. Please do not scrub your incision or place any type of chemical/ointment on the wound. No tub baths, pools or jacuzzis for one month. If you have any leaking or redness from your wound, or fevers, please call office Print Language: Ukrainian
[2023-11-10] MEDS: Lactated Ringers 1,000 ML 100 ML IVCONT (08:50)
[2023-11-10 08:53] LABS: Hematocrit 43.4 % (42.0-52.0); Mean Corpuscular HGB Conc 34.6 g/dl (31.0-36.0); Mean Corpuscular Hemoglobin 32.5 pg (27.0-33.0); Mean Corpuscular Volume 94.1 fL (80.0-98.0); Mean Platelet Volume 9.1 fL (9.4-12.4); Platelet Count 250 X10*3/uL (160-400); Red Blood Count 4.61 X10*6/uL (4.60-5.80); Red Cell Distribution Width 12.8 % (11.0-16.0); White Blood Count 7.9 X10*3/uL (4.8-10.8)
[2023-11-10 08:55] LABS: Glucose, Whole Blood 170 mg/dL (60-115)
[2023-11-10] MEDS: Gabapentin 300 MG CAPSULE PO (08:58)
[2023-11-10] MEDS: methocarbamoL 750 MG TABLET PO (08:58)
[2023-11-10] MEDS: Albuterol Sulfate (0.083%) 2.5 MG/3 ML VIAL.NEB INHALE (09:00)
[2023-11-10 09:03] LABS: Alanine Aminotransferase 17 U/L (0-40); Albumin Level 4.2 g/dL (3.5-5.0); Alkaline Phosphatase 89 U/L (39-117); Anion Gap 16 (12-20); Aspartate Amino Transferase 19 U/L (5-37); Bilirubin Total 0.3 mg/dL (0.0-1.0); Blood Urea Nitrogen 13 mg/dL (9-16); Calcium 10.1 mg/dL (8.4-10.2); Carbon Dioxide 22 mmol/L (22-29); Chloride 107 mmol/L (96-108); Creatinine Clr Calc Pharmacy 99.3; Estimated Glomerular Filt Rate > 60; Glucose Fasting 168 mg/dL (60-99); Potassium 4.8 mmol/L (3.3-5.1); Sodium 140 mmol/L (135-145)
--- NOTE | 2023-11-10 11:14 | MHC.SHP ---
Pre-Procedural Eval Section A - 24 Hr Update-Section A only Date of Service: 11/10/23 The patient is an INPATIENT: No Changes since office visit: No Cold of Flu in the past 2 weeks, No New Medical Problems, No Changes in Medication and No Patient answered all questions The patient has been examined within 24 hours of the surgical procedure. The History & Physical has been completed within 30 days and I have reviewed it.: No Section B - Complete if H&P > 30 days Chief Complaint: Radiculopathy, cervical region Allergies: Allergies Allergy/AdvReac Type Severity Reaction Status Date / Time morphine [MORPHINE] Allergy Unknown NAUSEA, Verified 10/05/23 08:33 nausea and vomiting Review of Systems Sugical H&P ROS: Negative: Constitution, Cardiovascular, Respiratory, Neurological, Psychiatric, Hem-Onc, Allergic/Immunologic, Gastrointestinal, Genitourinary, Musculoskeletal, Integumentary, Endocrine and Eyes/Ears/Nose/Throat Exam Surgical H&P Exam: Normal: HEENT, Normal: Heart, Normal: Lungs, Normal: Extremities, Normal: Abdomen, Normal: Skin and Normal: Neurological (awake, alert,oriented x 3 ) Plan Diagnosis/Plan: Unchanged bilat C7-T1 foraminotomies Time Spent With Patient Time: Total time managing care of this patient today ___6_ minutes.
--- NOTE | 2023-11-10 13:44 | P.OP_ITS ---
Operative Note Operative Note Date of Service: 11/10/23 Narrative: Preoperative Diagnosis: Bilateral C8 cervical radiculopathy Operation: Bilateral C7-T1 laminotomy and C8 foraminotomy with microscope Consent Informed Consent was obtained for this operation. I have explained the nature, purpose and benefits of the operation. I have discussed the risks and benefit of the operation including possible complications or adverse events with patient/family. Alternative(s) were discussed with the patient with their relative benefits and risks as well as the consequences of not accepting the operation were included in obtaining consent. Surgeon: REBA LORENZ MD, PHD Procedure Assisted By: oswaldo Luna Description of Procedure The patient underwent an anterior diskectomy and fusion C7-T1 but unfortunately due to the amount of degeneration in the patient habitus insufficient decompression of the foramina was obtained confirmed with repeat MRI. The patient continues to suffer from a C8 bilateral radiculopathy with the left side is more affected than the right side. The patient was offered a decompression. The procedure complications were explained. The patient was consented. The patient was brought to the operating room and [facility]otracheally intubated. [facility] in prone position on the gel rolls. Prep and drape was done followed by timeout. a midcervical incision was made. Dissection was carried down the midline to avoid blood loss. The paravertebral muscles were released to expose the C7, T1 laminae bilaterally in preparation for the foraminotomies. The microscope was brought in. I started on the left side. A small C7-T1 laminotomy was done. Another intraoperative x-rays obtained and confirmed with preoperative imaging and to the best of my knowledge this was the location of the C8 foramen. The origin of the C8 nerve was identified. The C8 nerve root was clearly inflammation. The inferior articular process of C7 was drilled down after which with a 1. Kerrison a foraminotomy was done to decompress the nerve root. A nerve hook could be easily passed over the nerve root a sign of adequate decompression. The nerve returned to its original yellowish color. Then I turned my attention to the contralateral side. A right C7-T1 laminotomy and the C8 nerve root was decompressed. The physician budget assistant performed hemostasis and closed incision. whitney were used to approximate the incision. An op-site with tegaderm was used to cover the incision. All sponge needle counts were correct. Patient was extubated and transported in stable is to recovery room. Anesthesia: General Estimated Blood Loss (ml): 25 mL Duration of Surgery: Under 60 Minutes Postoperative Plan: Discharge to home
[2023-11-10] MEDS: fentaNYL citrate/PF 100 MCG/2 ML VIAL 25 MCG IVPUSH ×2 (14:05→14:11)
[2023-11-10] MEDS: ondansetron HCL 4 MG/2 ML VIAL IVPUSH (14:21)
[2023-11-10] MEDS: oxyCODONE HCl Immed Release 5 MG TABLET PO (14:48)
[2023-11-10 15:29] LABS: Glucose, Whole Blood 235 mg/dL (60-115)
== END 2023-11-10 16:05 | disposition home or self-care (01) ==
LOC: HO.SSS 08:08
PROVIDERS: Nurse Practitioner; PCP Internal Medicine; Visit Provider Neurological Surgery
PROC: (CPT 63045; principal; 2023-11-10 11:30)
DX: M54.12 Radiculopathy, cervical region (principal); M79.602 Pain in left arm; M79.601 Pain in right arm; M62.542 Muscle wasting and atrophy, not elsewhere classified, left hand; M62.541 Muscle wasting and atrophy, not elsewhere classified, right hand; I10 Essential (primary) hypertension; E11.9 Type 2 diabetes mellitus without complications; Z79.1 Long term (current) use of non-steroidal anti-inflammatories (NSAID); Z79.82 Long term (current) use of aspirin; Z79.85 Long-term (current) use of injectable non-insulin antidiabetic drugs; Z88.5 Allergy status to narcotic agent; Z98.890 Other specified postprocedural states; F17.210 Nicotine dependence, cigarettes, uncomplicated
CPT/HCPCS: 63045; 63048; 36415; 80053; 82947; 85027; 94640; J0131; J0690; J1100; J1170; J2250; J2405; J2704; J3010

== ENCOUNTER → 2023-11-10 08:08 | Outpatient (BNV) | payer MEDICAID, SELFPAY | PROVIDERS: PCP Internal Medicine; Visit Provider Neurological Surgery | DX: M54.12 Radiculopathy, cervical region (principal) | CPT/HCPCS: 63045; 99499 ==

== ENCOUNTER 2023-11-28 09:53 | Outpatient (AMB) | payer MEDICAID, SELFPAY ==
--- NOTE | 2023-11-28 10:29 | A.SPINEOV_ITS ---
Intake Visit Reasons: Staple removal Intake Note: Mr. Bowman is here today to have staple removed. Marinator Required: No Allergies morphine [MORPHINE] Allergy (Unknown, Verified 11/28/23 10:30) NAUSEA, nausea and vomiting Assessment & Plan Assessment & Plan (1) Cervical radiculopathy: Code(s): M54.12 - Radiculopathy, cervical region Category: Medical Plan Mr bowman came in today for his 1st postoperative visit. We did a bilateral C7- T1 foraminotomy little over 2 weeks ago. He has had some definitive improvement in his arm pain which he is happy about. He is still getting some pain down along the left part of his hand. He reports no trouble with his wound. I r emoved his whitney today without incident. His wound is healing well with no signs of infection. We discussed activity guidelines, restrictions and expectations after cervical foraminotomy. I will see him back in 6 weeks. Sonny Sawant MD, PhD [facility] Coding Level of Care Code Global (92058) Diagnoses Cervical radiculopathy M54.12
== END 2023-11-28 11:14 | disposition home or self-care (01) ==
PROVIDERS: PCP Internal Medicine; Visit Provider Physician Assistant
DX: M54.12 Radiculopathy, cervical region (principal)
CPT/HCPCS: 99024

== ENCOUNTER → 2023-11-28 09:53 | Outpatient (BNVA) | payer MEDICAID, SELFPAY | PROVIDERS: PCP Internal Medicine; Visit Provider Physician Assistant | DX: Z48.02 Encounter for removal of sutures (principal); Z86.69 Personal history of other diseases of the nervous system and sense organs | CPT/HCPCS: 99212 ==

== ENCOUNTER 2024-01-26 12:18 | Outpatient (REF) | payer MEDICAID, SELFPAY ==
[2024-01-26 13:50] LABS: Estimated Average Glucose 169 mg/dL; Hemoglobin A1C 218.7803 umol/L; Hemoglobin A1c % 7.5 % (<6.0)
[2024-01-26 14:10] LABS: Alanine Aminotransferase 22 U/L (0-40); Albumin Level 4.2 g/dL (3.5-5.0); Alkaline Phosphatase 86 U/L (39-117); Anion Gap 12 (12-20); Aspartate Amino Transferase 18 U/L (5-37); Bilirubin Total 0.2 mg/dL (0.0-1.0); Blood Urea Nitrogen 13 mg/dL (9-16); Carbon Dioxide 26 mmol/L (22-29); Chloride 107 mmol/L (96-108); Estimated Glomerular Filt Rate > 60; Glucose Random 173 mg/dL (60-115); Potassium 4.2 mmol/L (3.3-5.1); Sodium 141 mmol/L (135-145); Total Protein 6.8 g/dL (6.5-8.0)
[2024-01-26 14:12] LABS: Vitamin D 25-OH Total 24.4 ng/mL (>30)
[2024-01-26 14:16] LABS: Basophils Absolute Auto 0.1 X10*3/uL (0.0-0.2); Basophils Percent Auto 0.8 % (0-2); Eosinophils Absolute Auto 0.1 X10*3/uL (0.0-0.4); Eosinophils Percent Auto 1.5 % (0-4); Hematocrit 40.9 % (42.0-52.0); Hemoglobin 14.3 g/dl (14.0-18.0); Imm Gran Abs Auto 0.17 X10*3/uL (0.00-0.03); Imm Gran Pct Auto 2.6 % (0.0-0.4); Lymphocytes Absolute Auto 1.6 X10*3/uL (1.2-4.9); Lymphocytes Percent Auto 24.7 % (20-40); MANUAL DIFF FLAG NO; Mean Corpuscular Hemoglobin 32.1 pg (27.0-33.0); Mean Corpuscular Volume 91.9 fL (80.0-98.0); Mean Platelet Volume 9.7 fL (9.4-12.4); Monocytes Absolute Auto 0.6 X10*3/uL (0.1-1.2); Monocytes Percent Auto 8.6 % (2-11); Neutrophils Percent Auto 61.8 % (45-73); Platelet Count 259 X10*3/uL (160-400); Red Blood Count 4.45 X10*6/uL (4.60-5.80); Red Cell Distribution Width 13.8 % (11.0-16.0); White Blood Count 6.5 X10*3/uL (4.8-10.8)
[2024-01-26 14:17] LABS: Hematocrit 40.9 % (42.0-52.0); Hemoglobin 14.3 g/dl (14.0-18.0); Mean Corpuscular Hemoglobin 32.1 pg (27.0-33.0); Mean Corpuscular Volume 91.9 fL (80.0-98.0); Mean Platelet Volume 9.7 fL (9.4-12.4); Platelet Count 259 X10*3/uL (160-400); Red Blood Count 4.45 X10*6/uL (4.60-5.80); Red Cell Distribution Width 13.8 % (11.0-16.0); White Blood Count 6.5 X10*3/uL (4.8-10.8)
[2024-01-26 14:18] LABS: Prostate Specific Antigen 0.85 ng/mL (<0.05-4.0)
[2024-02-01 11:48] LABS: Testosterone, Total 303 ng/dL (250-1100)
== END 2024-01-26 12:19 | disposition home or self-care (01) ==
LOC: HO.10HDL 12:18
PROVIDERS: Referring Provider Internal Medicine; Visit Provider Urology
DX: Z12.5 Encounter for screening for malignant neoplasm of prostate (principal); E29.1 Testicular hypofunction; E11.9 Type 2 diabetes mellitus without complications; J44.9 Chronic obstructive pulmonary disease, unspecified; I48.0 Paroxysmal atrial fibrillation; N18.9 Chronic kidney disease, unspecified
CPT/HCPCS: 36415; 80053; 82306; 83036; 84153; 84403; 85025; 85027

== ENCOUNTER 2024-02-08 09:50 | Outpatient (REF) | payer MEDICAID, SELFPAY ==
--- NOTE | 2024-02-08 09:52 | EMG_ITS ---
Chief complaint: Shooting pain on forearm especially towards left 3rd to 5th digits, with numbness. Patient says that this severe shooting pain started after surgery in June. Numbness on right 3rd to 5th digits, constant, but without shooting pain. 06/28/2023 C5-6 and C7-T1 anterior diskectomy, arthrodesis and implantation cage; C5-6 and C7-T1 anterior instrumentation, by Dr. Sawant, for cervical myelopathy and radiculopathy due to adjacent degenerative disc disease C5-6 and C7-T1. 11/10/2023 bilateral C7-T1 laminotomy and C8 foraminotomy, by Dr. Sawant, for bilateral C8 cervical radiculopathy. He did say that there is less shooting pain on the left 3rd and 4th digits after. But still continues to have that shooting pain on left 5th digit. Patient has history of diabetes and Lyme disease. Previous ACDF by Dr. Freitas in 2007. Review of EMR, notes from Dr. Rina Bush, 01/13/2022, indicated that patient already had intrinsic hand muscle wasting and weakness at that time. Patient had bilateral numbness and small fingers and weakness in finger abduction bilaterally, left worse than right. No past EMG is available for comparison. Today, noted bilateral FDI and hypothenar muscles atrophy. Noted weakness on bilateral triceps. Referred by: Sonny MEADOWS Reason for referral: Evaluate for radiculopathy versus neuropathy Procedure done: Bilateral upper extremities NCS/EMG Precautions and/or limitations: Previous multiple surgeries on cervical spine- for this reason paraspinal EMG examination deferred, not reliable to show accurate diagnostic evidence evidence The limb temperature was monitored continuously and remained between 32-36 degrees C during the performance of the NCS. Ulnar motor NCS was performed with moderate elbow flexion between 70-90 degrees, with across-elbow distance of 10 cm. Nerve Conduction Studies Anti Sensory Summary Table ?Stim Site NR Onset (ms) Norm Onset (ms) Peak (ms) Norm Peak (ms) O-P Amp (?V) Norm O-P Amp Site1 Site2 Delta-0 (ms) Dist (cm) Lencho (m/s) Norm Lencho (m/s) Left Median Anti Sensory (2nd Digit) Wrist ? 3.3 4.2 <3.6 13.3 >10 Wrist 2nd Digit 3.3 14.0 42 Right Median Anti Sensory (2nd Digit) Wrist ? 3.4 4.2 <3.6 21.4 >10 Wrist 2nd Digit 3.4 14.0 41 Left Radial Anti Sensory (Thumb) Forearm ? 2.3 3.0 <3.1 10.6 Forearm Thumb 2.3 0.0 Right Radial Anti Sensory (Thumb) Forearm ? 1.3 1.9 <3.1 21.6 Forearm Thumb 1.3 0.0 Left Ulnar Anti Sensory (5th Digit) Wrist ? 2.9 3.9 <3.7 5.3 >15.0 Wrist 5th Digit 2.9 14.0 48 Right Ulnar Anti Sensory (5th Digit) Wrist ? 2.8 3.4 <3.7 2.6 >15.0 Wrist 5th Digit 2.8 14.0 50 Motor Summary Table ?Stim Site NR Onset (ms) Norm Onset (ms) O-P Amp (mV) Norm O-P Amp iAmp (mV) Amp (1st) (%) Site1 Site2 Delta-0 (ms) Dist (cm) Lencho (m/s) Norm Lencho (m/s) Left Median Motor (Abd Poll Brev) Wrist ? 4.8 <3.9 8.9 >4.5 10.7 100.0 Elbow Wrist 5.1 24.0 47 >45 Elbow ? 9.9 7.4 9.1 83.1 Right Median Motor (Abd Poll Brev) Wrist ? 4.8 <3.9 10.6 >4.5 14.4 100.0 Elbow Wrist 4.7 23.0 49 >45 Elbow ? 9.5 9.0 11.8 84.9 Left Ulnar Motor (Abd Dig Minimi) Wrist ? 3.5 <3.0 2.0 >5 2.0 100.0 B Elbow Wrist 4.9 21.0 43 >45 B Elbow ? 8.4 1.6 1.7 80.0 A Elbow B Elbow 3.2 10.0 31 >45 A Elbow ? 11.6 1.4 1.6 70.0 Right Ulnar Motor (Abd Dig Minimi) Wrist ? 3.2 <3.0 4.3 >5 5.9 100.0 B Elbow Wrist 4.8 21.0 44 >45 B Elbow ? 8.0 4.0 5.6 93.0 A Elbow B Elbow 2.8 10.0 36 >45 A Elbow ? 10.8 3.8 5.4 88.4 EMG ?Side Muscle Nerve Root Ins Act Fibs Psw Amp Dur Poly Recrt Int Pat Comment Right ExtIndicis Radial (Post Int) C7-8 Incr 1+ 1+ Incr Incr 0 Nml Complete Right Abd Poll Brev Median C8-T1 Incr 1+ 1+ Incr Incr 0 Nml Complete Right FlexCarpiUln Ulnar C8,T1 Nml Nml Nml Nml Nml 0 Nml Complete Right 1stDorInt Ulnar C8-T1 Incr 1+ 1+ Incr Incr 0 Nml Complete Right Biceps Musculocut C5-6 Nml Nml Nml Nml Nml 0 Nml Complete Right Triceps Radial C6-7-8 Nml Nml Nml Incr Nml 1+ Nml Complete Right Deltoid Axillary C5-6 Nml Nml Nml Nml Nml 0 Nml Complete Left 1stDorInt Ulnar C8-T1 Nml Nml Nml Nml Nml 0 Nml Complete Left Biceps Musculocut C5-6 Nml Nml Nml Nml Nml 0 Nml Complete Left Triceps Radial C6-7-8 Nml Nml Nml Incr Incr 0 Reduced Complete Left Deltoid Axillary C5-6 Nml Nml Nml Nml Nml 0 Nml Complete Left FlexCarpiUln Ulnar C8,T1 Nml Nml Nml Nml Nml 0 Nml Complete Left ExtIndicis Radial (Post Int) C7-8 Nml Nml Nml Incr Incr 0 Reduced Complete Left Abd Poll Brev Median C8-T1 Nml Nml Nml Incr Incr 0 Reduced Complete FINDINGS: Left median motor nerve showed prolonged distal latency, normal amplitude and normal conduction velocity. Left ulnar motor nerve showed prolonged distal latency, small amplitude and slow conduction velocity especially across the elbow. Right median motor nerve showed prolonged distal latency, normal amplitude and normal conduction velocity. Right ulnar motor nerve showed prolonged distal latency, small amplitude and slow conduction velocity especially across the elbow. Bilateral median sensory nerves showed prolonged peak latency. Left ulnar sensory nerve showed normal peak latency but small amplitude. Right ulnar sensory nerve showed prolonged peak latency and small amplitude. Bilateral radial sensory nerves tested were within normal. Concentric needle EMG was performed in selected muscles of the bilateral upper extremities. Study revealed signs of electric abnormalities as shown in the table above. Right triceps showed increased duration and amplitude, polyphasic motor units. Right EIP, APB and FDI muscles showed increased insertional activity, PSWs, fibrillations, and increased duration and amplitude. Left triceps showed increased duration and amplitude, reduced recruitment. Left EIP and APB showed increased duration and amplitude, reduced recruitment. IMPRESSION: 1. This is an abnormal study. 2. There is electrodiagnostic evidence for bilateral C8 radiculopathy, both sides show subacute/chronic features, but still more more acutely appearing on left. 3. There is electrodiagnostic evidence for ulnar neuropathy at the elbow, bilateral. 4. There is electrodiagnostic evidence for moderate-severe median neuropathy at the wrist, bilateral. CLINICAL COMMENT: Bilateral subacute/chronic C8 radiculopathy, athough more acutely appearing on left, consistent with symptoms. Past notes from Orthopedics/Hand Surgery 2021 suggest that ulnar neuropathy and median neuropathy are chronic, consistent with findings above. Thank you for your kind referral. Stormy Dickerson MD, SONDRA Board Certified, [place] Board [employer] and Rehabilitation (ABPMR) Board Certified, [place] Board of Electrodiagnostic Medicine (ABEM) CODIN [phone] MTDD
== END 2024-02-08 09:51 | disposition home or self-care (01) ==
LOC: HO.NEURO 09:50
PROVIDERS: PCP Internal Medicine; Visit Provider Physician Assistant
DX: M54.12 Radiculopathy, cervical region (principal)
CPT/HCPCS: 95886; 95911

== ENCOUNTER → 2024-02-08 09:52 | Outpatient (BNV) | payer MEDICAID, SELFPAY | PROVIDERS: PCP Internal Medicine; Visit Provider Physical Medicine & Rehabilitation | DX: G56.13 Other lesions of median nerve, bilateral upper limbs (principal); G56.23 Lesion of ulnar nerve, bilateral upper limbs; M54.12 Radiculopathy, cervical region | CPT/HCPCS: 95886; 95911 ==

== ENCOUNTER 2024-02-28 13:02 | Outpatient (AMB) | payer MEDICAID, SELFPAY ==
--- NOTE | 2024-02-28 13:06 | A.OFFVIS_ITS ---
Intake Visit Reasons: PSA/Testo(set) Intake Note: Patient is present for Telephone PSA/Testosterone follow up Urology Med: Tamsulosin, Testosterone, Tadalafil Antibiotic Allergy: None Blood Thinner: Aspirin LABS: 01/26/24 - Hemoglobin A1C- 7.5(H) - PSA- 0.85 - Testosterone- [address] Required: No Accompanied by: Self / Same As Patient Allergies morphine [MORPHINE] Allergy (Unknown, Verified 02/28/24 13:07) NAUSEA, nausea and vomiting HPI Comments Details: Rao is a pleasant male. He is seen for the following urologic issues - hypogonadism - lower urinary tract symptoms - erectile dysfunction Telemedicine Evaluation 15 min Consultation [employer] Sean Video attempted Slight drop in testosterone Increased to 100 mg weekly May consider pellets Good response to tadalafil 5 mg daily Lower urinary tract symptoms Progressive Current therapy Flomax Hypogonadism Long-term usage of testosterone gel Switched over to injectable 2020 Injection day Tuesday Laboratory day Tuesday Laboratories - 11/29 T 1000, hematocrit 42.9, PSA 0.43, 06/02 T 720 P 0.53 H 39, 11/30 536 0.7 44, 07/01 T 530 P 0.9 H 46, 01/01 T 825 P 1.4 H 47, 07/02 T 460 P0.5 42, 02/01 P 0.4 T300 Patient Peyronie disease which is asymptomatic since 09/27/2019? [facility] Medical History SOB (shortness of breath) COPD (chronic obstructive pulmonary disease) TIA (transient ischemic attack) Stroke Steatosis of liver Osteoarthritis Lyme disease Infection due to Escherichia coli Hyperlipidemia Hyperkalemia Pyelonephritis HTN (hypertension) Diverticulosis Cervical disc disorder Acute kidney injury Back pain Asthma Type II diabetes mellitus Peyronie's disease Erectile dysfunction due to diseases classified elsewhere Enlarged prostate with lower urinary tract symptoms (LUTS) Other obstructive and reflux uropathy Rotator cuff impingement syndrome of left shoulder Elevated PSA Surgical History Hx of cervical spine surgery (06/28/23) H/O colonoscopy Hx of appendectomy History of surgery Family History Father No problems noted. Mother No problems noted. Social History Household Members: Significant Other Housing: Apartment Are you a primary healthcare architect to a significant other at home: No Do you presently have visiting nurse or other home services: No Alcohol intake: never Patient Tobacco Use Status: Current everyday Tobacco user Tobacco use type: Cigarette Cigarettes Per Day: 10 Current occupational status: retired Current occupation: right handed Review of Systems Const All systems reviewed & are unremarkable except as noted in HPI and below Reports no additional complaints Resp Reports no additional complaints GI Reports no additional complaints Reports as per HPI Musc Reports no additional complaints Physical Exam Telemedicine evaluation Appropriate responses Regular breathing rate and rhythm HEENT Head: Yes normal to inspection Ears: hearing grossly normal bilaterally Eyes General: appearance normal, both eyes and all related structures Neck Neck: Yes normal visual inspection Chest Chest palpation & inspection: normal inspection of the chest Resp Effort & Inspection: normal respiratory effort and able to speak in complete sentences Telehealth Telehealth Telehealth Platform: [employer] Location of provider rendering services: practice address Location of patient: address on file Patient Identification confirmed using: Name, : Yes Telehealth method: video Patient verbally consented to treatment: Yes Patient verbally consented to billing insurance company: Yes Patient informed of any privacy concerns related to visit: Yes Minutes spent on Phone/Video with Pt.: 15 Assessment & Plan Assessment & Plan (1) Peyronie's disease: Code(s): N48.6 - Induration penis plastica Category: Medical (2) Erectile dysfunction associated with type 2 diabetes mellitus: Code(s): E11.69 - Type 2 diabetes mellitus with other specified complication; N52.1 - Erectile dysfunction due to diseases classified elsewhere Category: Medical Plan Six-month follow-up labs office Orders: Orders Prostate Specific Antigen 6 Months E11. - Type 2 diabetes mellitus with other specified complication, N52.1 - Erectile dysfunction due to diseases classified elsewhere Complete Blood Count no Diff 6 Months E11. - Type 2 diabetes mellitus with other specified complication, N52.1 - Erectile dysfunction due to diseases classified elsewhere Testosterone, Total 6 Months E11. - Type 2 diabetes mellitus with other specified complication, N52.1 - Erectile dysfunction due to diseases classified elsewhere Medications: Changed From testosterone cypionate 80 mg (0.4 mL) subcut QWEEK 4 weeks 2 mL 2RF E29.1 - Testicular hypofunction, [id number] To testosterone cypionate (Depo-Testosterone) 100 mg (0.5 mL) subcut QWEEK 2 mL 2RF 4 weeks E29.1 - Testicular hypofunction, [id number] Patient Instructions: Imaging studies, laboratory and physical exam results were discussed and reviewed in detail. No major barriers to patient understanding were identified. An opportunity to ask questions regarding the treatment plan was provided. All questions were answered. The patient expressed understanding and agreement with the above treatment plan. The patient is aware they should contact our office by phone for worsening of their current condition or the appearance of new urologic symptoms. Compliance is encouraged with any medications and followup testing that is ordered. It is a privilege to participate in the urologic care of your patient. If you have any questions or concerns regarding treatment for the above conditions, or other urologic issues, please do not hesitate to contact me. The office telephone contact is [phone]. This note is constructed using voice recognition software. While every effort has been made to ensure accuracy associate professor of art history errors may have been included. Yours sincerely, Dr Norberto Dover MD, SONDRA [facility] Providers of Expert, Compassionate Care for the Genitourinary System Coding Level of Care Code Tele Est Pt Level 3 (05980) Diagnoses Peyronie's disease N48.6 Erectile dysfunction associated with type 2 diabetes mellitus E11.69; N52.1
== END 2024-02-28 14:38 | disposition home or self-care (01) ==
LOC: HO.HUSH 13:02
PROVIDERS: PCP Internal Medicine; Visit Provider Urology
DX: N48.6 Induration penis plastica (principal); E11.69 Type 2 diabetes mellitus with other specified complication; N52.1 Erectile dysfunction due to diseases classified elsewhere
CPT/HCPCS: 99213

== ENCOUNTER 2024-04-09 09:29 | Outpatient (REF) | payer MEDICAID, SELFPAY ==
--- NOTE | ~2024-04-09 | CT_ITS ---
CLINICAL HISTORY: M54.12 - Radiculopathy, cervical region CT cervical spine without contrast Comparison: MR/SR - MR CERVICAL SPINE WO CON - 09/15/2023 10:05 AM EDT Findings: There has been a previous anterior cervical discectomy and fusion extending from C4-T1. There is anterolisthesis of C7 on T1 measuring 4 mm, unchanged from prior. Multilevel degenerative change present. Again seen is significant facet arthrosis at C2-3 on the left with moderate left foraminal narrowing. At C3-4 there is marked right-sided facet arthrosis which results in severe right-sided foraminal narrowing there is a circumferential disc bulge at this level resulting in minimal central canal narrowing with an AP diameter of 9 mm. At C4-5 there has been a intervertebral fusion. Moderate left and mild right foraminal narrowing present. No canal stenosis. At C5-6 there has been intervertebral fusion. There is marked uncovertebral hypertrophy, right greater than left, which significantly narrows the right neural foramen. There is moderately severe left neural foraminal narrowing as well. There is moderate central canal narrowing with an AP diameter 7 mm. At C6-7 there has been a fusion. There is bilateral moderate foraminal narrowing mild central canal narrowing present. At C7-T1 there is moderate central canal narrowing with an AP diameter of 7 mm. Bilateral severe foraminal narrowing present secondary to facet arthrosis and anterolisthesis. No acute fractures or dislocations. No acute findings on limited view of the intracranial contents. Soft tissues of the neck are normal. No consolidation or effusion at the lung apices. Dense calcification of the bilateral carotid bulbs. IMPRESSION: Multilevel degenerative changes described level by level. Overall, findings are not significantly changed in comparison to 09/15/2023. This document has been electronically signed by: Jaylen Collins MD on 04/09/2024 23:36:08
== END 2024-04-09 09:30 | disposition home or self-care (01) ==
LOC: HO.CT 09:29
PROVIDERS: PCP Internal Medicine; Visit Provider Physician Assistant
DX: M54.12 Radiculopathy, cervical region (principal)
CPT/HCPCS: 72125

== ENCOUNTER → 2024-04-09 09:31 | Outpatient (BNV) | payer MEDICAID, SELFPAY | PROVIDERS: PCP Internal Medicine; Visit Provider Radiology Diagnostic Radiology | DX: M50.30 Other cervical disc degeneration, unspecified cervical region (principal) | CPT/HCPCS: 72125 ==

== ENCOUNTER 2024-06-04 09:50 | Outpatient (AMB) | payer MEDICAID, SELFPAY ==
[2024-06-04 10:01] VITALS: BP 145/95; PULSE 104; O2SAT 95
--- NOTE | 2024-06-04 10:01 | A.OFFVIS_ITS ---
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 Required: No Allergies morphine [MORPHINE] Allergy (Unknown, Verified 06/04/24 10:04) NAUSEA, nausea and vomiting Medication List - Last Reconciled 06/04/24 by Lexus Pal, COMMERCIAL ASSISTANT albuterol sulfate 90 mcg/actuation (ProAir HFA) 2 puffs PO QID PRN aspirin 81 mg PO DAILY atorvastatin 10 mg PO DAILY@1700 blood sugar diagnostic (FreeStyle Lite Strips) As directed cholecalciferol (vitamin D3) (Vitamin D3) 10 mcg PO DAILY dulaglutide (Trulicity) 1.5 mg subcut QWEEK fluticasone propionate 50 mcg/actuation 1 spray intranasal BID PRN gabapentin 300 mg PO BEDTIME gabapentin 200 mg PO TID gemfibrozil 600 mg PO BID insulin syringe-needle U-100 As directed lisinopril 10 mg PO DAILY metformin 1,000 mg PO BID methocarbamol 500 mg PO TID needle (disp) 22 G As directed syringe with needle (UltiCare) As directed tadalafil 5 mg PO DAILY 90 days tamsulosin 0.4 mg PO DAILY@1700 90 days testosterone cypionate (Depo-Testosterone) 100 mg (0.5 mL) subcut QWEEK 4 weeks HPI HPI Radiculopathy, cervical region: Details: History of Present Illness The patient is a 58-year-old male presenting with ongoing cervical radiculopathy and cervical spinal stenosis. Initial corrective cervical procedure involving bilateral C7 T1 foraminotomy and ACDF provided limited relief. Persistent discomfort and functional limitation linked to possible nerve root and spinal cord interference from surgical components have been observed. Despite multiple cortisone injections over previous years, pain relief has been inconsistent. Subsequent diagnostic evaluations underline moderate spinal stenosis and technical surgical challenges. Recent efforts focus on mitigating chronic postoperative pain and addressing moderate cervical stenosis likely affecting the patient?s everyday function and quality of life. Pain Description - Pain intensity is 10/10, described as severe and debilitating. - Onset following cervical procedures, with some initial surgical pain reduction. - Radiating pain begins in the neck, extends down both arms. - Exacerbated by physical activity, standing, and resting on certain surfaces or positions. - Alleviating factors have not been effectively identified despite interventions. - Impairs sleep and daily activities significantly, inducing instability and nu mbness. Physical Exam Appears afebrile. Alert and oriented. Mood and affect appropriate. Follows and participates in conversation appropriately. Respiratory effort is unlabored. Able to transition from sit to stand unassisted. Ambulates with bilaterally normal heel strike and toe off. Able to stand and walk on toes and heels. Results - Tests: CT and MRI imaging indicate nerve root compression with cervical spinal stenosis, specifically demonstrating interference with spinal fluid flow and moderate stenosis at C7-T1. - Diagnosis consistent with anatomic reports from surgical attempts and nerve assessments. Pain Management - Affect: Severe pain impacts psychological health, inducing irritability and anger. - Analgesia: Limited post-surgical analgesia with described ongoing severe pain; previous cortisone shots provided inconsistent relief. - Adverse Effects: No specific adverse effects of current medications noted; underlying diabetes affects general health. - Activities of Daily Living: Extreme limitation in routine activities, impaired standing, and walking ability, sleep deprivation due to pain. - Aberrant Drug Related Behaviors: No indications of drug misuse reported. [facility] Medical History SOB (shortness of breath) COPD (chronic obstructive pulmonary disease) TIA (transient ischemic attack) Stroke Steatosis of liver Osteoarthritis Lyme disease Infection due to Escherichia coli Hyperlipidemia Hyperkalemia Pyelonephritis HTN (hypertension) Diverticulosis Cervical disc disorder Acute kidney injury Back pain Asthma Type II diabetes mellitus Peyronie's disease Erectile dysfunction due to diseases classified elsewhere Enlarged prostate with lower urinary tract symptoms (LUTS) Other obstructive and reflux uropathy Rotator cuff impingement syndrome of left shoulder Elevated PSA Surgical History Hx of cervical spine surgery (06/28/23) H/O colonoscopy Hx of appendectomy History of surgery Family History Father No problems noted. Mother No problems noted. Social History Household Members: Significant Other Housing: Apartment Are you a primary patient care director to a significant other at home: No Do you presently have visiting nurse or other home services: No Alcohol intake: never Patient Tobacco Use Status: Current everyday Tobacco user Tobacco use type: Cigarette Cigarettes Per Day: 10 Current occupational status: retired Current occupation: right handed Physical Exam Vital Signs: Last Vital Signs Pulse 104 H 06/04/24 10:01 BP 145/95 H 06/04/24 10:01 Pulse Ox 95 06/04/24 10:01 Oxygen Delivery Method Room Air 06/04/24 10:01 BMI result Body Mass Index 30.0 Assessment & Plan Assessment & Plan (1) Cervical radiculopathy: Code(s): M54.12 - Radiculopathy, cervical region Category: Medical (2) S/P cervical spinal fusion: Code(s): Z98.1 - Arthrodesis status Category: Surgical (3) Cervical post-laminectomy syndrome: Code(s): M96.1 - Postlaminectomy syndrome, not elsewhere classified Category: Medical Plan Plan Patient was informed and verbally consented to the use of an ambient scribe for clinic note documentation during this visit. 1. Cervical Radiculopathy Considering spinal cord stimulation and reviewing options post-surgical evaluation. Surgical decompression could be explored after assessment of current spinal status and surgical feasibility. 2. Cervical Spinal Stenosis Review ongoing imaging and discuss additional MRI. Potential moderate stenosis may necessitate limited decompression surgery prior to SCS lead placement. Discussion Notes I discussed with the patient the ongoing challenges with chronic cervical radiculopathy and cervicular spinal stenosis. Management revolves around addressing moderate cervical stenosis at C7-T1, with spinal cord stimulation identified as a viable option to reduce pain. We discussed the risk of precipitating spinal cord compressive symptoms if there is not enough room for the leads to be placed in the posterior epidural space. We talked through the surgical complexities and possible outcomes. I stressed the importance of follow-up consultations and assured that any surgical step will be meticulously reviewed for patient safety. Patient Instructions - Await further correspondence to review surgery insights concerning the spinal stenosis at C7-T1. - Consider MRI evaluation per discussed follow-up plan. - Adhere to prescribed pain management regimen and monitor any changes. - Consult for emerging symptoms and acute discomfort immediately. - Stay informed on upcoming procedural strategies and outpatient guidance. Coding Level of Care Code New Pt Level 4 (38707) Diagnoses Cervical radiculopathy M54.12 S/P cervical spinal fusion Z98.1 Cervical post-laminectomy syndrome M96.1
--- OUTSIDE RECORDS SUMMARY | 2024-06-04 10:52 | XMS_ITS | Clinical Summary ---
Author Organization [facility] Address [address] [place] [address] Phone Care Team Providers Care Circulating Nurse Name Role Phone Louis Max MD Primary Care Provider [phone] Allergies Active Allergy Reactions Criticality Noted Date Comments Morphine Other (see comments) 09/11/2020 Medications aspirin (ST ALL) 81 MG EC tablet Take 1 tablet by mouth 1 (one) time each day Active metFORMIN (GLUCOPHAGE) 1000 MG tablet Take 500 mg by mouth in the morning and 500 mg in the evening. Active lisinopril (PRINIVIL,ZESTR IL) 10 MG tablet Take 1 tablet by mouth 1 (one) time each day Active gemfibrozil (LOPID) 600 MG tablet Take 1 tablet by mouth 2 (two) times a day Active tamsulosin (FLOMAX) 0.4 MG 24 hr capsule Take 1 capsule by mouth 1 (one) time each day Active gabapentin (NEURONTIN) 300 MG capsule Take 300 mg by mouth every night Active Dulaglutide 1.5 MG/0.5ML solution pen-injector Inject under the skin Active testosterone cypionate (DEPO-TESTOTERO NE) 200 MG/ML injection INJECT 80 MG (0.4 ML) SUBCUT EVERY WEEK FOR 4 WEEKS 12/20/2020 Active atorvastatin (LIPITOR) 10 MG tablet Take 10 mg by mouth 1 (one) time each day 12/18/2020 Active gabapentin (NEURONTIN) 100 MG capsule Take 2 capsules by mouth 3 (three) times a day 12/18/2020 Active fluticasone (FLONASE) 50 MCG/ACT nasal spray 04/22/2021 Active ProAir HFA 108 (90 Base) MCG/ACT inhaler 04/21/2021 Act marilu Active Problems Problem Noted Date Diagnosed Date Acute pyelonephritis 09/11/2020 Acute nontraumatic kidney injury 09/11/2020 Bacteremia 09/11/2020 Essential hypertension 09/11/2020 Renal disorder due to type 2 diabetes mellitus 0 09/11/2020 Type 2 diabetes mellitus 09/11/2020 Family History Medical History Relation Comments Diabetes Mother Relation Status Comments Mother Social History Tobacco Use Types Packs/Day Years Used Date Smoking Tobacco: Some Days Smokeless Tobacco: Current Tobacco Cessation:Ready to Q uit: No; Counseling Given: No Alcohol Use Standard Drinks/Week Comments Yes 0 (1 standard drink = 0.6 oz pure alcohol) Alcoholic Drinks/day: Occasional social drink Sex and Gender Information Value Date Recorded Sex Assigned at Not on file Legal Sex Male 4:52 PM EST Gender Identity Not on file Sexual Orientation Not on file Last Filed Vital Signs Vital Sign Reading Time Taken Comments Blood Pressure 142/64 12/02/2022 1:20 PM EDT Pulse 111 12/02/2022 1:20 PM EDT Temperature - - Respiratory Rate - - Oxygen Saturation 97% 12/02/2022 1:20 PM EDT Inhaled Oxygen Concentration - - Weight 91.5 kg (201 lb 12.8 oz) 12/02/2022 1:20 PM EDT Height 177.8 cm (5' 10 ) 05/20/2022 2:57 PM EST Body Mass Index 28.96 05/20/2022 2:57 PM EST Plan of Treatment Health Maintenance Due Date Last Done Comments Pneumococcal Vaccine: Pediatrics (0 to 5 Years) and At-Risk Patients (6 to 64 Years) (1 of 2 - PCV) 08/01/1969 Colorectal Cancer Screening: Annual FOBT 08/01/2012 Colorectal Cancer Screening: Colonoscopy 08/01/2012 Colorectal Cancer Screening: Sigmoidoscopy 08/01/2012 Diabetes: Ophthalmology Exam 05/11/2020 Diabetes: Pedal Pulse Checked 05/11/2020 Diabetes: Sensory Foot Exam 05/11/2020 Diabetes: Visual Foot Exam 05/11/2020 Diabetes: Hemoglobin A1C 05/13/2020 020, 11/26/2019 Influenza Vaccine (#1) 2023 Hepatitis B Vaccine Aged Out No longe r eligible based on patient's age to complete this topic Procedures Procedure Name Priority Date/Time Associated Diagnosis Comments BLOOD PANEL (HC) Routine 02/11/2020 12:0 0 AM EST from Last 3 Months or Most Recently Relevant to Health Maintenance Results * (ABNORMAL) Blood Panel (02/11/2020 12:00 AM EST) Creatinine 1.07 0.70 - 1.30 mg/dl PVNMA Calcium 10.0 8.4 - 10.2 mg/dl PVNMA Potassium 4.5 3.5 - 5.1 mmol/L PVNMA BUN 14 9 - 20 mg/dl PVNMA Sodium 135(L) 137 - 145 mmol/L PVNMA Hemoglobin A1C 9.3(H) <5 % PVNMA 02/11/2020 us [facility] Conversion LAB [id number] LICITED RESULTS Final Result PVNMA from Last 3 Months or Most Recently Relevant to Health Maintenance Insurance [place] Care Teams Circulating Nurse Relationship Specialty Start Date End Date Louis Max MD [address] [place] [address] [address] [facility] - General 04/21/20
== END 2024-06-04 10:35 | disposition home or self-care (01) ==
PROVIDERS: PCP Internal Medicine; Referring Provider Physician Assistant; Visit Provider Internal Medicine
DX: M54.12 Radiculopathy, cervical region (principal); Z98.1 Arthrodesis status; M96.1 Postlaminectomy syndrome, not elsewhere classified
CPT/HCPCS: 99204

== ENCOUNTER → 2024-06-04 09:50 | Outpatient (BNVA) | payer MEDICAID, SELFPAY | PROVIDERS: PCP Internal Medicine; Referring Provider Physician Assistant; Visit Provider Internal Medicine | DX: M54.12 Radiculopathy, cervical region (principal); M96.1 Postlaminectomy syndrome, not elsewhere classified; Z98.1 Arthrodesis status | CPT/HCPCS: 99202 ==

== ENCOUNTER 2024-08-09 10:34 | Outpatient (REF) | payer MEDICAID, SELFPAY ==
--- OUTSIDE RECORDS SUMMARY | 2024-08-09 12:09 | XMS_ITS | Clinical Summary ---
Author Organization [facility] Address [address] [place] [address] Phone Care Team Providers Care Shoe Clerk Name Role Phone Louis Max MD Primary Care Provider [phone] Allergies Active Allergy Reactions Criticality Noted Date [...] Due Date Last Done Comments Pneumococcal Vaccine: 50+ Years (1 of 2 - PCV) 08/01/1982 Colorectal Cancer Screening: Annual FOBT 08/01/2012 Colorectal Cancer Screening: Colonoscopy 08/01/2012 Colorectal Cancer Screening: Sigmoidoscopy 08/01/2012 Diabetes: Ophthalmology Exam 05/11/2020 Diabetes: Pedal Pulse Checked 05/11/2020 Diabetes: Sensory Foot Exam 05/11/2020 Diabetes: Visual Foot Exam 05/11/2020 Diabetes: Hemoglobin A1C 05/13/2020 020, 11/26/2019 Influenza Vaccine (Season Ended) 2024 Hepatitis B Vaccine Aged Out No longe [...] % PVNMA 02/11/2020 us [facility] Conversion LAB [id number] LICITED RESULTS Final Result PVNMA from Last 3 Months or Most Recently Relevant to Health Maintenance Insurance Medicaid [place] Care Teams Shoe Clerk Relationship Specialty Start Date End Date Louis Max MD [address] [place] PCP - General 04/21/20
[2024-08-09 14:03] LABS: MANUAL DIFF FLAG NO
[2024-08-09 14:14] LABS: Basophils Absolute Auto 0.1 X10*3/uL (0.0-0.2); Basophils Percent Auto 0.9 % (0-2); Eosinophils Absolute Auto 0.2 X10*3/uL (0.0-0.4); Eosinophils Percent Auto 3.4 % (0-4); Hematocrit 42.3 % (42.0-52.0); Hemoglobin 14.9 g/dl (14.0-18.0); Imm Gran Abs Auto 0.06 X10*3/uL (0.00-0.03); Imm Gran Pct Auto 0.9 % (0.0-0.4); Lymphocytes Absolute Auto 1.6 X10*3/uL (1.2-4.9); Lymphocytes Percent Auto 23.4 % (20-40); Mean Corpuscular HGB Conc 35.2 g/dl (31.0-36.0); Mean Corpuscular Hemoglobin 32.3 pg (27.0-33.0); Mean Corpuscular Volume 91.6 fL (80.0-98.0); Mean Platelet Volume 9.6 fL (9.4-12.4); Monocytes Absolute Auto 0.7 X10*3/uL (0.1-1.2); Monocytes Percent Auto 9.7 % (2-11); Neutrophils Absolute Auto 4.2 x10*3/uL (2.0-8.3); Neutrophils Percent Auto 61.7 % (45-73); Platelet Count 307 X10*3/uL (160-400); Red Blood Count 4.62 X10*6/uL (4.60-5.80); Red Cell Distribution Width 13.4 % (11.0-16.0); White Blood Count 6.7 X10*3/uL (4.8-10.8)
[2024-08-09 14:28] LABS: Alanine Aminotransferase 17 U/L (0-40); Albumin Level 4.4 g/dL (3.5-5.0); Alkaline Phosphatase 105 U/L (39-117); Anion Gap 16 (12-20); Aspartate Amino Transferase 25 U/L (5-37); Bilirubin Total 0.3 mg/dL (0.0-1.0); Blood Urea Nitrogen 25 mg/dL (9-16); Carbon Dioxide 22 mmol/L (22-29); Chloride 105 mmol/L (96-108); Estimated Glomerular Filt Rate > 60; Glucose Random 218 mg/dL (60-115); Potassium 4.5 mmol/L (3.3-5.1); Sodium 138 mmol/L (135-145); Total Protein 7.3 g/dL (6.5-8.0)
[2024-08-09 14:44] LABS: Estimated Average Glucose 140 mg/dL; Hemoglobin A1C 182.5451 umol/L; Hemoglobin A1c % 6.5 % (<6.0); Total Hemoglobin (HGBA1C) 3866.5686 umol/L
[2024-08-09 14:46] LABS: Prostate Specific Antigen 0.75 ng/mL (<0.05-4.0)
[2024-08-13 00:27] LABS: Testosterone, Total 66 ng/dL (250-1100)
== END 2024-08-09 10:35 | disposition home or self-care (01) ==
LOC: HO.10HDL 10:34
PROVIDERS: Referring Provider Internal Medicine; Visit Provider Urology
DX: E11.69 Type 2 diabetes mellitus with other specified complication (principal); N52.1 Erectile dysfunction due to diseases classified elsewhere; I10 Essential (primary) hypertension; J44.9 Chronic obstructive pulmonary disease, unspecified
CPT/HCPCS: 36415; 80053; 83036; 84153; 84403; 85025

== ENCOUNTER 2024-08-28 08:53 | Outpatient (AMB) | payer OTHER, SELFPAY ==
--- NOTE | 2024-08-28 08:54 | MHC.OFFVIS ---
Intake Visit Reasons: 6m/labs Intake Note: Pt presents to the office as a telehealth for a 6 month follow up/labs. Allergies morphine [MORPHINE] Allergy (Unknown, Verified 08/28/24 08:54) NAUSEA, nausea and vomiting HPI Comments Details: Rao is a pleasant male. He is seen for the following urologic issues - hypogonadism in setting of diabetes - lower urinary tract symptoms - erectile dysfunction Telemedicine Evaluation 15 min Consultation [employer] Sean Video attempted 6m f/u Injectable T but gives injection and is logistically challenging Good response to tadalafil 5 mg daily Suggest trial of T pellets - failure of gel absorption, logistics issues since cannot give himself T shots Lower urinary tract symptoms Progressive Current therapy Flomax Hypogonadism Long-term usage of testosterone gel Switched over to injectable 2020 Injection day Tuesday Laboratory day Tuesday Laboratories - 11/29 T 1000, hematocrit 42.9, PSA 0.43, 06/02 T 720 P 0.53 H 39, 11/30 536 0.7 44, 07/01 T 530 P 0.9 H 46, 01/01 T 825 P 1.4 H 47, 07/02 T 460 P0.5 42, 02/01 P 0.4 T300, 09/02 T66 PSA 0.75 Patient Peyronie disease which is asymptomatic since 09/27/2019? PFSH Medical History SOB (shortness of breath) COPD (chronic obstructive pulmonary disease) TIA (transient ischemic attack) Stroke Steatosis of liver Osteoarthritis Lyme disease Infection due to Escherichia coli Hyperlipidemia Hyperkalemia Pyelonephritis HTN (hypertension) Diverticulosis Cervical disc disorder Acute kidney injury Back pain Asthma Type II diabetes mellitus Peyronie's disease Erectile dysfunction due to diseases classified elsewhere Enlarged prostate with lower urinary tract symptoms (LUTS) Other obstructive and reflux uropathy Rotator cuff impingement syndrome of left shoulder Elevated PSA Surgical History Hx of cervical spine surgery (06/28/23) H/O colonoscopy Hx of appendectomy History of surgery Family History Father No problems noted. Mother No problems noted. Social History Household Members: Significant Other Housing: Apartment Are you a primary care transitions nurse to a significant other at home: No Do you presently have visiting nurse or other home services: No Alcohol intake: never Patient Tobacco Use Status: Current everyday Tobacco user Tobacco use type: Cigarette Cigarettes Per Day: 10 Current occupational status: retired Current occupation: right handed Review of Systems Const All systems reviewed & are unremarkable except as noted in HPI and below Reports no additional complaints Resp Reports no additional complaints GI Reports no additional complaints Reports as per HPI Musc Reports no additional complaints Physical Exam Telemedicine evaluation Appropriate responses Regular breathing rate and rhythm HEENT Head: Yes normal to inspection Ears: hearing grossly normal bilaterally Eyes General: appearance normal, both eyes and all related structures Neck Neck: Yes normal visual inspection Chest Chest palpation & inspection: normal inspection of the chest Resp Effort & Inspection: normal respiratory effort and able to speak in complete sentences Telehealth Telehealth Telehealth Platform: [employer] Location of provider rendering services: practice address Location of patient: address on file Patient Identification confirmed using: Name, : Yes Telehealth method: video Patient verbally consented to treatment: Yes Patient verbally consented to billing insurance company: Yes Patient informed of any privacy concerns related to visit: Yes Minutes spent on Phone/Video with Pt.: 15 Assessment & Plan Assessment & Plan (1) Peyronie's disease: Code(s): N48.6 - Induration penis plastica Category: Medical (2) Erectile dysfunction associated with type 2 diabetes mellitus: Code(s): E11.69 - Type 2 diabetes mellitus with other specified complication; N52.1 - Erectile dysfunction due to diseases classified elsewhere Category: Medical (3) Hypogonadism in male: Code(s): E29.1 - Testicular hypofunction Category: Medical Plan Trial of pellets Medications: Refilled testosterone cypionate (Depo-Testosterone) 100 mg (0.5 mL) subcut QWEEK 4 weeks 2 mL 3RF E29.1 - Testicular hypofunction Patient Instructions: This note is constructed using voice recognition software. While every effort has been made to ensure accuracy radial drill press operator for plastic errors may have been included. Imaging studies, laboratory and physical exam results were discussed and reviewed in detail. No major barriers to patient understanding were identified. An opportunity to ask questions regarding the treatment plan was provided. All questions were answered. The patient expressed understanding and agreement with the above treatment plan. The patient is aware they should contact our office by phone for worsening of their current condition or the appearance of new urologic symptoms. Compliance is encouraged with any medications and followup testing that is ordered. It is a privilege to participate in the urologic care of your patient. If you have any questions or concerns regarding treatment for the above conditions, or other urologic issues, please do not hesitate to contact me. The office telephone contact is [phone]. Sincerely, Dr Norberto Dover MD, [facility] - Urology Compassionate Specialist Care for the Genitourinary System Coding Level of Care Code Tele Est Pt Level 3 (07498) Complex EM visit Add On G2211 Diagnoses Peyronie's disease N48.6 Erectile dysfunction associated with type 2 diabetes mellitus E11.69; N52.1 Hypogonadism in male E29.1
--- OUTSIDE RECORDS SUMMARY | 2024-08-28 09:18 | XMS_ITS | Clinical Summary ---
Author Organization [facility] Address [address] [place] [address] Phone Care Team Providers Care Recycling Technician Name Role Phone Louis Max MD Primary Care Provider [phone] Allergies Active Allergy Reactions Criticality Noted Date [...] % PVNMA 02/11/2020 us Rtama Conversion LAB [id number] LICITED RESULTS Final Result PVNMA from Last 3 Months or Most Recently Relevant to Health Maintenance Insurance Medicaid [place] Care Teams Recycling Technician Relationship Specialty Start Date End Date Louis Max MD [address] [place] PCP - General 04/21/20
== END 2024-08-28 09:22 | disposition home or self-care (01) ==
LOC: HO.HUSH 08:53
PROVIDERS: PCP Internal Medicine; Visit Provider Urology
DX: N48.6 Induration penis plastica (principal); E11.69 Type 2 diabetes mellitus with other specified complication; N52.1 Erectile dysfunction due to diseases classified elsewhere; E29.1 Testicular hypofunction
CPT/HCPCS: 99213; G2211

== ENCOUNTER → 2024-08-28 08:53 | Outpatient (BNVA) | payer OTHER, SELFPAY | PROVIDERS: PCP Internal Medicine; Visit Provider Urology ==

== ENCOUNTER 2024-08-30 10:41 | Outpatient (AMB) | payer OTHER, SELFPAY ==
[2024-08-30 09:59] VITALS: BP 136/74; RESP 111; TEMP 36.6; O2SAT 97; BMI 29.5
--- NOTE | 2024-08-30 09:59 | MHC.PC.OV ---
Vital Signs 08/30/24 09:59 Height 5 ft 9 in Weight 200 lb BMI 29.5 BP 136/74 Blood Pressure Location Lt brachial Position Sitting Respiration 111 H Temp 97.9 F Temp Source Axillary Pulse Oximetry (%) 97 Oxygen Delivery Method Room Air Intake Visit Reasons: Routine - see comments Performance Analyst Required: No Accompanied by: Self / Same As Patient Allergies morphine [MORPHINE] Allergy (Unknown, Verified 08/30/24 09:59) NAUSEA, nausea and vomiting Tobacco use date assessed: 08/30/24 Dental Screening Dental Screen Date: 08/30/24 Did you have a dental visit in the last 12 months?: No Did you have a dental problem in the last 6 months where you did not have access to dental care?: No HPI HPI Comments History of Present Illness Details The patient is a 59 year old male with a past medical history of diabetes, PAD, CKD, hypertension, hyperlipidemia, COPD, neck pain, back pain, BPH and ED presenting for follow up. Last seen in May by PCP DM: A1C 08/09/2024-on metformin 1000mg twice daily, trulicity 1.5 weekly and glipizide 2.5mg twice daily. Last weight 205 pounds, now 200 pounds (intentional). Has been skipping some metformin in BG less than 100 told him to continue trulicty and metformin and hold glipizide instead BPH/ED following with urology Colon cancer screening due-cologuard ordered. Colonoscopy declined ROS CONSTITUTIONAL: Denies weight loss, fever and chills. HEENT: Denies changes in vision and hearing. RESPIRATORY: Denies SOB and cough. CV: Denies palpitations and CP GI: Denies abdominal pain, nausea, vomiting and diarrhea. : Denies dysuria and urinary frequency. MSK: Denies new myalgia and joint pain. SKIN: Denies rash and pruritus. NEUROLOGICAL: Denies headache PSYCHIATRIC: Denies recent changes in mood. PHYSICAL EXAM: GENERAL: Alert and oriented x 3. NAD EYES: EOMI. Anicteric. HENT: Moist mucous membranes. No scleral icterus. No cervical lymphadenopathy. LUNGS: Clear to auscultation bilaterally. CARDIOVASCULAR: Regular rate and rhythm. No murmur. No JVD. ABDOMEN: Soft, non-tender +bs EXTREMITIES: No edema. Non-tender. SKIN: No rashes or lesions. Warm. NEUROLOGIC: No focal neurological deficits. CN II-XII grossly intact PSYCHIATRIC: Cooperative. Appropriate mood and affect [facility] Medical History (Updated 08/30/24 @ 10:57 by Yodit Sneed MD) SOB (shortness of breath) COPD (chronic obstructive pulmonary disease) TIA (transient ischemic attack) Stroke Steatosis of liver Osteoarthritis Lyme disease Infection due to Escherichia coli Hyperlipidemia Hyperkalemia Pyelonephritis HTN (hypertension) Diverticulosis Cervical disc disorder Acute kidney injury Back pain Asthma Type II diabetes mellitus Peyronie's disease Erectile dysfunction due to diseases classified elsewhere Enlarged prostate with lower urinary tract symptoms (LUTS) Other obstructive and reflux uropathy Rotator cuff impingement syndrome of left shoulder Elevated PSA Surgical History Hx of cervical spine surgery (06/28/23) H/O colonoscopy Hx of appendectomy History of surgery Family History (Updated 08/30/24 @ 10:49 by Tiffany Velasquez [place]) Father No problems noted. Mother No problems noted. Social History Household Members: Significant Other Housing: Apartment Are you a primary career technical counselor to a significant other at home: No Do you presently have visiting nurse or other home services: No Alcohol intake: never Patient Tobacco Use Status: Current everyday Tobacco user Tobacco use type: Cigarette Cigarettes Per Day: 10 e-Cigarette/Vaping Use: Currently Using service: No Current occupational status: retired Current occupation: right handed Current occupational exposures/hazards: No Cognitive needs: No Hearing needs: No Vision needs: No Questionnaire PHQ-9 Over the last 2 weeks, how often have you been bothered by any of the following problems? 1. Little interest or pleasure in doing things: not at all 2. Feeling down, depressed, or hopeless: not at all 3. Trouble falling or staying asleep, or sleeping too much: not at all 4. Feeling tired or having little energy: not at all 5. Poor appetite or overeating: not at all 6. Feeling bad about yourself - or that you are a failure or have let yourself or your family down: not at all 7. Trouble concentrating on things, such as reading the newspaper or watching television: not at all 8. Moving or speaking so slowly that other people could have noticed. Or the opposite - being so fidgety or restless that you have been moving around a lot more than usual: not at all 9. Thoughts that you would be better off or of hurting yourself in some way: not at all Total score: 0 Depression Screening Interpretation: Negative Depression Screening Done: Yes [id number] - PHQ-9 Billing: Yes Source: Developed by Drs. Conrda Pendleton, Peggy Abdul, Mark Ashby and colleagues, with an educational jose from [employer]. Thrive Questionnaire Date Thrive assessed: 08/30/24 I am a: Patient Within the past 12 months, did the food you bought not last and you didn't have the money to get more?: Never true Within the past 12 months, did you worry whether your food would run out before you got money to buy more?: Never true Do you have trouble paying for medicines?: No Do you have trouble getting transportation to medical appointments?: No Do you have trouble paying your heating and electricity bill?: No Do you have trouble taking care of your child, family member or friend?: No Do you have trouble with day-to-day activities such as bathing, preparing meals, shopping, managing finances, etc.?: No Are you currently unemployed and looking for a job?: No Are you interested in more education?: No THRIVE Score: 0 AUDIT C Alcohol Use Questionnaire (AUDIT-C) 1. How often do you have a drink containing alcohol?: Monthly or less 2. How many drinks containing alcohol do you have on a typical day when you are drinking?: 1 or 2 3. How often do you have six or more drinks on one occasion?: Less than monthly Total Score: 2 SHARON-7 AMB Questionnaire SHARON-7 Date SHARON - 7 assessed: 08/30/24 Feeling nervous, anxious, or on edge: 0 = Not at all Not being able to stop or control worryin = Not at all Worrying too much about different things: 0 = Not at all Trouble relaxin = Not at all Being so restless that it is hard to sit still: 0 = Not at all Becoming easily annoyed or irritable: 0 = Not at all Feeling afraid as if something awful might happen: 0 = Not at all Total SHARON-7 score (0-4 normal; 5-9 mild; 10-14 moderate; 15-21 severe): 0 Source: Developed by Drs. Conrad Pendleton, Peggy Abdul, Mark Ashby and colleagues, with an educational jose from [employer]. Physical exam (Primary Care) Tobacco/Smoking Status: Tobacco use Status Tobacco use date assessed 08/30/24 08/30/24 10:00 Patient Tobacco Use Status Current everyday Tobacco 08/30/24 10:00 Tobacco use type Cigarette 08/30/24 10:00 e-Cigarette/Vaping Use Never Used 08/30/24 10:00 PHQ-9: PHQ-9 Score PHQ-9: Total score 0 08/30/24 10:00 Depression Screening Interpretation: Negative Thrive Assessment: Date of Thrive Assessment Date Thrive assessed 08/30/24 08/30/24 10:00 Coding Level of Care Code New Pt Level 4 (54192) Complex EM visit Add On G2211 Diagnoses Type 2 diabetes mellitus with other circulatory complication, without long-term current use of insulin E11.59 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: without chcf use Diabetes mellitus complication status: with circulatory complication Diabetes mellitus complication detail: with other circulatory complications Additional Codes PHQ-9 - 40742 - PHQ-9 Billing: Yes ([id number]) Assessment & Plan Assessment & Plan (1) Type II diabetes mellitus: Code(s): E11.9 - Type 2 diabetes mellitus without complications Category: Medical Qualifiers: 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 Stop glipizide he is having some low readings then skipping metformin Cologuard ordered Orders: Orders Lipid Panel 3 Months E11.59 - Type 2 diabetes mellitus with other circulatory complications, M47.12 - Other spondylosis with myelopathy, cervical region, M47.22 - Other spondylosis with radiculopathy, cervical region, M54.12 - Radiculopathy, cervical region Hemoglobin A1c 3 Months E11.59 - Type 2 diabetes mellitus with other circulatory complications, M47.12 - Other spondylosis with myelopathy, cervical region, M47.22 - Other spondylosis with radiculopathy, cervical region, M54.12 - Radiculopathy, cervical region Comprehensive Met. Panel 3 Months E11.59 - Type 2 diabetes mellitus with other circulatory complications, M47.12 - Other spondylosis with myelopathy, cervical region, M47.22 - Other spondylosis with radiculopathy, cervical region, M54.12 - Radiculopathy, cervical region Referrals Cologuard Test Z12.11 - Encounter for screening for malignant neoplasm of colon, Z12.12 - Encounter for screening for malignant neoplasm of rectum
--- OUTSIDE RECORDS SUMMARY | 2024-08-30 11:20 | XMS_ITS | Clinical Summary ---
Author Organization [facility] Address [address] [place] [address] Phone Care Team Providers Care Substation Maintenance Technician Name Role Phone Louis Max MD Primary Care Provider [phone] Allergies Active Allergy Reactions Criticality Noted Date [...] % PVNMA 02/11/2020 us Rtama Conversion LAB [id number] LICITED RESULTS Final Result PVNMA from Last 3 Months or Most Recently Relevant to Health Maintenance Insurance [place] Care Teams Substation Maintenance Technician Relationship Specialty Start Date End Date Louis Max MD [address] [place] PCP - General 04/21/20
== END 2024-08-30 11:09 | disposition home or self-care (01) ==
LOC: HO.HMCHD 10:41
PROVIDERS: PCP Internal Medicine; Visit Provider Internal Medicine
DX: E11.59 Type 2 diabetes mellitus with other circulatory complications (principal)

== ENCOUNTER → 2024-08-30 10:41 | Outpatient (BNVA) | payer OTHER, SELFPAY | PROVIDERS: PCP Internal Medicine; Visit Provider Internal Medicine | DX: E11.59 Type 2 diabetes mellitus with other circulatory complications (principal); E11.22 Type 2 diabetes mellitus with diabetic chronic kidney disease; I12.9 Hypertensive chronic kidney disease with stage 1 through stage 4 chronic kidney disease, or unspecified chronic kidney disease; N18.9 Chronic kidney disease, unspecified; E78.5 Hyperlipidemia, unspecified; J44.9 Chronic obstructive pulmonary disease, unspecified; N40.0 Benign prostatic hyperplasia without lower urinary tract symptoms; N52.9 Male erectile dysfunction, unspecified; I73.9 Peripheral vascular disease, unspecified | CPT/HCPCS: 96127; 99202 ==

== ENCOUNTER 2024-10-05 09:11 | Outpatient (REF) | payer OTHER, SELFPAY ==
--- OUTSIDE RECORDS SUMMARY | 2024-10-05 09:32 | XMS_ITS | Clinical Summary ---
Author Organization [facility] Address [address] [place] [address] Phone Care Team Providers Care Production Dispatcher Name Role Phone Louis Max MD Primary Care Provider [phone] Allergies Active Allergy Reactions Criticality Noted Date [...] % PVNMA 02/11/2020 us Rtama Conversion LAB [id number] LICITED RESULTS Final Result PVNMA from Last 3 Months or Most Recently Relevant to Health Maintenance Insurance [place] Care Teams Production Dispatcher Relationship Specialty Start Date End Date Louis Max MD [address] [place] PCP - General 04/21/20
[2024-10-05 09:56] LABS: Hematocrit 40.4 % (42.0-52.0); Hemoglobin 13.8 g/dl (14.0-18.0); Mean Corpuscular HGB Conc 34.2 g/dl (31.0-36.0); Mean Corpuscular Hemoglobin 32.6 pg (27.0-33.0); Mean Corpuscular Volume 95.5 fL (80.0-98.0); Mean Platelet Volume 9.4 fL (9.4-12.4); Platelet Count 236 X10*3/uL (160-400); Red Blood Count 4.23 X10*6/uL (4.60-5.80); Red Cell Distribution Width 13.4 % (11.0-16.0); White Blood Count 8.6 X10*3/uL (4.8-10.8)
== END 2024-10-05 09:12 | disposition home or self-care (01) ==
LOC: HO.10HDL 09:11
PROVIDERS: Visit Provider Urology
DX: E11.69 Type 2 diabetes mellitus with other specified complication (principal); N52.1 Erectile dysfunction due to diseases classified elsewhere
CPT/HCPCS: 36415; 85027

== ENCOUNTER → 2024-12-07 10:20 | Outpatient (BNVA) | payer OTHER, SELFPAY | PROVIDERS: PCP Internal Medicine; Visit Provider Student in an Organized Health Care Education/Training Program | DX: E11.59 Type 2 diabetes mellitus with other circulatory complications (principal); J44.9 Chronic obstructive pulmonary disease, unspecified; E78.5 Hyperlipidemia, unspecified; Z79.84 Long term (current) use of oral hypoglycemic drugs; Z79.899 Other long term (current) drug therapy; Z13.31 Encounter for screening for depression; Z13.39 Encounter for screening examination for other mental health and behavioral disorders | CPT/HCPCS: 96127; 99212 ==

== ENCOUNTER → 2024-12-07 10:20 | Outpatient (AMB) | payer OTHER, SELFPAY ==
--- NOTE | 2024-12-07 10:23 | A.OFFPC_ITS ---
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 The patient reports that his blood glucose control has been generally stable but sometimes experiences hypoglycemia, especially when he skips meals or does not feel hungry. He has been managing his Type 2 Diabetes Mellitus with Metformin, but Glipizide was previously added due to high blood glucose levels. However, the patient suggests reducing Metformin dosage due to reduced appetite. For the last few days, the patient has experienced episodes of dizziness and vertigo. He recalls vertiginous episodes starting on Tuesday morning, with symptoms worsening at night. He hypothesizes that it might be due to an inner ear issue or vertigo, with symptoms exacerbated by sudden head movements. There is a backdrop of a history of peripheral neuropathy, managed with Gabapentin, contributing to his stable nerve pain condition. The patient's chronic COPD has not required hospital admissions, though he continues smoking despite being aware of its health implications. He has been using Albuterol as needed. Additionally, the patient reports nerve pain in his feet persistently, managed with Gabapentin at a 900 mg daily dose divided between morning, afternoon, and night. Regarding Benign Prostatic Hyperplasia, the patient's kidneys were infected in 2019, leading to the prescription of Tamsulosin. Testosterone treatment initia lly on shots is planned to be transitioned to implants soon. Weight loss amounting to 50 pounds has also been mentioned, indicating an improvement in managing obesity. Medical History: - Type 2 Diabetes Mellitus - Hyperlipidemia - Chronic Obstructive Pulmonary Disease (COPD) - Peripheral Neuropathy - Benign Prostatic Hyperplasia - Vertigo (recently developed) - Erectile Dysfunction - Kidney Infection (2019) - Obesity Medications: - Metformin 1000 mg daily for Type 2 Molly betes Mellitus - Gabapentin total 900 mg daily for Roxane pheral Neuropathy - Albuterol inhaler as needed for COPD - Tamsulosin for Benign Prostatic Hyperp lasia - Testosterone 200 mg intramuscular shot for Erectile Dysfunction Family History: - The patient has many siblings with chi ldren and grandchildren, but specific diseases were not detailed. Social: - History of smoking for 30 years, curre ntly active - Reports weight loss of 50 pounds - Lives with family and has extensive fa milial ties [facility] Medical History (Updated 12/07/24 @ 10:59 by Mac Rosa MD) Nicotine abuse SOB (shortness of breath) COPD (chronic obstructive pulmonary disease) TIA (transient ischemic attack) Stroke Steatosis of liver Osteoarthritis Lyme disease Infection due to Escherichia coli Hyperlipidemia Hyperkalemia Pyelonephritis HTN (hypertension) Diverticulosis Cervical disc disorder Acute kidney injury Back pain Asthma Type II diabetes mellitus Peyronie's disease Erectile dysfunction due to diseases classified elsewhere Enlarged prostate with lower urinary tract symptoms (LUTS) Other obstructive and reflux uropathy Rotator cuff impingement syndrome of left shoulder Elevated PSA Surgical History Hx of cervical spine surgery (06/28/23) H/O colonoscopy Hx of appendectomy History of surgery Family History (Updated 08/30/24 @ 10:49 by Tiffany Velasquez MA) Father No problems noted. Mother No problems noted. Social History Household Members: Significant Other Housing: Apartment Are you a primary director day care center to a significant other at home: No Do you presently have visiting nurse or other home services: No Alcohol intake: never Patient Tobacco Use Status: Current everyday Tobacco user Tobacco use type: Cigarette Cigarettes Per Day: 10 e-Cigarette/Vaping Use: Currently Using service: No Current occupational status: retired Current occupation: right handed Current occupational exposures/hazards: No Cognitive needs: No Hearing needs: No Vision needs: No Questionnaire PHQ-9 Over the last 2 weeks, how often have you been bothered by any of the following problems? 1. Little interest or pleasure in doing things: not at all 2. Feeling down, depressed, or hopeless: not at all 3. Trouble falling or staying asleep, or sleeping too much: not at all 4. Feeling tired or having little energy: not at all 5. Poor appetite or overeating: not at all 6. Feeling bad about yourself - or that you are a failure or have let yourself or your family down: not at all 7. Trouble concentrating on things, such as reading the newspaper or watching television: not at all 8. Moving or speaking so slowly that other people could have noticed. Or the opposite - being so fidgety or restless that you have been moving around a lot more than usual: not at all 9. Thoughts that you would be better off or of hurting yourself in some way: not at all Total score: 0 Depression Screening Interpretation: Negative Depression Screening Done: Yes 92513 - PHQ-9 Billing: Yes Source: Developed by Drs. Conrad Pendleton, Peggy Abdul, Mark Ashby and colleagues, with an educational jose from [email or web address]. Thrive Questionnaire Date Thrive assessed: 08/30/24 AUDIT C Alcohol Use Questionnaire (AUDIT-C) 1. How often do you have a drink containing alcohol?: Monthly or less 2. How many drinks containing alcohol do you have on a typical day when you are drinking?: 1 or 2 Total Score: 1 SHARON-7 AMB Questionnaire SHARON-7 Date SHARON - 7 assessed: 12/07/24 Feeling nervous, anxious, or on edge: 0 = Not at all Not being able to stop or control worryin = Not at all Worrying too much about different things: 0 = Not at all Trouble relaxin = Not at all Being so restless that it is hard to sit still: 0 = Not at all Becoming easily annoyed or irritable: 0 = Not at all Feeling afraid as if something awful might happen: 0 = Not at all Total SHARON-7 score (0-4 normal; 5-9 mild; 10-14 moderate; 15-21 severe): 0 Source: Developed by Drs. Conrad Pendleton, Mark Golden and colleagues, with an educational jose from [email or web address]. SHARON-7 Assessment Billing SHARON-7 Assessment Tool: SHARON-7 Assessment 46135 Review of Systems Const Details: - Neurological: Reports episodes of dizziness and vertigo - Respiratory: Denies recent exacerbations of COPD; acknowledges wheezing but did not use the inhaler this morning - Cardiovascular: Denies chest pain - Endocrine: Reports fluctuating blood glucose levels - ENT: No new sinus or nasal issues - Musculoskeletal: No new joint or muscle complaints - Dermatological: Denies skin changes or lesions All systems reviewed & are unremarkable except as noted in HPI and below Physical exam (Primary Care) Vital Signs: Last Vital Signs Temp 98.6 F 12/07/24 10:31 Pulse 95 12/07/24 10:31 Resp 20 12/07/24 10:31 BP 132/60 12/07/24 10:31 Pulse Ox 96 12/07/24 10:31 Oxygen Delivery Method Room Air 12/07/24 10:31 BMI result Body Mass Index 29.4 Tobacco/Smoking Status: Tobacco use Status Tobacco use date assessed 08/30/24 12/07/24 10:35 Patient Tobacco Use Status Current everyday Tobacco 12/07/24 10:35 Tobacco use type Cigarette 12/07/24 10:35 e-Cigarette/Vaping Use Currently Using 12/07/24 10:35 Depression Screening Interpretation: Negative Thrive Assessment: Date of Thrive Assessment Date Thrive assessed 08/30/24 12/07/24 10:35 Const Other: General: Alert and oriented, Well nourished, No acute distress. Eye: Pupils are equal, round and reactive to light, Intact accommodation, Extraocular movements are intact, Normal conjunctiva, Vision unchanged. HENT: Normocephalic, Atraumatic, Tympanic membranes are clear, Normal hearing, Oral mucosa is moist, No pharyngeal erythema, Ear canals patent. Respiratory: Lungs CTA bilaterally, Wheezing noted on the left lung, Respirations are non-labored. Cardiovascular: Regular rate, Regular rhythm, S1 auscultated, S2 auscultated, No murmur, Good pulses equal in all extremities, Normal peripheral perfusion, No edema. Gastrointestinal: Soft, Non-tender, Non-distended, Normal bowel sounds, No organomegaly. Musculoskeletal: Normal range of motion, Normal strength, No tenderness, No swelling, No deformity, Normal gait. Integumentary: Warm, Dry, [place], Intact. Neurologic: Alert, Oriented, Normal sensory, Normal motor function, No focal defects, Cranial Nerves II-XII are grossly intact, Normal deep tendon reflexes. Psychiatric: Cooperative, Appropriate mood & affect, Normal judgment. 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 in addition to glipizide 5. Has had a significant drop in his A1c from 7.5-6.5 as of August this year however said blood sugar readings at home times low as 80 therefore have recommended discontinuation of glipizide and to confirm metformin and Trulicity Code(s): E11.9 - Type 2 diabetes mellitus without complications Category: Medical Qualifiers: Diabetes mellitus complication detail: with other circulatory complications Diabetes mellitus complication status: with circulatory complication Diabetes mellitus alf insulin use: without alf use Qualified Code(s): E11.59 - Type 2 diabetes mellitus with other circulatory complications Plan: Continue Trulicity Continue metformin Stop glipizide (2) COPD (chronic obstructive pulmonary disease): Comment: - Reinforce smoking cessation - Continue Albuterol inhaler as needed Code(s): J44.9 - Chronic obstructive pulmonary disease, unspecified Category: Medical Qualifiers: COPD type: unspecified COPD Qualified Code(s): J44.9 - Chronic obstructive pulmonary disease, unspecified Plan: - Order lung cancer screening (3) Hyperlipidemia: Comment: Continue atorvastatin 10 mg daily and repeat a lipid panel at next clinic visit Code(s): E78.5 - Hyperlipidemia, unspecified Category: Medical Qualifiers: Hyperlipidemia type: unspecified Qualified Code(s): E78.5 - Hyperlipidemia, unspecified Plan: Continue atorvastatin 10 mg daily Order lipid panel next clinic visit Plan 4. Peripheral Neuropathy - Continue Gabapentin 900 mg daily 5. Benign Prostatic Hyperplasia - Continue Tamsulosin 7. Obesity - Maintain current weight loss and encourage further healthy lifestyle changes 8. Screening for colon cancer - Order Colonscopy Refferal Orders: Orders Hemoglobin A1c Today E11.59 - Type 2 diabetes mellitus with other circulatory complications Lipid Panel Today E78.5 - Hyperlipidemia, unspecified CT lung screening Today Z72.0 - Tobacco use Referrals Open Access Screening Colonoscopy Referral Z12.11 - Encounter for screening for malignant neoplasm of colon
[2024-12-07 10:31] VITALS: BP 132/60; PULSE 95; RESP 20; TEMP 37; O2SAT 96; BMI 29.4
--- OUTSIDE RECORDS SUMMARY | 2024-12-07 11:02 | XMS_ITS | Patient Health Record ---
Author Organization 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 for 1 day(s) 08/17/2012 04/11/2024 Active Problems Problem Type SNOMED Code ICD Code Onset Dates Problem Status W/U Status Risk Notes Problem Rectal bleeding (83813281) Rectal bleeding (569.3) Active confirmed Problem Long-term current use of insulin (338907353) Current use of insulin (V58.67) Active confirmed Plan Of Treatment Future Test Test Name Order Date COLONOSCOPY 08/17/2012 Insurance Providers Payer Name Payer Address Payer Phone Subscriber Number Group Number Insured Name Patient Relationship to Insured Coverage Start Date Coverage End Date [employer] [address] [place] [address] [id number] JARON DELUCA Self - patient is the insured Medical (General) History Medical History History ICD Code mini strokes X2 diabetes mellitus asthma hypertension Surgical History Surgery Date(Month/Year) disc surgery(neck) 2007 appendectomy
--- OUTSIDE RECORDS SUMMARY | 2024-12-07 11:02 | XMS_ITS | Clinical Summary ---
Author Organization [facility] Address [address] [place] [address] Phone Care Team Providers Care Cell Technician Name Role Phone Louis Max MD Primary Care Provider [phone] Allergies Active Allergy Reactions Criticality Noted Date [...] A1C 05/13/2020 020, 11/26/2019 Influenza Vaccine (#1) 2024 Hepatitis B Vaccine Aged Out No [...] % PVNMA 02/11/2020 us [facility] [id number] LICITED RESULTS Final Result PVNMA from Last 3 Months or Most Recently Relevant to Health Maintenance [place] Care Teams Cell Technician Relationship Specialty Start Date End Date Louis Max MD [address] [place] PCP - General 04/21/20
== END ==
PROVIDERS: PCP Student in an Organized Health Care Education/Training Program; Visit Provider Student in an Organized Health Care Education/Training Program
DX: E11.59 Type 2 diabetes mellitus with other circulatory complications (principal); J44.9 Chronic obstructive pulmonary disease, unspecified; E78.5 Hyperlipidemia, unspecified; Z00.00 Encounter for general adult medical examination without abnormal findings

== ENCOUNTER 2025-01-25 09:43 | Outpatient (AMB) | payer OTHER, SELFPAY ==
--- NOTE | 2025-01-25 10:08 | MHC.OFFVIS ---
Intake Visit Reasons: testopel Intake Note: patient presents today for: testopel urology medications: tadalafil, testosterone, tamsulosin blood thinners: none Lithographic Stripper Required: No Accompanied by: Spouse Allergies morphine (MORPHINE) Allergy (Unknown, Verified 01/25/25 10:09) NAUSEA, nausea and vomiting HPI Comments Details: Rao is a pleasant male. He is seen for the following urologic issues - hypogonadism in setting of diabetes - lower urinary tract symptoms - erectile dysfunction Here for initial T pellet placement Accompanied by Instructions provided to check labs at 2 weeks and 10 weeks Continue good response to tadalafil 5 mg daily Recommended use of T pellets - failure of gel absorption, logistics issues since cannot give himself T shots Lower urinary tract symptoms Progressive Current therapy Flomax Hypogonadism Long-term usage of testosterone gel Switched over to injectable 2020 Injection day Tuesday Laboratory day Tuesday Laboratories - 11/29 T 1000, hematocrit 42.9, PSA 0.43, 06/02 T 720 P 0.53 H 39, 11/30 536 0.7 44, 07/01 T 530 P 0.9 H 46, 01/01 T 825 P 1.4 H 47, 07/02 T 460 P0.5 42, 02/01 P 0.4 T300, 09/02 T66 PSA 0.75 Patient Peyronie disease which is asymptomatic since 09/27/2019? [facility] Medical History (Updated 12/21/24 @ 06:52 by Mac Rosa MD) Screening for lung cancer Nicotine abuse SOB (shortness of breath) COPD (chronic obstructive pulmonary disease) TIA (transient ischemic attack) Stroke Steatosis of liver Osteoarthritis Lyme disease Infection due to Escherichia coli Hyperlipidemia Hyperkalemia Pyelonephritis HTN (hypertension) Diverticulosis Cervical disc disorder Acute kidney injury Back pain Asthma Type II diabetes mellitus Peyronie's disease Erectile dysfunction due to diseases classified elsewhere Enlarged prostate with lower urinary tract symptoms (LUTS) Other obstructive and reflux uropathy Rotator cuff impingement syndrome of left shoulder Elevated PSA Surgical History Hx of cervical spine surgery (06/28/23) H/O colonoscopy Hx of appendectomy History of surgery Family History (Updated 08/30/24 @ 10:49 by Tiffany Velasquez MA) Father No problems noted. Mother No problems noted. Social History Household Members: Significant Other Housing: Apartment Are you a primary healthcare marketer to a significant other at home: No Do you presently have visiting nurse or other home services: No Alcohol intake: never Patient Tobacco Use Status: Current everyday Tobacco user Tobacco use type: Cigarette Cigarettes Per Day: 10 e-Cigarette/Vaping Use: Currently Using service: No Current occupational status: retired Current occupation: right handed Current occupational exposures/hazards: No Cognitive needs: No Hearing needs: No Vision needs: No Review of Systems Const Denies chills and Denies fever(s) Card Reports no additional complaints and Denies syncope Resp Denies cough GI Denies abdominal pain and Denies heartburn Reports as per HPI and Denies change in libido Neuro Denies syncope Psych Denies change in libido Endo Denies change in libido Physical Exam Const General: cooperative, healthy appearing, comfortable and no acute distress Orientation/consciousness: patient oriented x3 HEENT Face and sinus: Yes normal facial exam Mouth: moist mucous membranes Neck Neck: Yes normal visual inspection, Yes full ROM and Yes trachea midline Chest Chest palpation & inspection: normal inspection of the chest Resp Effort & Inspection: normal respiratory effort, able to speak in complete sentences and no respiratory distress GI Inspection: Yes normal to inspection Back/Spine/Pelvis Cervical Spine: normal cervical lordosis Thoracic/Lumbar Spine: thoracic and lumbar spine normal to inspection Skin General skin exam: no rashes or lesions noted Neuro General: patient oriented x3, gait normal, tone normal and moves all extremities Extrem General: Yes normal to inspection and Yes capillary refill normal Office Procedures AMB Testopel Details: Testopel Placement Pre Op Diagnosis - Low testosterone Post Op Diagnosis - Low Testosterone Procedure: Testopel Insertion Testopel was prepared for insertion. Six Testopel pellets were removed from the individual glass containers and placed in a sterile container. The patient was placed in right lateral position with right side down and left side up. The area over the left hip was cleaned with Betadine. A fenestrated drape was placed over the area. Lidocaine 2% was injected first as a skin wheal and then into the subcutaneous tissue directed in a fashion down towards the femur in the subcutaneous space to perform hydrodissection. The purpose of the injection is to numb the length of the trocar track. A 11 Blade scapel was used to make a puncture incision into the subcutaneous space. Trocar with sharp-ended stylet inserted through stab incision at a 45? angle and into the subcutaneous fat layer. The needle was flatten out and advanced leaving the pellet loading area exposed. 6 pellets were inserted using Adson forceps into the loading trocar in a V pattern. The blunt stylet was used to advance pellets into the tract while withdrawing the trocar - 4 pellets and 2 pellets placed in each arm of the V. Once completed the area was wiped with alcohol. Gentle pressure was applied for 2-3 minutes with gauze. The trocar insertion site was closed with multiple steristrips and a 2x2 gauze placed with a tegaderm dressing placed. CPT 42644 J3490 Office Meds Testopel 75 mg implant pellet Performing Provider: Norberto Dover MD Performing Location: [facility] Administered by: Norberto Dover MD on 01/25/25 13:55 Dose Route Admin Location Dispensed Lot Number Expiration Date NDC [employer] Solutions Supervisor 75 mg implant 6 ea Total Dispensed Waste 6 ea 0 % naproxen 500 mg tablet Performing Provider: Norberto Dover MD Performing Location: [facility] Administered by: Norberto Dover MD on 01/25/25 13:55 Dose Route Admin Location Dispensed Lot Number Expiration Date [employer] Supervisor 500 mg PO 1 tab Assessment & Plan Assessment & Plan (1) Erectile dysfunction associated with type 2 diabetes mellitus: Code(s): E11.69 - Type 2 diabetes mellitus with other specified complication; N52.1 - Erectile dysfunction due to diseases classified elsewhere Category: Medical (2) Hypogonadism in male: Code(s): E29.1 - Testicular hypofunction Category: Medical Plan Lab work Twelve week follow-up repeat administration Orders: Orders Testosterone, Total 2 Weeks E29.1 - Testicular hypofunction Testosterone, Total 10 Weeks E29.1 - Testicular hypofunction AMB Testosterone Pellet Implant Today E29.1 - Testicular hypofunction Patient Instructions: This note is constructed using voice recognition software. While every effort has been made to ensure accuracy manager star errors may have been included. Imaging studies, laboratory and physical exam results were discussed and reviewed in detail. No major barriers to patient understanding were identified. An opportunity to ask questions regarding the treatment plan was provided. All questions were answered. The patient expressed understanding and agreement with the above treatment plan. The patient is aware they should contact our office by phone for worsening of their current condition or the appearance of new urologic symptoms. Compliance is encouraged with any medications and followup testing that is ordered. It is a privilege to participate in the urologic care of your patient. If you have any questions or concerns regarding treatment for the above conditions, or other urologic issues, please do not hesitate to contact me. The office telephone contact is [phone]. Sincerely, Dr Norberto Dover MD, [facility] - Urology Compassionate Specialist Care for the Genitourinary System Coding Level of Care Code Est Pt Level 3 (10203) Complex EM visit Add On G2211 Diagnoses Erectile dysfunction associated with type 2 diabetes mellitus E11.69; N52.1 Hypogonadism in male E29.1
--- OUTSIDE RECORDS SUMMARY | 2025-01-25 11:09 | XMS_ITS | Patient Health Record ---
Author Organization [facility] Address [address] [place] [address] Care Team Providers Care Kiln Tester Name Role Phone Mansoor (RETIRED) Louis SEWELL [...] GM As directed Orally Over the specified time.; Duration: 1 day(s) 08/17/2012 04/11/2024 Active Problems Problem Type SNOMED Code ICD Code Onset Dates Problem Status W/U Status Risk Notes Problem Rectal bleeding (90733409) Rectal bleeding (569.3) Active confirmed Problem Long-term current use of insulin (264123237) Current use of insulin (V58.67) Active confirmed Plan Of Treatment Future Test Test Name Order Date COLONOSCOPY 08/17/2012 Insurance Providers Payer Name Payer Address Payer Phone Subscriber Number Group Number Insured Name Patient Relationship to Insured Coverage Start Date Coverage End Date MEDICA[employer] [address] [place] [phone] [id number] JARON DELUCA Self - patient is the insured Medical (General) History Medical History History ICD Code mini strokes X2 diabetes mellitus asthma hypertension Surgical History Surgery Date(Month/Year) disc surgery(neck) 2007 appendectomy
--- OUTSIDE RECORDS SUMMARY | 2025-01-25 11:09 | XMS_ITS | Clinical Summary ---
Author Organization [facility] Address [address] [place] [address] Phone Care Team Providers Care Private Banker Name Role Phone Louis Max MD Primary Care Provider Allergies Active Allergy Reactions Criticality Noted Date [...] % PVNMA 02/11/2020 us [facility] [id number] LICITED RESULTS Final Result PVNMA from Last 3 Months or Most Recently Relevant to Health Maintenance Insurance [place] Care Teams Private Banker Relationship Specialty Start Date End Date Louis Max MD [address] [place] PCP - General 04/21/20
== END 2025-01-25 11:13 | disposition home or self-care (01) ==
LOC: HO.HUSH 09:43
PROVIDERS: PCP Internal Medicine; Visit Provider Urology
DX: E11.69 Type 2 diabetes mellitus with other specified complication (principal); N52.1 Erectile dysfunction due to diseases classified elsewhere; E29.1 Testicular hypofunction
CPT/HCPCS: 11980; 99213

== ENCOUNTER → 2025-01-25 09:43 | Outpatient (BNVA) | payer OTHER, SELFPAY | PROVIDERS: PCP Internal Medicine; Visit Provider Urology | DX: E29.1 Testicular hypofunction (principal) | CPT/HCPCS: 11980; 99212; J3490 ==

== ENCOUNTER 2025-02-15 11:00 | Outpatient (REF) | payer OTHER, SELFPAY ==
--- OUTSIDE RECORDS SUMMARY | 2025-02-15 13:13 | XMS_ITS | Clinical Summary ---
Author Organization [facility] Address [address] [place] [address] Phone Care Team Providers Care Manager Inventory Name Role Phone Louis Max MD Primary Care Provider [phone] Allergies Active Allergy Reactions Criticality Noted Date [...] % PVNMA 02/11/2020 us [facility] [id number] LICITED RESULTS Final Result PVNMA from Last 3 Months or Most Recently Relevant to Health Maintenance Insurance [place] Care Teams Manager Inventory Relationship Specialty Start Date End Date Louis Max MD [address] [place] PCP - General 04/21/20
--- OUTSIDE RECORDS SUMMARY | 2025-02-15 13:13 | XMS_ITS | Patient Health Record ---
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 Name Role Phone Mansoor (RETIRED) Louis [...] W/U Status Risk Notes Problem Rectal bleeding (62424468) Rectal bleeding (569.3) Active confirmed Problem Long-term current use of insulin (267793039) Current use of insulin (V58.67) Active confirmed Plan Of Treatment Future Test Test Name Order Date COLONOSCOPY 08/17/2012 Insurance Providers Payer Name Payer Address Payer Phone Subscriber Number Group Number Insured Name Patient Relationship to Insured Coverage Start Date Coverage End Date [employer] OF [employer] [address] [place] [phone] [id number] JARON DELUCA Self - patient is the insured Medical (General) History Medical History History ICD Code mini strokes X2 diabetes mellitus asthma hypertension Surgical History Surgery Date(Month/Year) disc surgery(neck) 2007 appendectomy
== END 2025-02-15 11:01 | disposition home or self-care (01) ==
LOC: HO.10HDL 11:00
PROVIDERS: Visit Provider Urology
DX: E29.1 Testicular hypofunction (principal)
CPT/HCPCS: 36415; 84403